=== PATIENT | male | born 1950 | race Caucasian/White ===

== ENCOUNTER 2017-08-15 07:22 | Outpatient (CLI) | payer MEDICARE, BC ==
--- NOTE | 2017-08-15 08:16 | ULT ---
RIGHT UPPER QUADRANT ULTRASOUND: HISTORY: Right-sided swelling for years. FINDINGS: Correlation is made with the CT stone protocol of 07/09/15. The liver measures 20.8 cm in length. There is mild inhomogeneity in the echotexture without focal mass or intrahepatic ductal dilatation. On the single image of the gallbladder, there is a question able shadowing gallstone. No gallbladder wall thickening or pericholecystic fluid is seen. The com mon duct measures 5 mm in diameter. The pancreas is normal. No right-sided hydronephrosis is seen. There are echogenic foci in the right kidney. No free fluid is seen in the Calderon's pouch. No definite mass is identified in the region of concern. IMPRESSION: 1. Hepatomegaly. 2. Probable gallstones. 3. Nonobstructing right renal calculi. POS: JAMIE
== END 2017-08-15 07:23 | disposition home or self-care (01) ==
LOC: ULT 07:22
PROVIDERS: ATTEND Family Medicine
DX: R19.00 Intra-abdominal and pelvic swelling, mass and lump, unspecified site (principal); R16.0 Hepatomegaly, not elsewhere classified; N20.0 Calculus of kidney
CPT/HCPCS: 76705

== ENCOUNTER 2018-08-19 10:18 | Emergency (ER) | payer MEDICARE, BC ==
[2018-08-19 11:00] LABS: #Basophils 0.1 thou/uL (0.0-0.2); #Eosinphils 0.2 thou/uL (0.0-0.7); #Lymphocytes 3.2 thou/uL (1.20-3.40); #Monocytes 0.4 thou/uL (0.11-0.59); #Neutrophils 5.8 thou/uL (1.40-6.50); %Basophils 1.1 % (0.0-1.0); %Eosinophils 1.7 % (0.0-10.0); %Lymphocytes 33.1 % (21.0-51.0); %Monocytes 4.3 % (0.0-10.0); %Neutrophils 59.8 % (42.0-75.0); Hemoglobin 14.3 g/dL (14.0-18.0); Mean Corpuscular HGB CONC 33.9 g/dL (32.0-36.0); Mean Corpuscular Hemoglobin 32.8 pg (27.0-31.0); Mean Corpuscular Volume 96.7 fL (78.0-98.0); Platelet Count 336 thou/uL (130-400); RBC Distribution Width 12.9 % (11.5-14.5); Red Blood Cell (RBC) Count 4.36 mill/uL (4.70-6.10); White Blood Cell (WBC) Count 9.6 thou/uL (4.8-10.8)
[2018-08-19 11:27] LABS: ALT (SGPT) 11 U/L (8-55); AST (SGOT) 29 U/L (5-34); Albumin 4.1 g/dL (3.4-4.8); Alkaline Phosphatase 107 U/L (40-150); Anion Gap 14 mmol/L (10-20); BUN (Urea Nitrogen) 20 mg/dL (8.4-25.7); Bilirubin, Total 0.3 mg/dL (0.2-1.2); CKMB 3.6 ng/mL (0-6.6); Calc. Creatinine Clearance 0 mL/min (70-130); Calcium 10.2 mg/dL (7.8-10.44); Carbon Dioxide 29 mmol/L (23-31); Chloride 98 mmol/L (98-107); Estimated GFR-MDRD 88; Globulin 4.1 g/dL (2.4-3.5); Glucose 153 mg/dL (80-115); Potassium 4.3 mmol/L (3.5-5.1); Protein, Total 8.2 g/dL (5.8-8.1); Sodium 137 mmol/L (136-145); Troponin I Less than 0.010 ng/mL (< 0.028)
--- NOTE | 2018-08-19 12:45 | CT ---
CT HEAD NONCONTRAST: INDICATIONS: Posttraumatic head injury. Pain. FINDINGS: There is prominence of the ventricular system, which is out of proportion to the size of the cerebral sulci. There is multifocal hypoattenuation of the cerebral hemispheres, compatible with moderate is chemic disease. There is superimposed left frontal encephalomalacia. No intracranial hemorrhage, ma ss effect, or midline shift. No depressed calvarial fracture or acute fluid level of the imaged para nasal sinuses. IMPRESSION: 1. No acute intracranial hemorrhage or mass effect. 2. Moderate ischemic disease with superimposed left frontal encephalomalacia. 3. Prominent sized ventricular system, out of proportion to the size of the cerebral sulci. Recomme nd clinical correlation to exclude normal pressure hydrocephalus. POS: JAMIE
[2018-08-19 12:47] LABS: Bilirubin Negative (Negative); Blood, Urine Negative (Negative); Clarity CLEAR (Clear); Glucose, Urine (Dipstick) Negative (Negative); Leukocyte Negative (Negative); Nitrite Negative (Negative); Protein, Urine (Dipstick) Trace mg/dL (Neg-Trace); Specific Gravity, Urine 1.024 (1.002-1.036)
== END 2018-08-19 18:57 | disposition home or self-care (01) ==
LOC: ERS 10:18
DX: S09.90XA Unspecified injury of head, initial encounter (principal); E11.9 Type 2 diabetes mellitus without complications; K21.9 Gastro-esophageal reflux disease without esophagitis; E78.5 Hyperlipidemia, unspecified; I10 Essential (primary) hypertension; G20 Parkinson's disease; E66.9 Obesity, unspecified; F32.9 Major depressive disorder, single episode, unspecified; F25.9 Schizoaffective disorder, unspecified; F42.9 Obsessive-compulsive disorder, unspecified; Z79.899 Other long term (current) drug therapy; Z79.4 Long term (current) use of insulin; W19.XXXA Unspecified fall, initial encounter
CPT/HCPCS: 36415; 36416; 70450; 80053; 81003; 82553; 83880; 84484; 85025; 93005

== ENCOUNTER 2018-11-28 08:56 | Emergency (ER) | payer MEDICARE, BC ==
[2018-11-28 09:47] LABS: #Eosinphils 0.3 thou/uL (0.0-0.7); #Lymphocytes 2.8 thou/uL (1.20-3.40); #Monocytes 0.9 thou/uL (0.11-0.59); #Neutrophils 7.4 thou/uL (1.40-6.50); %Basophils 0.4 % (0.0-1.0); %Eosinophils 2.6 % (0.0-10.0); %Lymphocytes 24.2 % (21.0-51.0); %Monocytes 8.1 % (0.0-10.0); %Neutrophils 64.6 % (42.0-75.0); Hemoglobin 14.8 g/dL (14.0-18.0); Mean Corpuscular HGB CONC 33.4 g/dL (32.0-36.0); Mean Corpuscular Hemoglobin 31.2 pg (27.0-31.0); Mean Corpuscular Volume 93.4 fL (78.0-98.0); Mean Platelet Volume 7.1 fL (7.4-10.4); Platelet Count 316 thou/uL (130-400); RBC Distribution Width 12.5 % (11.5-14.5); Red Blood Cell (RBC) Count 4.75 mill/uL (4.70-6.10); White Blood Cell (WBC) Count 11.5 thou/uL (4.8-10.8)
[2018-11-28 10:34] LABS: ALT (SGPT) 21 U/L (8-55); AST (SGOT) 30 U/L (5-34); Alkaline Phosphatase 112 U/L (40-150); Anion Gap 17 mmol/L (10-20); BUN (Urea Nitrogen) 17 mg/dL (8.4-25.7); Bilirubin, Total 0.4 mg/dL (0.2-1.2); Calc. Creatinine Clearance 0 mL/min (70-130); Carbon Dioxide 23 mmol/L (23-31); Chloride 101 mmol/L (98-107); Estimated GFR-MDRD Greater than 90; Glucose 141 mg/dL (80-115); Sodium 137 mmol/L (136-145)
--- NOTE | 2018-11-28 10:35 | RAD ---
CHEST 1 VIEW: Date: 11/28/18 HISTORY: Cough, worsening chronic pain. COMPARISON: 04/17/17. FINDINGS: Monitor leads overlie the chest. Old granulomatous disease. Right hemidiaphragm elevation, stable. Bi apical pleural thickening. IMPRESSION: Mild stable chronic changes. No confluent pneumonia, overt edema, pleural effusion, or other acute pr ocess. Atherosclerosis of the aorta. POS: TPC
[2018-11-28 11:12] LABS: Bilirubin Negative (Negative); Blood, Urine Negative (Negative); Clarity CLEAR (Clear); Glucose, Urine (Dipstick) Negative (Negative); Leukocyte Negative (Negative); Nitrite Negative (Negative); Protein, Urine (Dipstick) 30 mg/dL (Neg-Trace); Specific Gravity, Urine 1.023 (1.002-1.036)
[2018-11-28 11:16] LABS: Bacteria/HPF None Seen HPF (None Seen); Hyaline Casts/LPF 7-10 HYALINE CAST LPF (0-3 Hyaline); RBC/HPF 0-3 HPF (0-3); Squamous Epithelial 0-3 HPF (0-3); WBC/HPF 0-3 HPF (0-3)
== END 2018-11-28 12:41 | disposition home or self-care (01) ==
LOC: ERS 08:56
DX: G20 Parkinson's disease (principal); K21.9 Gastro-esophageal reflux disease without esophagitis; E11.9 Type 2 diabetes mellitus without complications; E78.5 Hyperlipidemia, unspecified; I10 Essential (primary) hypertension; E66.9 Obesity, unspecified; F32.9 Major depressive disorder, single episode, unspecified; F25.9 Schizoaffective disorder, unspecified; F41.9 Anxiety disorder, unspecified; Z79.899 Other long term (current) drug therapy; Z79.84 Long term (current) use of oral hypoglycemic drugs; Z79.82 Long term (current) use of aspirin; W19.XXXA Unspecified fall, initial encounter
CPT/HCPCS: 36415; 71045; 80053; 81003; 81015; 84484; 85025; 93005

== ENCOUNTER 2019-03-04 08:41 | Inpatient (IN) | payer MEDICARE, BC ==
[2019-03-04 10:00] LABS: #Basophils 0.1 thou/uL (0.0-0.2); #Eosinphils 0.1 thou/uL (0.0-0.7); #Lymphocytes 1.8 thou/uL (1.20-3.40); #Monocytes 0.6 thou/uL (0.11-0.59); #Neutrophils 15.1 thou/uL (1.40-6.50); %Basophils 0.3 % (0.0-1.0); %Eosinophils 0.5 % (0.0-10.0); %Lymphocytes 10.2 % (21.0-51.0); %Monocytes 3.4 % (0.0-10.0); %Neutrophils 85.6 % (42.0-75.0); Hemoglobin 12.7 g/dL (14.0-18.0); Mean Corpuscular Hemoglobin 32.6 pg (27.0-31.0); Mean Corpuscular Volume 95.9 fL (78.0-98.0); Mean Platelet Volume 6.9 fL (7.4-10.4); Platelet Count 316 thou/uL (130-400); RBC Distribution Width 12.4 % (11.5-14.5); White Blood Cell (WBC) Count 17.6 thou/uL (4.8-10.8)
--- NOTE | 2019-03-04 10:10 | RAD ---
Exam: Chest one view HISTORY:Loss of consciousness Comparison: 11/28/2018 FINDINGS: Cardiac silhouette:Enlarged Pulmonary vessels: Normal Costophrenic angles: Clear LUNGS: Patchy opacity in the left lung base which obscures the left hemidiaphragm. Correlate for pneu monia, atelectasis or aspiration. Persistent elevation of the right hemidiaphragm. Pneumothorax: None Osseous abnormalities: None IMPRESSION: Left lower lobe opacity as described above. Continued surveillance to ensure resolution.
[2019-03-04 10:27] LABS: Bilirubin Negative (Negative); Blood, Urine Negative (Negative); Clarity CLEAR (Clear); Glucose, Urine (Dipstick) Negative (Negative); Leukocyte Negative (Negative); Nitrite Negative (Negative); Protein, Urine (Dipstick) 30 mg/dL (Neg-Trace); Specific Gravity, Urine 1.024 (1.002-1.036)
[2019-03-04 10:31] LABS: Bacteria/HPF None Seen HPF (None Seen); Hyaline Casts/LPF 4-6 HYALINE CAST LPF (0-3 Hyaline); Pathc Cast-AUWi Flag 0.95 (0-2.49); RBC/HPF 0-3 HPF (0-3); Squamous Epithelial 0-3 HPF (0-3); WBC/HPF None Seen HPF (0-3)
[2019-03-04 10:33] LABS: ALT (SGPT) 18 U/L (8-55); AST (SGOT) 20 U/L (5-34); Albumin 3.8 g/dL (3.4-4.8); Alkaline Phosphatase 98 U/L (40-150); Anion Gap 13 mmol/L (10-20); BUN (Urea Nitrogen) 23 mg/dL (8.4-25.7); Bilirubin, Total 0.2 mg/dL (0.2-1.2); CK (CPK) 174 U/L (30-200); Calc. Creatinine Clearance 0 mL/min (70-130); Calcium 9.6 mg/dL (7.8-10.44); Carbon Dioxide 27 mmol/L (23-31); Chloride 104 mmol/L (98-107); Estimated GFR-MDRD 88; Globulin 3.3 g/dL (2.4-3.5); Glucose 136 mg/dL (80-115); Lipase 67 U/L (8-78); Potassium 3.7 mmol/L (3.5-5.1); Protein, Total 7.1 g/dL (5.8-8.1); Sodium 140 mmol/L (136-145)
[2019-03-04] MEDS ORDERED: Vancomycin HCl 750 MG in Sodium Chloride 0.9% 250 ML 250 ML IVPB SCH (10:45)
[2019-03-04 10:53] LABS: CKMB 5.3 ng/mL (0-6.6)
[2019-03-04] MEDS ORDERED: Aspirin Chewable 81 MG TAB ONE (10:58)
[2019-03-04] MEDS ORDERED: Piperacillin/Tazobactam 4.5 GM VIAL ONE ×2 (10:58→11:14)
[2019-03-04] MEDS ORDERED: Ondansetron PF 4 MG/2 ML Vial ONE (10:58)
--- NOTE | 2019-03-04 10:59 | CT ---
Exam: CT cervical spine without contrast HISTORY: Trauma. Pain. COMPARISON: 04/17/2017 FINDINGS: No craniocervical dissociation. Appropriate alignment of the lateral masses of C1 and C2. Intact odon toid process Appropriate alignment of the facets. Straightening of normal cervical lordosis may be due to patient position, muscle spasm or cervical collar. Current study does not assess for ligamentous injury. Soft tissue neck structures: No mass, lymphadenopathy or hematoma. No prevertebral soft tissue swelli ng. Upper mediastinum and lung apices: Unremarkable Central spinal canal: Varying degrees of central canal stenosis and neural foraminal narrowing on the basis of degenerative change. There is severe left neural foraminal narrowing at C3-C4 due to uncovertebral hypertrophy.. Evaluation is limited by technique Vertebral bodies: Cervical spine vertebral body height is maintained. No fracture. IMPRESSION: 1. No fracture 2. Straightening of normal cervical lordosis as above. If there is concern for ligamentous injury, co nsider MRI.
--- NOTE | 2019-03-04 11:31 | CT ---
CT BRAIN WITHOUT CONTRAST: HISTORY: Laceration to the back of the head. Altered mental status. COMPARISON: 08/19/2018 FINDINGS: Left frontal encephalomalacia and changes of chronic small vessel ischemic disease are again seen. T he ventricular size is stable, and the basilar cisterns are patent. No evidence of acute infarct, he morrhage, midline shift, or abnormal extraaxial fluid collections is seen. The bony calvarium is int act. The visualized paranasal sinuses and mastoid air cells are well aerated. IMPRESSION: No CT evidence of acute intracranial process. POS: OFF
[2019-03-04] MEDS ORDERED: Acetaminophen 325 MG TAB PO PRN (11:58)
[2019-03-04] MEDS ORDERED: Bisacodyl 5 MG TAB PO PRN (11:58)
[2019-03-04] MEDS ORDERED: Vancomycin HCl 1 GM in Premix Bag 1 BAG IVPB SCH (12:00)
[2019-03-04] MEDS ORDERED: Dextrose 50% Abboject 50 ML SYRINGE SLOW IVP PRN (12:36)
[2019-03-04] MEDS ORDERED: Dextrose 5% in Water 1,000 ML IV PRN (12:36)
--- NOTE | 2019-03-04 13:04 | HP ---
PRIMARY CARE PROVIDER: Dr. Jm Rizo. CHIEF COMPLAINT: Fall. HISTORY OF PRESENT ILLNESS: Mr. Arevalo is a pleasant 68-year-old gentleman, who was seen at [facility] on March 04, 2019. He reports that last night, he got out of bed to urinate. He had a fall at that time. He denies any chest pain or palpitations at that time. He denies any lightheadedness. He does not know how he fell. He was found by EMS on the floor face forward, complaining of pain in his neck. He currently denies any chest pain or shortness of breath. He denies any cough. He denies any fevers or chills. He denies any urinary symptoms. REVIEW OF SYSTEMS: All other systems reviewed and found to be negative. PAST MEDICAL HISTORY: 1. Hypertension. 2. Diabetes mellitus. 3. Parkinson disease. 4. Gastroesophageal reflux disease. 5. Dyslipidemia. 6. Nephrolithiasis. PAST SURGICAL HISTORY: Surgery for deviated septum, tonsillectomy, growth on penis, and nephrolithiasis. PSYCHIATRIC HISTORY: Anxiety. SOCIAL HISTORY: The patient denies tobacco use, alcohol use, or recreational drug use. He lives at home. FAMILY HISTORY: Significant for heart disease. ALLERGIES: NO KNOWN DRUG ALLERGIES. CURRENT MEDICATIONS: 1. Metformin 500 mg 2 times a day. 2. Verapamil 180 mg daily. 3. Venlafaxine 150 mg daily. 4. Olanzapine 10 mg daily. 5. Losartan 100 mg daily. 6. Levothyroxine 50 mcg daily. 7. Clomipramine 75 mg, 3 capsules daily. 8. Amitiza 24 mcg daily. 9. Aspirin 81 mg daily. 10. Colace p.r.n. 11. Fish oil 1000 mg daily. 12. Hydrochlorothiazide 25 mg daily. 13. Tamsulosin 0.4 mg daily. 14. Zoloft 25 mg daily. 15. Atorvastatin 10 mg daily. 16. Carbidopa 2 times a day. PHYSICAL EXAMINATION: GENERAL: On examination, Mr. Arevalo is awake and alert, not in acute distress. VITAL SIGNS: Blood pressure is 167/85, pulse 99, respiratory rate 16, and oxygen saturation 98% on 2 L of oxygen. He is afebrile. EYES: No scleral icterus, no conjunctival pallor. ENT: Moist mucosal membranes. No oropharyngeal erythema or exudates. NECK: He has a cervical collar in place. Trachea is midline. RESPIRATORY: Accessory muscles of breathing are not active. Chest wall movements are symmetric bilaterally. Lungs are clear to auscultation without wheeze, rhonchi, or crepitations. CARDIOVASCULAR: S1 and S2 are heard, regular. Peripheral pulses palpable. No carotid bruit. No pericardial rub. NEUROLOGIC: Cranial nerves 2 through 12 intact, deep tendon reflexes 2+. The patient has tremor. MUSCULOSKELETAL: Power is 5/5 in all 4 extremities. ABDOMEN: Soft, nontender, bowel sounds are heard. SKIN: Blood over the posterior occiput. LYMPHATIC: No cervical lymphadenopathy. PSYCHIATRIC: Normal mood, normal affect, the patient is oriented to person, place, and time. LABORATORY DATA AND IMAGING: Mr. Arevalo's labs and investigations were reviewed. I reviewed his electrocardiogram, which shows normal sinus rhythm, no ST changes to suggest an acute coronary syndrome. I also reviewed his chest x-ray, which shows left lower lobe opacity. CT scan of the cervical spine did not show any fracture. There was straightening of normal cervical lordosis. Noncontrast CT scan of the brain did not show any acute intracranial process. He has leukocytosis with 17,600 white cells, of which 85.6% are neutrophils, normocytic anemia with hemoglobin 12.7, normal platelet count, unremarkable comprehensive metabolic profile, normal lipase, indeterminate troponin-I of 0.044, and urinalysis that is negative for nitrite and leukocyte esterase. CK is normal. ASSESSMENT AND PLAN: Mr. Arevalo is a pleasant 68-year-old gentleman, who was seen at [facility] on March 04, 2019. His problem list includes: 1. Sepsis: Mr. Arevalo is presenting with sepsis, most likely secondary to pneumonia. He will be admitted to the hospital for further management. 2. Pneumonia: The patient has received vancomycin and Zosyn, which I will continue. We will follow blood cultures. 3. Fall: Emergency room physician has discussed his case with Neurosurgery Service, regarding CT spine findings. We will await their opinion. 4. Parkinson disease: We will continue home medications. 5. Diabetes mellitus type 2: We will start Accu-Cheks and insulin sliding scale. 6. Dyslipidemia: Continue statin. 7. Hypothyroidism: Continue levothyroxine. LEVEL OF RISK: High. LEVEL OF COMPLEXITY: High. Many thanks for allowing me to participate in your patient's care. Please feel free to contact me with any questions or concerns. Job ID: [id number]
[2019-03-04 13:39] LABS: Troponin I 0.093 ng/mL (< 0.028)
[2019-03-04 17:54] LABS: Troponin I 0.061 ng/mL (< 0.028)
[2019-03-04] MEDS: Piperacillin/Tazobactam 4.5 GM in Sodium Chloride 0.9% 100 ML IVPB SCH (22:32)
--- NOTE | 2019-03-05 01:58 | CON ---
DATE OF CONSULTATION: This is Samson Brown PA-C dictating a report for Geoff Leos MD. This is a 50 minutes [id number] evaluation of which greater than 50% of the exam was spent in counseling and coordinating the patient's care. Remainder of the exam was spent review of the patient's medical records and formulation of treatment plan as well as review of appropriate imaging studies. CHIEF COMPLAINT: Status post fall with posterior neck pain. HISTORY OF PRESENT ILLNESS: Mr. Lux is a 68-year-old male who lives in a [place] [facility] [place], apparently fell earlier this morning when attempting to go to the bathroom. He states he has had moderate posterior neck pain over the past several weeks, it was slightly worse today after a fall. He denies headaches, blurred vision, pain into the arms or legs or balance difficulties. He is a rather poor historian. He was found to have elevated troponin levels in the ER as well as pneumonia infection. Complained of again neck pain and was placed in an [place] collar. Review of patient's head CT shows no acute hemorrhage. Review of patient's cervical spine CT shows no acute fracture or malalignment of spine. The patient is on 81 mg aspirin for cardiac prophylaxis. He does not appear to have a history of CVA or CA. The patient also has a history of Parkinson disease with tremor. PHYSICAL EXAMINATION: GENERAL: The patient is awake, alert, and appropriate. His GCS currently is 15. HEENT: Pupils are equal, round, reactive bilaterally. EXTREMITIES: He has good strength in the bilateral upper and bilateral lower extremities. He does have tremors consistent with Parkinson's disease. He is in a well-fitting [place] collar. Upon palpation of the neck, he does not appear to grimace or have any type of significant pain. IMPRESSION AND DIAGNOSIS: Status post fall with [id number] neck pain. PLAN: I have discussed the patient's case and imaging with Dr. Leos. At this time, there is no acute hemorrhage of the brain, so should the patient need blood thinners given his elevated troponin levels, we will defer to Cardiology in this regard. Never the less, we will keep the patient in his [place] collar overnight although may be able to remove this tomorrow morning as the patient states his neck pain has gotten better with time. Our medical colleagues have admitted the patient and will continue close monitoring of his multiple medical issues. We will check back on the patient, but otherwise he is neurologically intact and does not require any type of neurosurgical intervention. We will hold on MRI at this time as again the patient does not have any neurologic deficits nor does he have any cervical radiculopathy complaints. Please call with any changes in the patient's neurologic status, otherwise we will check back on the patient later. Job ID: [id number]
[2019-03-05 02:25] VITALS: BMI 34.2
[2019-03-05] MEDS: Piperacillin/Tazobactam 4.5 GM in Sodium Chloride 0.9% 100 ML IVPB SCH ×3 (04:13→21:40)
[2019-03-05 05:57] LABS: #Basophils 0.1 thou/uL (0.0-0.2); #Eosinphils 0.2 thou/uL (0.0-0.7); #Lymphocytes 3.5 thou/uL (1.20-3.40); #Monocytes 0.7 thou/uL (0.11-0.59); #Neutrophils 8.3 thou/uL (1.40-6.50); %Basophils 0.8 % (0.0-1.0); %Eosinophils 1.4 % (0.0-10.0); %Lymphocytes 27.4 % (21.0-51.0); %Monocytes 5.4 % (0.0-10.0); Hemoglobin 12.3 g/dL (14.0-18.0); Mean Corpuscular HGB CONC 33.6 g/dL (32.0-36.0); Mean Corpuscular Hemoglobin 32.3 pg (27.0-31.0); Mean Corpuscular Volume 96.3 fL (78.0-98.0); Mean Platelet Volume 7.1 fL (7.4-10.4); Platelet Count 320 thou/uL (130-400); RBC Distribution Width 12.6 % (11.5-14.5); Red Blood Cell (RBC) Count 3.79 mill/uL (4.70-6.10); White Blood Cell (WBC) Count 12.7 thou/uL (4.8-10.8)
[2019-03-05 06:24] LABS: Anion Gap 11 mmol/L (10-20); BUN (Urea Nitrogen) 18 mg/dL (8.4-25.7); Calc. Creatinine Clearance 125 mL/min (70-130); Calcium 9.1 mg/dL (7.8-10.44); Carbon Dioxide 28 mmol/L (23-31); Chloride 104 mmol/L (98-107); Estimated GFR-MDRD Greater than 90; Glucose 174 mg/dL (80-115); Potassium 3.9 mmol/L (3.5-5.1); Sodium 139 mmol/L (136-145)
--- NOTE | 2019-03-05 08:59 | PRG ---
DATE OF SERVICE: 03/05/2019 This is Samson Brown PA-C dictating a report for Geoff Leos MD. This is a 10-minute subsequent patient evaluation, in which greater than 50% of the exam was spent in counseling and coordinating the patient's care. Remainder of the exam was spent in review of the patient's medical records and formulation of treatment plan. Mr. Arevalo is hospital day #1, having sustained an unwitnessed fall yesterday. He was found to have pneumonia and possibly his sepsis, which our medical colleagues are treating this. In regard to the patient's neck pain, he states that he has increased neck pain secondary to the restriction of his [place] collar. With tenderness to palpation of the cervical spine, he has no increased pain. He has no arm pain. He has good strength in bilateral upper and bilateral lower extremities with intact sensation to light touch throughout. At this time, it is safe to remove his [place] collar. Should this be removed, and the patient has increased neck pain, we will replace the [place] collar. We will follow up with the patient in the next 2 weeks with upright AP flexion and extension of cervical spine x-rays in the office. At this time, Neurosurgery will sign off, but certainly call with any changes in the patient's neurologic status. Job ID: [id number]
[2019-03-05] MEDS ORDERED: Prevnar 13-Val Conj/PF 0.5 ML SYRINGE IM ONE (09:00)
[2019-03-05] MEDS ORDERED: Vancomycin HCl 1.75 GM in Sodium Chloride 0.9% 500 ML IVPB SCH (09:00)
[2019-03-05] MEDS: Vancomycin HCl 1.75 GM in Sodium Chloride 0.9% 500 ML IVPB SCH ×2 (12:10→23:16)
--- NOTE | 2019-03-05 15:26 | PDOC.PN ---
- Subjective Encounter Start Date: 03/05/19 Encounter Start Time: 15:20 Subjective: f/u for sepsis due to LLL PNA on Zosyn/Vancomycin. Feels ok overall. -: + BM. No new complaints. - Objective Resuscitation Status - Order Detail: 03/04/19 11:58 Resuscitation Status Routine Resuscitation Status: FULL: Full Resuscitation Discussed with: patient LAMBERTO Reviewed: Yes Vital Signs & Weight: Vital Signs (12 hours) Temp Pulse Pulse Pulse Resp BP BP 03/05/19 11:30 91 89 139/64 145/71 H 03/05/19 11:27 97.3 F L 85 16 03/05/19 08:00 98.3 F 85 18 03/05/19 04:07 97.8 F 88 18 BP Pulse Ox 03/05/19 11:30 03/05/19 11:27 127/69 03/05/19 08:00 139/72 92 L 03/05/19 04:07 129/69 97 Weight Weight 225 lb 6.4 oz I&O: 03/04/19 03/05/19 03/06/19 06:59 06:59 06:59 Intake Total 300 Balance 300 Result Diagrams: 03/05/19 05:00 03/05/19 05:00 Additional Labs: Accuchecks 03/05/19 03/05/19 03/05/19 10:57 05:23 01:35 POC Glucose 182 H 195 H 194 H 03/05/19 00:21 POC Glucose 194 H Microbiology 03/04/19 11:09 Venous blood - Left Hand Blood Culture - Preliminary Specimen has been received and culture in progress. No Growth to date. 03/04/19 11:07 Venous blood - Right Arm Blood Culture - Preliminary Specimen has been received and culture in progress. No Growth to date. 03/04/19 09:55 Urine clean catch Urine Culture - Preliminary Laboratory Tests 03/04/19 03/05/19 09:51 05:00 WBC 17.6 H Hgb 12.7 L Neutrophils % 85.6 H 65.0 EKG Reviewed by me: Yes (Tele - SR) Phys Exam - Physical Examination Constitutional: NAD HEENT: PERRLA, sclera anicteric, oral pharynx no lesions Neck: no nodes, no JVD, supple, full ROM Respiratory: no wheezing, no rales, no rhonchi, clear to auscultation bilateral Cardiovascular: RRR, no significant murmur, no rub, gallop Gastrointestinal: soft, non-tender, no distention, positive bowel sounds Musculoskeletal: no edema, pulses present Neurological: normal sensation, moves all 4 limbs Psychiatric: A&O x 3 Skin: normal turgor, cap refill <2 seconds Dx/Plan (1) Sepsis Code(s): A41.9 - SEPSIS, UNSPECIFIED ORGANISM Status: Acute Comment: Secondary to #2, continue mgmt as outlined below, resolving (2) Bacterial pneumonia Code(s): J15.9 - UNSPECIFIED BACTERIAL PNEUMONIA Status: Acute Comment: LLL infiltrate, continue Zosyn/Vancomycin, supportive mgmt, Pneumovax given (3) Parkinson disease Code(s): G20 - PARKINSON'S DISEASE Status: Chronic Comment: Resume home Sinemet, Fall precautions (4) Fall Code(s): W19.XXXA - UNSPECIFIED FALL, INITIAL ENCOUNTER Status: Acute Comment: Likely multifactorial, PT evaluation (5) Generalized weakness Code(s): R53.1 - WEAKNESS Status: Acute Comment: Secondary to #1 (6) DM2 (diabetes mellitus, type 2) Status: Chronic Comment: ISS, ADA, resume Levemir, Metformin (7) HTN (hypertension) Code(s): I10 - ESSENTIAL (PRIMARY) HYPERTENSION Status: Chronic Qualifiers: Hypertension type: essential hypertension Qualified Code(s): I10 - Essential (primary) hypertension Comment: Resume home BP regimen, serial monitoring - Plan continue antibiotics, PT/OT, certified social workers in health care, out of bed/ambulate, DVT proph w/ SCDs Stable currently -: Continue Vanc/Zosyn -: PT evaluation for functional assessment -: Resume Sinemet -: AM lab: BMP, CBC * .
--- NOTE | 2019-03-05 15:40 | PRG ---
DATE OF SERVICE: 03/05/2019 This is a 30-minute initial hospital visit note, in which 30 minutes were spent reviewing the imaging record, evaluation, and examination of the patient, formulation of plan. Greater than 50% time spent in counseling on Kavon Arevalo. Mr. Arevalo is a 68-year-old man, who was involved in a fall. He presented with negative craniospinal imaging; however, did have neck pain upon our exam. However, he endorses no neck pain and feels as if his neck feels better with his collar off. He does have a parkinsonian tremor, but is alert and appropriate, and follows commands in all four extremities. IMPRESSION AND PLAN: The patient may be dismissed whenever deemed stable from my standpoint. No need for neurosurgical followup. DIAGNOSIS: Neck pain, status post fall. Job ID: [id number]
[2019-03-05] MEDS ORDERED: CLOMIPRAMINE HCL 75 MG PO SCH (17:00)
[2019-03-05] MEDS: metFORMIN XR 500 MG TAB PO SCH (17:51)
[2019-03-05] MEDS: HumaLOG 300 UNITS/3 ML VIAL SC PRN (17:57)
[2019-03-05] MEDS ORDERED: INSULIN DETEMIR SC SCH (21:00)
[2019-03-05] MEDS ORDERED: Clopidogrel Bisulfate 75 MG TAB ONE (21:03)
[2019-03-05] MEDS: Atorvastatin Calcium 20 MG TAB PO SCH (21:40)
[2019-03-05] MEDS: Carbidopa/Levodopa 25-250 mg Tablet PO SCH (21:40)
[2019-03-05] MEDS: OXcarbazepine 300 MG TAB PO SCH (21:40)
[2019-03-05] MEDS: PRE FILLED SC SCH (21:47)
[2019-03-05] MEDS: INSULIN GLARGINE SC SCH (21:47)
[2019-03-05] MEDS: OLANZapine 5 MG TAB PO SCH (21:54)
[2019-03-06] MEDS: Piperacillin/Tazobactam 4.5 GM in Sodium Chloride 0.9% 100 ML IVPB SCH ×3 (04:20→20:52)
[2019-03-06] MEDS: Levothyroxine Sodium 50 MCG TAB PO SCH (05:44)
[2019-03-06 08:32] LABS: Vancomycin, Trough 24.3 ug/mL
[2019-03-06 08:33] LABS: Anion Gap 12 mmol/L (10-20); BUN (Urea Nitrogen) 12 mg/dL (8.4-25.7); Calc. Creatinine Clearance 143 mL/min (70-130); Calcium 9.1 mg/dL (7.8-10.44); Carbon Dioxide 25 mmol/L (23-31); Chloride 105 mmol/L (98-107); Estimated GFR-MDRD Greater than 90; Glucose 159 mg/dL (80-115); Potassium 3.8 mmol/L (3.5-5.1); Sodium 138 mmol/L (136-145)
[2019-03-06 08:34] LABS: Hemoglobin 12.4 g/dL (14.0-18.0); Mean Corpuscular HGB CONC 33.8 g/dL (32.0-36.0); Mean Corpuscular Hemoglobin 32.5 pg (27.0-31.0); Mean Corpuscular Volume 96.3 fL (78.0-98.0); Platelet Count 302 thou/uL (130-400); RBC Distribution Width 12.6 % (11.5-14.5); White Blood Cell (WBC) Count 10.7 thou/uL (4.8-10.8)
[2019-03-06] MEDS: Losartan 25 MG TAB PO SCH (08:50)
[2019-03-06] MEDS: Lubiprostone 24 MCG CAP PO SCH (08:50)
[2019-03-06] MEDS: Tamsulosin HCl 0.4 MG CAP PO SCH (08:50)
[2019-03-06] MEDS: Venlafaxine HCl XR 150 MG CAP PO SCH (08:50)
[2019-03-06] MEDS: Docusate 100 MG CAP PO SCH (08:51)
[2019-03-06] MEDS: Hydrochlorothiazide 25 MG TAB PO SCH (08:51)
[2019-03-06] MEDS: Fish Oil 1,000 MG CAP PO SCH (08:51)
[2019-03-06] MEDS: metFORMIN XR 500 MG TAB PO SCH ×2 (08:51→16:17)
[2019-03-06] MEDS: Carbidopa/Levodopa 25-250 mg Tablet PO SCH ×3 (08:51→20:55)
[2019-03-06] MEDS: Aspirin 81 mg Enteric Coated Tablet PO SCH (08:51)
[2019-03-06 08:54] LABS: Band 1 % (5-11); Eosinophils 1 % (0-10); Lymphocytes 40 % (21-51); MDiff Complete? YES; Monocytes 4 % (0-10); Neutrophil 53 % (42-75); RBC Morphology Normal
[2019-03-06] MEDS: INSULIN GLARGINE SC SCH ×2 (08:56→20:56)
[2019-03-06] MEDS: PRE FILLED SC SCH ×2 (08:56→20:56)
[2019-03-06] MEDS: Vancomycin HCl 1.75 GM in Sodium Chloride 0.9% 500 ML IVPB SCH (11:36)
[2019-03-06] MEDS: HumaLOG 300 UNITS/3 ML VIAL SC PRN ×3 (11:36→21:58)
--- NOTE | 2019-03-06 14:03 | PDOC.PN ---
- Subjective Encounter Start Date: 03/06/19 Encounter Start Time: 14:00 Subjective: f/u for sepsis due to LLL PNA on Zosyn/Vancomycin. Feels better overall. -: No documented fevers. - Objective Resuscitation Status - Order Detail: 03/04/19 11:58 Resuscitation Status Routine Resuscitation Status: FULL: Full Resuscitation Discussed with: patient Vital Signs & Weight: Vital Signs (12 hours) Temp Pulse Resp BP Pulse Ox 03/06/19 11:31 98.7 F 68 16 126/63 96 03/06/19 08:51 97 03/06/19 07:41 98.0 F 81 20 128/64 97 03/06/19 04:00 98.5 F 94 18 143/74 H 95 Weight Weight 226 lb 3.2 oz I&O: 03/05/19 03/06/19 03/07/19 06:59 06:59 06:59 Intake Total 300 1340 Output Total 0 Balance 300 1340 Result Diagrams: 03/06/19 07:50 03/06/19 07:50 Additional Labs: Accuchecks 03/06/19 03/06/19 03/05/19 09:52 05:56 20:43 POC Glucose 240 H 170 H 202 H 03/05/19 16:56 POC Glucose 249 H Microbiology 03/04/19 09:55 Urine clean catch Urine Culture - Final Streptococcus agalactiae Gp. B 03/04/19 11:09 Venous blood - Left Hand Blood Culture - Preliminary Specimen has been received and culture in progress. No Growth to date. 03/04/19 11:09 Venous blood - Left Hand Blood Culture - Preliminary NO GROWTH AT 48 HOURS 03/04/19 11:07 Venous blood - Right Arm Blood Culture - Preliminary Specimen has been received and culture in progress. No Growth to date. 03/04/19 11:07 Venous blood - Right Arm Blood Culture - Preliminary NO GROWTH AT 48 HOURS 03/04/19 09:55 Urine clean catch Urine Culture - Preliminary Laboratory Tests 03/04/19 03/05/19 03/06/19 09:51 05:00 07:50 WBC 17.6 H 12.7 H Hgb 12.7 L 12.3 L Neutrophils % 85.6 H 65.0 Neutrophils % (Manual) Vancomycin Trough 24.3 03/06/19 07:50 WBC Hgb Neutrophils % Neutrophils % (Manual) 53 Vancomycin Trough EKG Reviewed by me: Yes (Tele - SR) Phys Exam - Physical Examination Constitutional: NAD HEENT: PERRLA, sclera anicteric, oral pharynx no lesions Neck: no nodes, no JVD, supple, full ROM diminished in bases, occ rhonchi S1, S2 Cardiovascular: RRR, no significant murmur, no rub, gallop Gastrointestinal: soft, non-tender, no distention, positive bowel sounds Musculoskeletal: no edema, pulses present resting tremors in hands Neurological: normal sensation, moves all 4 limbs Psychiatric: A&O x 3 Skin: normal turgor, cap refill <2 seconds Dx/Plan (1) Sepsis Code(s): A41.9 - SEPSIS, UNSPECIFIED ORGANISM Status: Acute Comment: Secondary to #2, continue mgmt as outlined below, resolving (2) Bacterial pneumonia Code(s): J15.9 - UNSPECIFIED BACTERIAL PNEUMONIA Status: Acute Comment: LLL infiltrate, continue Zosyn/Vancomycin, supportive mgmt, Pneumovax given (3) Parkinson disease Code(s): G20 - PARKINSON'S DISEASE Status: Chronic Comment: Resume home Sinemet, Fall precautions (4) Fall Code(s): W19.XXXA - UNSPECIFIED FALL, INITIAL ENCOUNTER Status: Acute Comment: Likely multifactorial, PT evaluation (5) Generalized weakness Code(s): R53.1 - WEAKNESS Status: Acute Comment: Secondary to #1 (6) DM2 (diabetes mellitus, type 2) Status: Chronic Comment: ISS, ADA, resume Levemir, Metformin (7) HTN (hypertension) Code(s): I10 - ESSENTIAL (PRIMARY) HYPERTENSION Status: Chronic Qualifiers: Hypertension type: essential hypertension Qualified Code(s): I10 - Essential (primary) hypertension Comment: Resume home BP regimen, serial monitoring - Plan continue antibiotics, PT/OT, hospice social worker, out of bed/ambulate, DVT proph w/ SCDs Stable currently -: Continue Vanc/Zosyn another 24h then de-escalate coverage -: Continue Levemir, Metformin -: OOB with PT -: Likely home in am * .
[2019-03-06] MEDS: OXcarbazepine 300 MG TAB PO SCH (20:55)
[2019-03-06] MEDS: Atorvastatin Calcium 20 MG TAB PO SCH (20:55)
[2019-03-06] MEDS: OLANZapine 5 MG TAB PO SCH (20:59)
[2019-03-06 23:58] LABS: Vancomycin, Trough 20.6 ug/mL
[2019-03-07] MEDS ORDERED: Melatonin 3 MG TAB PO PRN (00:38)
[2019-03-07] MEDS: Vancomycin HCl 1.25 GM in Sodium Chloride 0.9% 250 ML 250 ML IVPB SCH ×2 (00:50→14:38)
[2019-03-07] MEDS: Piperacillin/Tazobactam 4.5 GM in Sodium Chloride 0.9% 100 ML IVPB SCH ×2 (04:48→14:38)
[2019-03-07] MEDS: Levothyroxine Sodium 50 MCG TAB PO SCH (05:01)
[2019-03-07] MEDS: Lubiprostone 24 MCG CAP PO SCH (10:02)
[2019-03-07] MEDS: Losartan 25 MG TAB PO SCH (10:02)
[2019-03-07] MEDS: Aspirin 81 mg Enteric Coated Tablet PO SCH (10:03)
[2019-03-07] MEDS: Fish Oil 1,000 MG CAP PO SCH (10:04)
[2019-03-07] MEDS: metFORMIN XR 500 MG TAB PO SCH ×2 (10:04→17:05)
[2019-03-07] MEDS: Tamsulosin HCl 0.4 MG CAP PO SCH (10:04)
[2019-03-07] MEDS: Hydrochlorothiazide 25 MG TAB PO SCH (10:04)
[2019-03-07] MEDS: Carbidopa/Levodopa 25-250 mg Tablet PO SCH ×2 (10:04→17:05)
[2019-03-07] MEDS: Docusate 100 MG CAP PO SCH (10:04)
[2019-03-07] MEDS: Venlafaxine HCl XR 150 MG CAP PO SCH (10:04)
[2019-03-07] MEDS: INSULIN GLARGINE SC SCH (10:05)
[2019-03-07] MEDS: PRE FILLED SC SCH (10:05)
[2019-03-07 17:23] VITALS: BP 133/71; TEMP 98.4
--- NOTE | 2019-03-09 14:45 | DIS ---
DATE OF ADMISSION: 03/04/2019 DATE OF DISCHARGE: 03/07/2019 DISCHARGE DIAGNOSES: 1. Sepsis secondary to #2, resolving. 2. Bacterial pneumonia suspected gram-positive cocci, left lower lobe involvement. 3. Parkinson disease. 4. Status post mechanical fall. 5. Generalized weakness. 6. Diabetes mellitus type 2, insulin requiring. 7. Hypertension, stable. CONSULTATIONS: None. PERTINENT LAB AND X-RAY FINDINGS: Basic metabolic profile within normal limits. Troponin I ranged between 0.044 to 0.093. CBC showed a white blood cell count ranged between 10.7 to 17.6. Hemoglobin ranged between 12.3 to 12.7. Urine culture dated 03/04/2019 showed less than 5000 colonies of Streptococcus agalactiae group B. Blood cultures x2 dated 03/04/2019 showed no growth at [address] of the brain without contrast dated 03/04/2019 showed no acute intracranial process. CT of the cervical spine dated 03/04/2019 showed no acute fracture. Portable chest x-ray dated 03/04/2019 showed left lower lobe opacity. HOSPITAL COURSE: The patient was initially admitted to the telemetry unit after presenting status post mechanical fall and generalized weakness. The patient underwent extensive evaluation including chest imaging showing evidence of left lower lobe infiltrate concerning for bacterial pneumonia. The patient was placed on broad-spectrum antibiotic therapy with Zosyn and vancomycin, and monitored for clinical response. The patient was not meeting sepsis criteria and managed per sepsis protocol. Blood cultures were obtained and negative x48 hours as stated previously. The patient continued to clinically improve and stabilize with supportive management. Telemetry monitoring showed sinus mechanism without evidence of acute arrhythmia or dysrhythmia. I have examined the patient at the time of discharge and discussed followup instructions. The patient verbalized understanding and in agreement and ready for discharge on 03/07/2019. DISCHARGE MEDICATIONS: 1. Enteric-coated aspirin 81 mg p.o. daily. 2. Carbidopa levodopa 25/250 mg 1 tablet p.o. t.i.d. 3. Anafranil 75 mg p.o. b.i.d. 4. Docusate 100 mg p.o. daily. 5. Hydrochlorothiazide 25 mg p.o. daily. 6. Levemir 77 units subcutaneously b.i.d. 7. Levothyroxine 50 mcg p.o. daily. 8. Losartan 100 mg p.o. daily. 9. Amitiza 24 mcg p.o. daily. 10. Metformin extended release 500 mg p.o. b.i.d. 11. Olanzapine 5 mg p.o. at bedtime. 12. Oxcarbazepine 600 mg p.o. at bedtime. 13. Zoloft 100 mg p.o. daily. 14. Flomax 0.4 mg p.o. daily. 15. Venlafaxine extended release 150 mg p.o. daily. 16. Lipitor 20 mg p.o. at bedtime. 17. Levaquin 750 mg p.o. daily x7 days. 18. Verapamil extended release 180 mg p.o. daily. FOLLOWUP: The patient will follow up with Dr. Jm Rizo within 7 days of discharge. The patient may follow up with Dr. Josafat Herrera and to call his office for appointment time and date. CONDITION ON DISCHARGE: Stable. ACTIVITY: Ad-madan. Rolling walker with standby assistance. DIET: ADA and heart healthy. CODE STATUS: Full. DISPOSITION: To home, 03/07/2019. TIME SPENT: Total time preparing and coordinating discharge, 32 minutes. Job ID: [id number]
== END 2019-03-07 17:28 | disposition home health service (06) | DRG 871 ==
LOC: ERS 08:41 → ERHOLD 11:44 → 2NO 12:28
PROVIDERS: ADMIT Internal Medicine; ATTEND Internal Medicine
DX: A41.9 Sepsis, unspecified organism (principal); J15.9 Unspecified bacterial pneumonia; G20 Parkinson's disease; E11.9 Type 2 diabetes mellitus without complications; I10 Essential (primary) hypertension; K21.9 Gastro-esophageal reflux disease without esophagitis; E78.5 Hyperlipidemia, unspecified; F41.9 Anxiety disorder, unspecified; E03.9 Hypothyroidism, unspecified; M54.2 Cervicalgia; W19.XXXA Unspecified fall, initial encounter; Z90.89 Acquired absence of other organs; Z79.84 Long term (current) use of oral hypoglycemic drugs; Z79.82 Long term (current) use of aspirin; Z87.442 Personal history of urinary calculi; Z79.899 Other long term (current) drug therapy
CPT/HCPCS: 36415; 36416; 51701; 70450; 71045; 72125; 80048; 80053; 80202; 81003; 81015; 82550; 82553; 83605; 83690; 84484; 85007; 85025; 85027; 87040; 87077; 87086; 90471; 90670; 93005; 94760; 96361; 96365; 96367; 96375; G0009; J1825; J2405; J2543; J3370; J3490; J7050

== ENCOUNTER 2019-03-13 09:27 | Emergency (ER) | payer MEDICARE, BC ==
[2019-03-13 10:29] LABS: #Basophils 0.1 thou/uL (0.0-0.2); #Eosinphils 0.4 thou/uL (0.0-0.7); #Lymphocytes 2.9 thou/uL (1.20-3.40); #Monocytes 0.6 thou/uL (0.11-0.59); %Basophils 0.7 % (0.0-1.0); %Eosinophils 3.3 % (0.0-10.0); %Lymphocytes 26.4 % (21.0-51.0); %Monocytes 5.3 % (0.0-10.0); %Neutrophils 64.2 % (42.0-75.0); Hemoglobin 13.4 g/dL (14.0-18.0); Mean Corpuscular HGB CONC 34.1 g/dL (32.0-36.0); Mean Corpuscular Hemoglobin 32.5 pg (27.0-31.0); Mean Corpuscular Volume 95.3 fL (78.0-98.0); Mean Platelet Volume 6.9 fL (7.4-10.4); Platelet Count 344 thou/uL (130-400); RBC Distribution Width 12.6 % (11.5-14.5); Red Blood Cell (RBC) Count 4.13 mill/uL (4.70-6.10)
[2019-03-13 10:59] LABS: ALT (SGPT) 25 U/L (8-55); AST (SGOT) 23 U/L (5-34); Albumin 4.1 g/dL (3.4-4.8); Alkaline Phosphatase 94 U/L (40-150); Anion Gap 13 mmol/L (10-20); BUN (Urea Nitrogen) 25 mg/dL (8.4-25.7); Bilirubin, Total 0.3 mg/dL (0.2-1.2); Calc. Creatinine Clearance 0 mL/min (70-130); Calcium 10.2 mg/dL (7.8-10.44); Carbon Dioxide 29 mmol/L (23-31); Chloride 100 mmol/L (98-107); Estimated GFR-MDRD 86; Globulin 3.7 g/dL (2.4-3.5); Glucose 130 mg/dL (80-115); Protein, Total 7.8 g/dL (5.8-8.1); Sodium 138 mmol/L (136-145)
--- NOTE | 2019-03-13 11:32 | RAD ---
TWO VIEWS CHEST: DATE: 03/13/2019. PROVIDED CLINICAL HISTORY: Weakness. FINDINGS: Comparison 03/04/2019. The cardiac and mediastinal silhouette is within normal limits. Vascular calc ification involves the aortic arch. No focal consolidation, pleural fluid, or pneumothorax apparent. IMPRESSION: No evidence for an acute cardiopulmonary process. POS: [facility]
[2019-03-13 15:15] LABS: Bilirubin Negative (Negative); Blood, Urine Negative (Negative); Clarity CLEAR (Clear); Glucose, Urine (Dipstick) Negative (Negative); Leukocyte Negative (Negative); Nitrite Negative (Negative); Protein, Urine (Dipstick) Negative (Neg-Trace); Specific Gravity, Urine 1.021 (1.002-1.036); pH, Urine 6.5 (5.0-9.0)
== END 2019-03-13 16:31 ==
LOC: ERS 09:27
DX: G20 Parkinson's disease (principal); F03.90 Unspecified dementia, unspecified severity, without behavioral disturbance, psychotic disturbance, mood disturbance, and anxiety; R53.1 Weakness; E11.9 Type 2 diabetes mellitus without complications; K21.9 Gastro-esophageal reflux disease without esophagitis; E78.5 Hyperlipidemia, unspecified; E66.9 Obesity, unspecified; F41.9 Anxiety disorder, unspecified; F25.9 Schizoaffective disorder, unspecified; Z79.899 Other long term (current) drug therapy; Z79.82 Long term (current) use of aspirin; Z79.84 Long term (current) use of oral hypoglycemic drugs
CPT/HCPCS: 36415; 51701; 71046; 80053; 81003; 83605; 85025; 93005

== ENCOUNTER 2019-05-08 11:55 | Inpatient (IN) | payer MEDICARE, BC ==
--- NOTE | 2019-05-08 12:29 | RAD ---
Chest one view HISTORY: Fall. Chest pain. COMPARISON: 03/04/2019. FINDINGS: Cardiac silhouette is magnified by projection. Pulmonary vasculature are accentuated by sha llow inspiration. Similar in appearance to the previous exam. Calcified granulomata are consistent with healed granulomatous disease. No lobar consolidation or evidence of pneumothorax. IMPRESSION: No active cardiopulmonary abnormalities are demonstrated.
--- NOTE | 2019-05-08 12:32 | RAD ---
LEFT ANKLE 2 VIEWS: HISTORY: Fall with ankle pain. FINDINGS: Calcaneal spurs are present. There are some arthritic changes of the ankle joint. There are no sign s of fracture or dislocation. IMPRESSION: No evidence of fracture. POS: [facility]
--- NOTE | 2019-05-08 12:32 | RAD ---
Right ankle 2 views HISTORY: Fall. Ankle injury. FINDINGS: The 2 submitted views are in somewhat oblique positioning. Patient was unable to tolerate b jonn positioning or additional views. Cortical remodeling of the distal tibia has the appearance of an old injury. No acute fracture or dis location are apparent. There are degenerative changes of the hindfoot and mild degenerative changes of the ankle. IMPRESSION: Probable old healed distal tibial fracture. No displaced fracture is apparent, although p atient was unable to position well for optimal imaging.
--- NOTE | 2019-05-08 12:34 | CT ---
CT head noncontrast HISTORY: Fall. Head injury. COMPARISON: 03/04/2019. FINDINGS: There is no evidence of acute intracranial hemorrhage or infarct. Left frontal encephalomal acia and prominent chronic ischemic small vessel disease are similar in appearance to the previous exam. Mild diffuse atrophy. There is no mass effect or shift of midline structures. Visualized parana melchor sinuses remain well aerated. IMPRESSION: Chronic-type findings are stable. No acute intracranial abnormalities are demonstrated.
--- NOTE | 2019-05-08 12:37 | CT ---
CT cervical spine noncontrast HISTORY: Fall. Neck injury. FINDINGS: Vertebral body heights and alignment are maintained. Moderate osteophytosis. Osseous stenos is most pronounced at the left C3-4 neural foramen. Cervicothoracic junction is intact. No acute fracture or dislocation. IMPRESSION: Degenerative changes. No acute osseous abnormalities are demonstrated.
[2019-05-08 12:48] LABS: #Basophils 0.1 thou/uL (0.0-0.2); #Lymphocytes 1.6 thou/uL (1.20-3.40); #Monocytes 0.7 thou/uL (0.11-0.59); #Neutrophils 15.2 thou/uL (1.40-6.50); %Basophils 0.3 % (0.0-1.0); %Eosinophils 0.3 % (0.0-10.0); %Lymphocytes 9.1 % (21.0-51.0); %Monocytes 3.9 % (0.0-10.0); %Neutrophils 86.5 % (42.0-75.0); Hemoglobin 13.9 g/dL (14.0-18.0); Mean Corpuscular HGB CONC 34.3 g/dL (32.0-36.0); Mean Corpuscular Hemoglobin 32.1 pg (27.0-31.0); Mean Corpuscular Volume 93.6 fL (78.0-98.0); Mean Platelet Volume 6.8 fL (7.4-10.4); Platelet Count 325 thou/uL (130-400); RBC Distribution Width 12.1 % (11.5-14.5); Red Blood Cell (RBC) Count 4.34 mill/uL (4.70-6.10); White Blood Cell (WBC) Count 17.5 thou/uL (4.8-10.8)
[2019-05-08 13:17] LABS: ALT (SGPT) 23 U/L (8-55); AST (SGOT) 22 U/L (5-34); Albumin 4.1 g/dL (3.4-4.8); Alkaline Phosphatase 109 U/L (40-150); Anion Gap 15 mmol/L (10-20); BUN (Urea Nitrogen) 20 mg/dL (8.4-25.7); Bilirubin, Total 0.3 mg/dL (0.2-1.2); CK (CPK) 262 U/L (30-200); Calc. Creatinine Clearance 0 mL/min (70-130); Calcium 10.2 mg/dL (7.8-10.44); Carbon Dioxide 25 mmol/L (23-31); Chloride 103 mmol/L (98-107); Estimated GFR-MDRD Greater than 90; Globulin 3.6 g/dL (2.4-3.5); Glucose 129 mg/dL (80-115); Magnesium 1.9 mg/dL (1.6-2.6); Potassium 3.7 mmol/L (3.5-5.1); Protein, Total 7.7 g/dL (5.8-8.1); Sodium 139 mmol/L (136-145)
[2019-05-08 14:38] LABS: Bilirubin Moderate (Negative); Blood, Urine Large (Negative); Clarity TURBID (Clear); Glucose, Urine (Dipstick) Negative (Negative); Leukocyte Moderate (Negative); Nitrite Negative (Negative); Protein, Urine (Dipstick) 100 mg/dL (Neg-Trace)
[2019-05-08 14:39] LABS: Squamous Epithelial 0-3 HPF (0-3)
[2019-05-08 14:45] LABS: Pathc Cast-AUWi Flag 2.51 (0-2.49); Yeast-AUWi Flag 594.4 (0-25.0)
[2019-05-08 15:01] LABS: RBC/HPF GREATER THAN 50-TNTC HPF (0-3); Renal Epithelial 0-3 HPF (0-3); Transitional Epithelial 0-3 HPF (0-3)
[2019-05-08 15:02] LABS: Bacteria/HPF 1+ HPF (None Seen); Hyaline Casts/LPF NONE SEEN LPF (0-3 Hyaline)
[2019-05-08] MEDS ORDERED: Acetaminophen 500 MG TAB ONE (15:50)
[2019-05-08] MEDS ORDERED: cefTRIAXone\\ROCEPHIN 1 GM VIAL ONE (15:50)
--- NOTE | 2019-05-08 16:45 | CT ---
CT ABDOMEN AND PELVIS WITHOUT CONTRAST: HISTORY:Fall, abdominal pain COMPARISON: 01/26/2013 DISCLAIMER: Absence of oral and IV contrast reduces the sensitivity of the exam particularly for the evaluation of solid organs and bowel. Possibility of solid organ injury cannot be completely excluded on this exam. FINDINGS: There are mild dependent changes at the lung bases. No free air or free fluid is seen in the abdomen or pelvis. Gallstones are seen. Bilateral renal calculi are seen. There is a 1 cm calculus in the left renal pelvis without significa nt hydroureteronephrosis. No calculi are seen in the ureters or the urinary bladder. There is fecal material in the colon. The prostate is enlarged. There are vascular calcifications without evidence o f aneurysmal dilatation of the abdominal aorta. Degenerative changes are seen in the spine.
[2019-05-08 18:15] LABS: Troponin I 0.016 ng/mL (< 0.028)
[2019-05-08 20:34] LABS: Troponin I Less than 0.010 ng/mL (< 0.028)
[2019-05-09] MEDS ORDERED: Acetaminophen 325 MG TAB PO PRN (00:51)
[2019-05-09] MEDS ORDERED: Bisacodyl 10 MG SUPP PR PRN (00:51)
[2019-05-09] MEDS ORDERED: Dextrose 50% Abboject 50 ML SYRINGE SLOW IVP PRN (00:51)
[2019-05-09] MEDS ORDERED: HumaLOG 300 UNITS/3 ML VIAL SC PRN (00:51)
[2019-05-09] MEDS ORDERED: Dextrose 5% in Water 1,000 ML IV PRN (00:51)
[2019-05-09] MEDS ORDERED: Guaifenesin DM 100-10/5 ML UDCUP PO PRN (00:51)
[2019-05-09] MEDS: Sodium Chloride 0.9% 1,000 ML IV SCH ×2 (01:13→20:40)
--- NOTE | 2019-05-09 04:34 | HP ---
REASON FOR ADMISSION: Recurrent falls, sepsis, and UTI. HISTORY OF PRESENTING ILLNESS: The patient was apparently brought by EMS after they found him on the kitchen floor. The patient says that he did not really fall, but he could not get out of bed. He has been having neck pain from yesterday. He has known history of Parkinson disease and has had multiple falls in the past. He has no complaints of cough or expectoration. The patient has no complaints of urinary frequency or urgency. The patient appears to be a poor historian. He states he saw Dr. Herrera only once for diagnosis of Parkinson in 2016. He has severe tremor in both upper extremities. The patient cannot even turn in bed from side to side. He says there is a caregiver Saturday to Saturday, but not on the weekends. On a good day, he uses a walker to ambulate. PAST MEDICAL AND SURGICAL HISTORY: History of Parkinson disease, history of schizoaffective disorder, hypertension, diabetes mellitus type 2, GERD, dyslipidemia, history of nephrolithiasis, tonsillectomy, prior history of CVA, obesity, hypothyroidism, adenoidectomy, surgery for deviated nasal septum. PERSONAL HISTORY: He does not abuse alcohol or drugs. No history of smoking. He lives at home alone and has a caregiver Saturday to Saturday, but not on the weekends. The patient has no children and is . FAMILY HISTORY: Mother at the age of 93 years. She has had history of heart failure and coronary artery disease. Father at the age of 95. He has had history of coronary artery disease and hypertension. CURRENT MEDICATIONS: 1. Aspirin 81 mg p.o. daily. 2. Carbidopa levodopa 25/250 mg p.o. one tab 3 times daily. 3. Clomipramine 75 mg twice daily. 4. Colace 100 mg twice daily. 5. Hydrochlorothiazide 25 mg daily. 6. Levemir 77 units subcu twice daily. 7. Levothyroxine 50 mcg daily. 8. Losartan 100 mg p.o. daily. 9. Amitiza 24 mcg p.o. daily. 10. Metformin extended release 500 mg twice daily. 11. Olanzapine 5 mg p.o. at bedtime. 12. Oxcarbazepine 600 mg p.o. at bedtime. 13. Zoloft 100 mg p.o. daily. 14. Flomax 0.4 mg daily. 15. Venlafaxine extended release 150 mg daily. 16. Atorvastatin 20 mg p.o. at bedtime. 17. Verapamil extended release 180 mg p.o. daily. ALLERGIES: NO KNOWN DRUG ALLERGIES. REVIEW OF SYSTEMS: CONSTITUTIONAL: Negative for weight loss or gain, ability to conduct usual activities. SKIN: Negative for rash, itching. EYES: Negative for double vision, pain. ENT/MOUTH: Negative for nose bleeding, neck stiffness, pain, tenderness. CARDIOVASCULAR: Negative for palpitations, dyspnea on exertion, orthopnea. RESPIRATORY: Negative for shortness of breath, wheezing, cough, hemoptysis, fever or night sweats. GASTROINTESTINAL: Negative for poor appetite, abdominal pain, heartburn, nausea , vomiting, constipation, or diarrhea. GENITOURINARY: Negative for urgency, frequency, dysuria, nocturia. MUSCULOSKELETAL: Negative for pain, swelling. NEUROLOGIC/PSYCHIATRIC: Negative for anxiety, depression. ALLERGY/IMMUNOLOGIC: Negative for skin rash, bleeding tendency. Please use short and difficult for urgency, frequency, dysuria, nocturia. MUSCULOSKELETAL: Negative for pain, swelling. NEUROLOGIC/PSYCHIATRIC: Negative for anxiety, depression. ALLERGY/IMMUNOLOGIC: Negative for skin rash, bleeding tendency. PHYSICAL EXAMINATION: GENERAL: The patient is a 68-year-old male, who is currently not in any acute distress. VITAL SIGNS: Blood pressure 184/94, pulse 106 per minute, respiratory rate 26 per minute, temperature 97.9 degrees Fahrenheit, saturating 95% on room air. NECK: Supple. No elevated JVD. HEENT: Eyes; extraocular muscles intact. Pupils reacting to light. Oral cavity, mucous membranes are dry. No exudates or congestion. CARDIOVASCULAR SYSTEM: S1 and S2 heard, regular rhythm. RESPIRATORY SYSTEM: Air entry 1+ bilateral. No rales or rhonchi. ABDOMEN: Soft. Bowel sounds heard. No tenderness, rigidity, or guarding. EXTREMITIES: Mild peripheral edema. No calf tenderness. VASCULAR SYSTEM: Peripheral pulses 1+ bilateral. No ischemic ulcerations or gangrene. The patient has lacerations over the left lateral knee, likely from falls. CENTRAL NERVOUS SYSTEM: No gross focal deficits noted. The patient moves all four extremities. No localizing sign seen. PSYCHIATRIC SYSTEM: No obvious hallucinations or delusions. LABORATORY DATA: EKG done shows sinus tach at 101 beats per minute. There is incomplete RBBB with poor R-wave progression seen. There is nonspecific ST-T wave changes. Right ankle, two view x-ray done, old healed distal tibial fracture. No displaced fracture is seen. Right ankle, two view done shows old healed distal tibial fracture. No displaced fracture was seen. CT abdomen and pelvis without contrast done shows bilateral renal calculi. There is a 1-cm calculus in the left renal pelvis without significant hydroureteronephrosis. No calculus are seen in the ureters or the bladder. There is fecal material in the colon. Prostate is enlarged. Left ankle two view done showed no evidence of fracture. CT cervical spine done shows degenerative changes. No acute osseous abnormality. CT head noncontrast done shows old left frontal encephalomalacia. No acute infarct or bleed. Chest x-ray done shows no acute cardiopulmonary abnormalities. White count of 17, H and H 13 and 40, platelet count 325, with 86% neutrophils. Electrolytes stable. BUN 20, creatinine 0.8, serum glucose 129. Liver enzymes within normal limits. Albumin 4.1. BNP 29. Troponin I x3 is negative. TSH 0.98. UA shows moderate leukocyte esterase, 11-20 wbc's, 1+ bacteria. CLINICAL IMPRESSION AND PLAN: Patient will be admitted to telemetry for sepsis, recurrent falls, and urinary tract infection. The patient has had a Hathaway placed likely in the ER. We will obtain urine and blood cultures. He will be on cefepime and Levaquin until cultures come back. Normal saline at 50 mL per hour. We will reduce his Lantus to 15 units subcu twice daily along with metformin for now. We will continue his Flomax, venlafaxine, verapamil, Zoloft, Trileptal, Amitiza, Cozaar, Synthroid, levodopa, Lipitor, and aspirin as before. The patient has history of schizoaffective disorder and Parkinson disease as well. The treatment of both makes it difficult due to combination. He has had multiple falls in the past. He has seen a neurologist only once 3 years back. In view of recurrent falls and multiple prior hospitalizations, we will request a consultation with Neurology to help with his medications. We will also obtain accurate home medications from his pharmacy. He is on two different antipsychotic medications and with history of Parkinson, we would want to confirm the dosages and medications. If the patient remains stable, he can be transferred to medical floor. CODE STATUS: Full. Power of real estate attorney will be his sister, who lives in [place], [place]. Her name is Merle Kim. Please note, the patient says that he has lived in multiple nursing homes and prefers going home for discharge planning. I have told him that he is not even able to move and position himself on the bed and needs assistance and it is unlikely that he will go home with a safe discharge plan as the patient has no close family members who can assist him. Also, his current caregiver does not come on the weekends. Job ID: [id number] MTDD
[2019-05-09 05:23] LABS: #Basophils 0.1 thou/uL (0.0-0.2); #Eosinphils 0.2 thou/uL (0.0-0.7); #Monocytes 0.6 thou/uL (0.11-0.59); #Neutrophils 8.1 thou/uL (1.40-6.50); %Basophils 0.6 % (0.0-1.0); %Eosinophils 1.4 % (0.0-10.0); %Lymphocytes 25.4 % (21.0-51.0); %Neutrophils 67.5 % (42.0-75.0); Hemoglobin 12.8 g/dL (14.0-18.0); Mean Corpuscular HGB CONC 34.6 g/dL (32.0-36.0); Mean Corpuscular Hemoglobin 33.1 pg (27.0-31.0); Mean Corpuscular Volume 95.6 fL (78.0-98.0); Mean Platelet Volume 7.2 fL (7.4-10.4); Platelet Count 308 thou/uL (130-400); RBC Distribution Width 12.2 % (11.5-14.5); Red Blood Cell (RBC) Count 3.86 mill/uL (4.70-6.10); White Blood Cell (WBC) Count 11.9 thou/uL (4.8-10.8)
[2019-05-09 05:41] LABS: Anion Gap 13 mmol/L (10-20); BUN (Urea Nitrogen) 16 mg/dL (8.4-25.7); Calc. Creatinine Clearance 139 mL/min (70-130); Calcium 9.4 mg/dL (7.8-10.44); Carbon Dioxide 27 mmol/L (23-31); Chloride 102 mmol/L (98-107); Estimated GFR-MDRD Greater than 90; Glucose 168 mg/dL (80-115); Potassium 3.5 mmol/L (3.5-5.1); Sodium 138 mmol/L (136-145)
[2019-05-09] MEDS: Levothyroxine Sodium 50 MCG TAB PO SCH (06:02)
[2019-05-09] MEDS ORDERED: PRE FILLED SC SCH (09:00)
[2019-05-09] MEDS ORDERED: INSULIN GLARGINE SC SCH (09:00)
[2019-05-09] MEDS ORDERED: INSULIN DETEMIR SC SCH (09:00)
[2019-05-09] MEDS: Lubiprostone 24 MCG CAP PO SCH (09:53)
[2019-05-09] MEDS: metFORMIN XR 500 MG TAB PO SCH ×2 (09:53→17:39)
[2019-05-09] MEDS: Losartan 25 MG TAB PO SCH (09:53)
[2019-05-09] MEDS: Venlafaxine HCl XR 150 MG CAP PO SCH (09:54)
[2019-05-09] MEDS: Famotidine 20 MG TAB PO SCH ×2 (09:54→20:46)
[2019-05-09] MEDS: Carbidopa/Levodopa 25-250 mg Tablet PO SCH ×3 (09:54→20:46)
[2019-05-09] MEDS: Senokot S 8.6-50 MG TAB PO SCH ×2 (09:54→20:46)
[2019-05-09] MEDS: Aspirin 81 mg Enteric Coated Tablet PO SCH (09:54)
[2019-05-09] MEDS: Enoxaparin Sodium 40 MG/0.4 ML SYRINGE SC SCH (09:55)
[2019-05-09] MEDS: Tamsulosin HCl 0.4 MG CAP PO SCH (09:55)
[2019-05-09] MEDS: Docusate 100 MG CAP PO SCH ×2 (09:55→20:46)
[2019-05-09] MEDS: Cefepime 1 GM in Sodium Chloride 0.9% 100 ML IVPB SCH ×2 (09:55→20:40)
[2019-05-09] MEDS: Insulin Glargine 15 UNITS in Pre-Filled Syringe 1 EACH SC SCH ×2 (09:56→22:45)
[2019-05-09] MEDS: HumaLOG 300 UNITS/3 ML VIAL SC PRN ×2 (13:37→17:39)
[2019-05-09] MEDS: OXcarbazepine 300 MG TAB PO SCH (20:46)
[2019-05-09] MEDS ORDERED: Atorvastatin Calcium 20 MG TAB PO SCH (21:00)
--- NOTE | 2019-05-10 00:35 | CON ---
DATE OF TELEMEDICINE CONSULTATION WITH DEJA CLAY: 05/09/2019 CHIEF COMPLAINT: Parkinson's disease. I was consulted to adjust his oral medications. HISTORY OF PRESENT ILLNESS: The patient reports he has had Parkinson's disease since 2016. He did see Dr. Mahoney in the past. He also used to see Dr. Spangler in [place] for his psychiatric issues and his brother used to drive him. He quit going to [place] recently. At home, he can get around using a walker and has a caregiver from Saturday to Saturday. He has falls and balance problems due to Parkinson's disease. He has no hallucinations or confusion. He reports he is stable with his Parkinson's except for tremor and balance problems. I understand that the patient was admitted and he was found on the kitchen floor and he could not get out of bed. He is known to have multiple falls. PAST MEDICAL HISTORY: Parkinson's disease, schizoaffective disorder, hypertension, diabetes type 2, gastroesophageal reflux disease, dyslipidemia, history of kidney stone treatment, hypothyroidism. PAST SURGICAL HISTORY: Tonsillectomy and adenoidectomy, surgery for deviated nasal septum. SOCIAL HISTORY: Does not smoke or drink. He lives alone at home. He has a caregiver, Saturday to Saturday and he in . FAMILY HISTORY: The patient's father is 95. He re- and has a who takes care of him. The patient's father has had coronary artery disease and hypertension. Mother at 93 and she had heart failure. MEDICATIONS: At home; 1. Aspirin 81 mg per day. 2. Carbidopa levodopa 25/250 three times daily. 3. Clomipramine 75 mg b.i.d. 4. Colace 100 mg twice daily. 5. Hydrochlorothiazide 25 mg per day. 6. Levemir 77 units twice daily. 7. Levothyroxine 50 mcg per day. 8. Losartan 100 mg per day. 9. Amitiza 24 mcg per day. 10. Metformin 500 mg twice daily. 11. Olanzapine 5 mg at bedtime. 12. Oxcarbazepine 600 mg at bedtime. 13. Zoloft 100 mg per day. 14. Flomax 0.4 mg per day. 15. Venlafaxine 150 mg per day. 16. Atorvastatin 20 mg at bedtime. 17. Verapamil 180 mg per day. ALLERGIES: NO KNOWN DRUG ALLERGIES. REVIEW OF SYSTEMS: PULMONARY: Negative for cough or shortness of breath. GASTROINTESTINAL: Negative for any gastrointestinal issues. HEENT: Negative for any sinusitis or nasal problems. OPHTHALMOLOGIC: Negative for visual disturbance. DERMATOLOGIC: Negative for rash. PSYCHIATRIC: Positive for schizoaffective disorder. NEUROLOGIC: Positive for tremor and Parkinson's disease and balance problems. LABORATORY WORKUP: White count 11.9, hemoglobin 12.8, hematocrit 36.9, platelets 308. Chemistry; sodium 138, potassium 3.5, chloride 102, bicarb 27, BUN 16, creatinine 0.75, glucose 168. Urinalysis, positive for moderate leukocyte esterase and bacteria 1+. PHYSICAL EXAMINATION: GENERAL APPEARANCE: The patient has tremor and is sitting in bed. VITAL SIGNS: Temperature is 98.4, blood pressure 147/72, pulse 83, respiratory rate 16, O2 sats 97%. CHEST: Clear vesicular breathing. CARDIOVASCULAR: S1, S2 heard. No murmurs. ABDOMEN: Soft. NEUROLOGICAL EXAMINATION: Higher intellectual functions. Normal orientation to time, place, and person and appropriate conversation. Cranial nerves 2-12, normal extraocular movements. No facial asymmetry noted. Tongue midline. Normal hearing bilaterally. Normal elevation of palate. Motor bulk normal. Tone was increased with rigidity bilaterally in upper and lower extremities and neck. Strength is generally declined with strength of 4/5 in upper and lower extremities in iliopsoas, hamstrings, quadriceps, ankle dorsiflexion, plantar flexion, deltoid, biceps, triceps, wrist extension and flexion, finger extension and flexion bilaterally. Deep tendon reflexes 2+ throughout in upper and lower extremities. Cerebellar, normal [id number] and [id number]. Gait not tested. Involuntary movements. The patient has hypomimia, hypophonia, and generalized body bradykinesia and has a rest tremor of 2+ bilaterally in upper extremities. Gait not tested. IMPRESSION: The patient is a 68-year-old man who was admitted after being found on the floor likely secondary to a fall. The patient has had Parkinson's disease since 2016. He is also on various psychiatric medications including SSRIs and olanzapine. The patient has been under the care of a psychiatrist, but not been under care of neurologist prompting this consultation. The examination shows hypomimia, bradykinesia, rigidity, as well as tremor and diagnosis is most consistent with Parkinson's disease deterioration. At this time, primary concern would be his gait and balance dysfunction. RECOMMENDATIONS: Please change his carbidopa-levodopa to 4 times daily and give him dosages at 7:00 a.m., 11:00 a.m., 3:00 p.m., and 7:00 p.m. and a strict time based schedule. Please add Sinemet 50/200 CR at bedtime. Consult [facility] and request inpatient rehab prior to discharge home to prevent future falls. Call me if you have any further questions. Job ID: [id number] [facility]MA[facility]
--- NOTE | 2019-05-10 01:17 | CON ---
DATE OF CONSULTATION: 05/09/2019 REASON FOR CONSULTATION: Apparent urosepsis, hematuria, and 2 right-sided stones, one with partial obstruction. PROBLEM LIST: 1. Obstruction of right ureteropelvic junction (UPJ) due to stone, N20.1 2. Right kidney stone, N20.0 3. Urinary retention, R33.9 4. Parkinson disease (HCC), G20 5. 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 Kavon is disabled and lives at home. He has a health aide who helps him every day of the week except for Saturday and Saturday. He presents with signs of urosepsis and underwent CT scanning which demonstrates the presence of a 1 cm diameter ovoid renal pelvic stone on the right side. The patient also has a 5 mm calyceal stone on the same side. There is a very small punctate left-sided stone which is nonobstructive. The patient was admitted with elevated white count and is currently on Levaquin and Zosyn. He has been making good progress with afebrile status and declining white blood cell count. Mr. Arevalo is largely insensitive to flank pain complaints. He did have complaints with difficulty emptying his bladder. PAST MEDICAL HISTORY: 1. Parkinson disease. 2. Schizoaffective disorder. 3. Hypertension. 4. Diabetes mellitus type 2. 5. Gastroesophageal reflux disease. 6. Hyperlipidemia. 7. Past nephrolithiasis and current nephrolithiasis. 8. Status post tonsillectomy. 9. History of CVA. 10. Obesity. 11. Hypothyroidism. 12. Past deviated septum surgery. SOCIAL HISTORY: The patient does not abuse alcohol or drugs. Does not have a history of smoking. He lives at home alone and does have a caregiver Saturday through Saturday, but on the weekends. The patient has no children and is . FAMILY MEDICAL HISTORY: The patient's mother at advanced age of 93 with heart failure and coronary artery disease. The patient's father at age 95, also with a history of heart disease. OUTPATIENT MEDICATION LIST: 1. Aspirin 81 mg per day. 2. Carbidopa levodopa 25/250 mg p.o. three times daily. 3. Clomipramine 75 mg twice daily. 4. Colace 100 mg twice daily. 5. Hydrochlorothiazide 20 mg per day. 6. Levemir 77 units subcu twice daily. 7. Levothyroxine 50 mcg p.o. daily. 8. Losartan 100 mg daily. 9. Amitiza 24 mcg p.o. daily. 10. Metformin extended release 500 mg twice daily. 11. Olanzapine 5 mg p.o. at bedtime. 12. Oxcarbazepine 600 mg p.o. at bedtime. 13. Zoloft 100 mg per day. 14. Flomax 0.4 mg p.o. daily. 15. Venlafaxine extended release 150 mg per day. 16. Atorvastatin 20 mg p.o. at bedtime. 17. Verapamil extended release 180 mg p.o. daily. ALLERGIES: NO KNOWN DRUG ALLERGIES. REVIEW OF SYSTEMS: HEAD, EYES, EARS, NOSE, AND THROAT: Negative. PULMONARY: Negative for cough. CARDIAC: No current complaints of chest pain. GASTROINTESTINAL: No complaints. GENITOURINARY: The patient did have some difficulty emptying his bladder. He has many medical reasons for that. He is on Flomax at home as well as Avodart. The patient is on anticoagulation during this hospitalization with Eliquis. PHYSICAL EXAMINATION: GENERAL: This is a pleasant, heavyset white male, in no apparent distress. VITAL SIGNS: Temperature is 97.0 with no fever today. Pulse 83, respirations 16, blood pressure is 134/65. He has normal room air saturation at 97%. HEAD, EYES, EARS, NOSE AND THROAT: Extraocular movements are intact. Sclerae anicteric. Oropharynx is clear. NECK: Supple. LUNGS: Clear to auscultation bilaterally. CARDIAC: There is an irregularly irregular rhythm. ABDOMEN: Soft, obese, and nontender. BACK: No costovertebral angle tenderness on either side. Phallus is without external lesion. An indwelling Hathaway catheter is in place and is draining cloudy urine, probably with a degree of red blood cells and possibly pyuria. RECTAL: Digital rectal examination is performed, finds the patient with some probable prostate regrowth. The patient relates that he may have had TURP [place] [address] Michael. LABORATORY STUDIES: The patient's admission white count was 17,500 down to 11, 900 today. Current hemoglobin is 12.8 with hematocrit of 36.9. There is resolution of the patient's previous left shift from 86.5% down to 67.5%. ANC has improved from 15.2 to 8.1. Serum chemistry shows a blood urea nitrogen today of 16 with creatinine 0.75. EGFR is greater than 90. Serum glucose is 171 on the most recent check. Urinalysis at admission showed a urine specific gravity of 1.022, a large amount of blood and moderate leukocyte esterase with 10-20 white cells seen per high-power field, too numerous to count greater than 50 red blood cells per high-power field. Urine bacteria 1+. Microbiology; at 12 hours, there is no urine culture growth for the urine obtained by straight catheter. The patient initially apparently had an in-and-out catheterization performed and subsequently attempted to void and was only able to produce a small amount of urine. A bladder scan showed a residual 500 mL in the patient's bladder and a Hathaway catheter was subsequently placed with return of about 500 mL of partially cloudy urine. ASSESSMENT: 1. Apparent urinary tract infection. I believe this mostly involves the lower tract, but I am not certain and cannot exclude obstructive infection above the patient's stone. I reviewed the radiologic studies and the patient has stones on the right side. These are 10 mm at the UPJ on the right and a 5 mm calyceal stone. Based on the presentation, when his acute sepsis symptoms have resolved, I think would be appropriate to take him to the operating room for stenting. He probably will end up needing an intervention for stones in the near future. Since he has been on anticoagulation, he probably would need to undergo ureteroscopic disposition of the stones. 2. Outlet obstruction, likely secondary to prostate origin. Based on physical examination, I am recommending maximal medical therapy with Flomax, Avodart, and appropriate antibiotic coverage. We will wait until his urine culture is available before deciding on that. With respect to the stones, we will plan on proceeding with cystoscopy and right-sided stent placement tomorrow if he makes adequate progress. TIME SPENT: Over 70 minutes of initial evaluation and assessment time was spent in the care of this patient, over of which was in face to face evaluation, or in coordination of care, or in communication with the patient's family regarding care, exclusive of any procedures performed, [id number]. Job ID: [id number] [facility]
[2019-05-10] MEDS: Levothyroxine Sodium 50 MCG TAB PO SCH (05:56)
[2019-05-10] MEDS ORDERED: Loperamide HCl 2 MG CAP PO PRN (07:31)
[2019-05-10] MEDS ORDERED: Artificial Tears 18 DROP/0.9 ML EA EYE PRN (07:31)
[2019-05-10] MEDS ORDERED: Diabetic Tussin 200 MG/10 ML UDCUP PO PRN (07:31)
[2019-05-10] MEDS ORDERED: Loratadine 10 MG TAB PO PRN (07:31)
[2019-05-10] MEDS ORDERED: Ondansetron PF 4 MG/2 ML Vial IVP PRN (07:31)
[2019-05-10] MEDS ORDERED: Ondansetron ODT 4 MG TAB PO PRN (07:31)
[2019-05-10] MEDS ORDERED: Cepastat Lozenges 1 LOZ PO PRN (07:31)
[2019-05-10] MEDS ORDERED: HYDROcodone/Acetaminophen 5/325 mg Tablet PO PRN (07:31)
[2019-05-10] MEDS ORDERED: hydrALAZINE 20 MG/ML VIAL SLOW IVP PRN (07:31)
[2019-05-10] MEDS ORDERED: Sodium Chloride 0.65% Nasal 44 ML BOT EA NARE PRN (07:31)
[2019-05-10] MEDS ORDERED: Fentanyl 100 MCG/2 ML VIAL ONE (07:57)
[2019-05-10] MEDS ORDERED: Levofloxacin 500 mg/D5W 100 ml Premix Bag ONE (08:46)
[2019-05-10] MEDS ORDERED: Iothalamate Meglumine 60% 50 ML VIAL FS ONE (08:51)
[2019-05-10] MEDS ORDERED: Promethazine HCl 25 MG/ML VIAL SLOW IVP PRN (10:34)
[2019-05-10] MEDS ORDERED: Ondansetron HCl/PF 4 MG/2 ML Vial IVP PRN (10:34)
[2019-05-10] MEDS ORDERED: Promethazine HCl 25 MG/ML VIAL IM PRN (10:34)
--- NOTE | 2019-05-10 10:36 | RAD ---
XR IVP Retrograde HISTORY: Stent placement. Renal calculi. COMPARISON: CT examination of 05/08/2019. FINDINGS: A total 7 films presented for interpretation. Contrast injected into the left collecting sy stem shows a nondilated collecting system without definitive filling defects. On the right side multiple right renal calculi are demonstrated largest in the right renal pelvis. A stent is placed on the right side. IMPRESSION: Right ureteral stent placement.
[2019-05-10] MEDS: Lubiprostone 24 MCG CAP PO SCH (11:33)
--- NOTE | 2019-05-10 11:33 | PDOC.PN ---
- Subjective Encounter Start Date: 05/10/19 Encounter Start Time: 07:20 -: old records requested/rev Patient seen and examined. No new complaints. No overnight events - Objective Resuscitation Status - Order Detail: 05/09/19 00:44 Resuscitation Status Routine Resuscitation Status: FULL: Full Resuscitation MAR Reviewed: Yes Vital Signs & Weight: Vital Signs (12 hours) Temp Pulse Resp BP Pulse Ox 05/10/19 11:18 96.8 F L 85 18 187/83 H 05/10/19 08:00 97.4 F L 77 16 125/64 96 05/10/19 04:00 97.7 F 82 14 131/61 94 L Weight Admit Weight 223 lb 3.2 oz Weight 221 lb 14.4 oz I&O: 05/09/19 05/10/19 05/11/19 06:59 06:59 06:59 Intake Total 320 2310 Output Total 650 1150 40 Balance -330 1160 -40 Result Diagrams: 05/09/19 04:30 05/09/19 04:30 Additional Labs: Accuchecks 05/10/19 05/10/19 05/09/19 11:25 05:25 21:00 POC Glucose 149 H 155 H 176 H 05/09/19 16:28 POC Glucose 171 H Radiology Reviewed by me: Yes EKG Reviewed by me: Yes Phys Exam - Physical Examination Constitutional: NAD HEENT: moist MMs, sclera anicteric Neck: no JVD, supple Respiratory: no wheezing, no rales, no rhonchi Cardiovascular: RRR, no significant murmur, no rub Gastrointestinal: soft, non-tender, no distention, positive bowel sounds Musculoskeletal: no edema, pulses present Neurological: non-focal, normal sensation PARKINSON TREMOR+ Lymphatic: no nodes Psychiatric: normal affect, A&O x 3 Skin: no rash, normal turgor Dx/Plan (1) Sepsis Code(s): A41.9 - SEPSIS, UNSPECIFIED ORGANISM Status: Acute Comment: (2) UTI (urinary tract infection) Status: Acute (3) Anxiety and depression Code(s): F41.9 - ANXIETY DISORDER, UNSPECIFIED; F32.9 - MAJOR DEPRESSIVE DISORDER, SINGLE EPISODE, UNSPECIFIED Status: Chronic (4) BPH (benign prostatic hyperplasia) Code(s): N40.0 - BENIGN PROSTATIC HYPERPLASIA WITHOUT LOWER URINRY TRACT SYMP Status: Chronic (5) DM2 (diabetes mellitus, type 2) Status: Chronic Comment: (6) HTN (hypertension) Code(s): I10 - ESSENTIAL (PRIMARY) HYPERTENSION Status: Chronic Qualifiers: Comment: (7) Nephrolithiasis Status: Chronic (8) Obesity (BMI 30-39.9) Code(s): E66.9 - OBESITY, UNSPECIFIED Status: Chronic (9) Parkinson disease Code(s): G20 - PARKINSON'S DISEASE Status: Chronic Comment: (10) Schizoaffective disorder Code(s): F25.9 - SCHIZOAFFECTIVE DISORDER, UNSPECIFIED Status: Chronic - Plan cont current plan of care, continue antibiotics * today plan for cystoscopy and stent placement * outpt basis treatment for nephrolithiasis * follow on culture * currently on cefepime and Levaquin * medication reviewed as below * symptomatic treatment. * hold lovenox for hematuria Review of Systems - Medications/Allergies Allergies/Adverse Reactions: Allergies Allergy/AdvReac Type Severity Reaction Status Date / Time No Known Drug Allergies Allergy Unknown Verified 03/05/19 02:00 Medications: Current Medications Acetaminophen (Tylenol) 650 mg PO Q4H PRN PRN Reason: Headache/Fever/Mild Pain (1-3) Hydrocodone Bitart/Acetaminophen (Una 5/325) 1 tab PO Q4H PRN PRN Reason: Moderate Pain (4-6) Artificial Tears (Tears Naturale) 2 drop EA EYE PRN PRN PRN Reason: Dry Eyes Aspirin (Ecotrin) 81 mg PO DAILY [facility] Last Admin: 05/09/19 09:54 Dose: 81 mg Bisacodyl (Dulcolax) 10 mg AR DAILYPRN PRN PRN Reason: Constipation Carbidopa/Levodopa (Sinemet 25-250) 1 tab PO TID [facility] Last Admin: 05/09/19 20:46 Dose: 1 tab Dextrose/Water (Dextrose 50%) 25 gm SLOW IVP PRN PRN PRN Reason: Hypoglycemia Docusate Sodium (Colace) 100 mg PO BID [facility] Last Admin: 05/09/19 20:46 Dose: 100 mg Enoxaparin Sodium (Lovenox) 40 mg SC 0900 [facility] Last Admin: 05/09/19 09:55 Dose: 40 mg Famotidine (Pepcid) 20 mg PO BID [facility] Last Admin: 05/09/19 20:46 Dose: 20 mg Glucagon (Glucagon) 1 mg IM PRN PRN PRN Reason: Hypoglycemia Guaifenesin (Robitussin Sf) 200 mg PO Q4H PRN PRN Reason: Cough Guaifenesin/Dextromethorphan (Robitussin Dm) 15 ml PO Q4H PRN PRN Reason: Cough Hydralazine HCl (Apresoline) 10 mg SLOW IVP Q4H PRN PRN Reason: SBP > 180 and HR < 70 Dextrose/Water (D5w) 1,000 mls @ 0 mls/hr IV .Q0M PRN PRN Reason: Hypoglycemia Sodium Chloride (Normal Saline 0.9%) 1,000 mls @ 50 mls/hr IV .Q20H [facility] Stop: 05/10/19 16:50 Last Admin: 05/09/19 20:40 Dose: 1,000 mls Cefepime HCl 1 gm/ Sodium (Chloride) 100 mls @ 200 mls/hr IVPB Q12HR [facility] Last Admin: 05/09/19 20:40 Dose: 100 mls Insulin Glargine 15 units/ (Miscellaneous Medication) 0.15 mls @ 0 mls/hr SC BID [facility] Last Admin: 05/09/19 22:45 Dose: 0.15 mls Insulin Human Lispro (Humalog) 0 units SC .MODERATE SLIDING SC PRN PRN Reason: Moderate Correctional Scale Last Admin: 05/09/19 17:39 Dose: 2 unit Insulin Human Lispro (Humalog) 0 units SC .BEDTIME SLIDING SC PRN PRN Reason: Bedtime Correctional Scale Levothyroxine Sodium (Synthroid) 50 mcg PO 0600 [facility] Last Admin: 05/10/19 05:56 Dose: 50 mcg Loratadine (Claritin) 10 mg PO DAILYPRN PRN PRN Reason: Sinus Symptoms Losartan Potassium (Cozaar) 100 mg PO DAILY [facility] Last Admin: 05/09/19 09:53 Dose: 100 mg Lubiprostone (Amitiza) 24 mcg PO DAILY [facility] Last Admin: 05/09/19 09:53 Dose: 24 mcg Metformin HCl (Glucophage Xr) 500 mg PO BID[facility] Last Admin: 05/09/19 17:39 Dose: 500 mg Oxcarbazepine (Trileptal) 600 mg PO [facility] Last Admin: 05/09/19 20:46 Dose: 600 mg Promethazine HCl (Pacu-Phenergan) 6.25 mg SLOW IVP ONE PRN PRN Reason: Nausea/Vomiting Stop: 05/10/19 13:35 Promethazine HCl (Pacu-Phenergan) 6.25 mg IM ONE PRN PRN Reason: Nausea/Vomiting Stop: 05/10/19 13:35 Saccharomyces Boulardii (Florastor) 250 mg PO DAILY [facility] Senna/Docusate Sodium (Senokot S) 2 tab PO BID [facility] Last Admin: 05/09/19 20:46 Dose: 2 tab Sertraline HCl (Zoloft) 100 mg PO DAILY [facility] Last Admin: 05/09/19 09:53 Dose: 100 mg Sodium Chloride (Flush - Normal Saline) 10 ml IVF Q12HR [facility] Last Admin: 05/09/19 20:47 Dose: Not Given Sodium Chloride (Flush - Normal Saline) 10 ml IVF PRN PRN PRN Reason: Saline Flush Sodium Chloride (Estill Nasal [place] 0.65%) 0 ml EA NARE QIDPRN PRN PRN Reason: Nasal Congestion Tamsulosin HCl (Flomax) 0.4 mg PO DAILY [facility] Last Admin: 05/09/19 09:55 Dose: 0.4 mg Throat Lozenges (Cepastat Lozenges) 1 pedro luis PO Q2H PRN PRN Reason: Sore Throat Venlafaxine HCl (Effexor Xr) 150 mg PO DAILY [facility] Last Admin: 05/09/19 09:54 Dose: 150 mg Verapamil HCl (Calan Er) 180 mg PO DAILY [facility] Last Admin: 05/09/19 10:20 Dose: 180 mg
[2019-05-10] MEDS: Losartan 25 MG TAB PO SCH (11:34)
[2019-05-10] MEDS: Venlafaxine HCl XR 150 MG CAP PO SCH (11:35)
[2019-05-10] MEDS: Saccharomyces boulardii 250 MG CAP PO SCH (11:35)
[2019-05-10] MEDS: Aspirin 81 mg Enteric Coated Tablet PO SCH (11:35)
[2019-05-10] MEDS ORDERED: Ondansetron PF 4 MG/2 ML Vial ONE (11:36)
[2019-05-10] MEDS: metFORMIN XR 500 MG TAB PO SCH ×2 (11:36→16:16)
[2019-05-10] MEDS ORDERED: Lidocaine 1% PF 5 ML VIAL ONE (11:36)
[2019-05-10] MEDS ORDERED: PROPOFOL 200 MG/20 ML VIAL ONE (11:36)
[2019-05-10] MEDS: Carbidopa/Levodopa 25-250 mg Tablet PO SCH ×3 (11:36→21:14)
[2019-05-10] MEDS: Docusate 100 MG CAP PO SCH ×2 (11:36→21:14)
[2019-05-10] MEDS: Famotidine 20 MG TAB PO SCH ×2 (11:36→21:15)
[2019-05-10] MEDS: Tamsulosin HCl 0.4 MG CAP PO SCH (11:36)
[2019-05-10] MEDS: Cefepime 1 GM in Sodium Chloride 0.9% 100 ML IVPB SCH ×2 (11:36→20:58)
[2019-05-10] MEDS: Senokot S 8.6-50 MG TAB PO SCH ×2 (11:37→21:14)
[2019-05-10] MEDS: Insulin Glargine 15 UNITS in Pre-Filled Syringe 1 EACH SC SCH ×2 (11:46→21:15)
[2019-05-10] MEDS: Enoxaparin Sodium 40 MG/0.4 ML SYRINGE SC SCH (11:57)
--- NOTE | 2019-05-10 16:14 | CON ---
DATE OF CONSULTATION: DATE OF PROGRESS NOTE: 05/10/2019. DATE OF INITIAL CONSULTATION: 05/09/2019. REASON FOR CONSULTATION: Apparent urosepsis, hematuria, and two right-sided stones with partial obstruction. PROBLEM LIST: 1. Obstruction of right ureteropelvic junction (UPJ) due to stone, N20.1 2. Right kidney stone, N20.0 3. Urinary retention, R33.9 4. Parkinson disease ([facility]), G20 5. Diabetes mellitus type 2 with neurological manifestations ([facility]), E11.49 BRIEF HISTORY: Mr. 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 He is currently disabled and lives at home. He has a health aide who helps him with his activities of daily living. He was admitted due to apparent urosepsis and has responded well to IV antibiotics. He does have 2 right-sided stones including ureteropelvic junction stone on the right side, which measures over 1 cm in diameter. There is a second 5 mm calyceal stone on the same side. The patient was initially treated with Levaquin and Zosyn and has been making good progress and is afebrile. Overnight, the patient has continued to do well. He has an indwelling Hathaway catheter, which is draining slightly bloody urine, but otherwise he is okay. Today, he is opting to proceed to the operating room for stenting and further evaluation is required. PHYSICAL EXAMINATION: VITAL SIGNS: The patient's temperature is 97.4, pulse 77, respirations 16, O2 saturations 96% on room air, blood pressure is 124/64, up from 125/58 last night. HEAD, EYES, EARS, NOSE, AND THROAT: Extraocular movements are intact. Sclerae anicteric. Oropharynx is clear. NECK: Supple. LUNGS: Clear to auscultation bilaterally. CARDIAC: There is a regular rhythm. ABDOMEN: Soft and nontender. BACK: There is no true costovertebral angle tenderness on either side today. I think from previous examination of this patient that he has limited pain perception or processing ability. GENITOURINARY: Indwelling Hathaway catheter remains in place. EXTREMITIES: Appear within normal limits and unchanged from yesterday. LABORATORY DATA: The patient has not had additional laboratories other than blood glucose levels since yesterday. Current blood glucose is 155. His urine culture is still reporting no growth at 12 hours. ASSESSMENT: 1. Urinary tract infection. I believe this is primarily due to outlet obstruction. He has indwelling Hathaway catheter to manage that and would be appropriate for maximal medical therapy. He self-reports that Dr. Michael did a transurethral resection of prostate around 2003 on him, although I am not able access those records in the record system. Those were too far back and on a previous electronic record system. The patient reports that he is tolerating the catheter well and is essentially insensate to it. He does seem to have some poor pain sensory aspects. Due to his mental status being about the same as yesterday, I think these symptoms are his baseline. 2. Urosepsis. Apparently in resolution with appropriate antibiotic coverage. 3. Bladder outlet obstruction. Currently managed with a catheter. The patient had previous transurethral resection of prostate by his own report and we will investigate that further on today's cystoscopic examination. 4. Hematuria. The patient will undergo cystoscopic evaluation for that. I believe this is likely related to either the stone or his apparent urinary tract infection. 5. Right-sided stones, 1 cm and 5 mm. PLAN: Plan will be to place a stent adjacent to these due to the concurrent infection. We are not planning on addressing these other than draining the system on the right side. Radiologic studies were reviewed and the patient marked for surgery later today. TIME SPENT: Over 35 minutes of subsequent evaluation and assessment time was spent in the care of this patient, over of which was in face to face evaluation, or in coordination of care, or in communication with the patient's family regarding care, exclusive of any procedures performed, [id number]. Job ID: [id number] [facility]
--- NOTE | 2019-05-10 16:34 | OP ---
DATE OF PROCEDURE: 05/10/2019 PREOPERATIVE DIAGNOSES: 1. Right renal calculi x2, N20.0. 2. Apparent urinary tract infection. 3. Possible yeast urinary tract infection. POSTOPERATIVE DIAGNOSES: 1. Right renal calculi x2, N20.0. 2. Apparent urinary tract infection. 3. Possible yeast urinary tract infection. PROCEDURES PERFORMED: 1. Cystourethroscopy with right-sided double-J ureteral stent placement, 32211. 2. Bilateral retrograde pyelography, due to gross hematuria, 48762. PROBLEM LIST: 1. Obstruction of right ureteropelvic junction (UPJ) due to stone, N20.1 2. Right kidney stone, N20.0 3. Urinary retention, R33.9 4. Parkinson disease ([facility]), G20 5. Diabetes mellitus type 2 with neurological manifestations ([facility]), E11.49 STUDY LEAD: None. BRIEF HISTORY: Mr. Kavon Arevalo is a pleasant 68-year-old white male with history of Parkinson disease and previous transurethral resection of prostate gland. The patient has history of outlet obstruction and poor voiding present over the last 6 months to a year. He does have a past history self-reported of a transurethral resection of prostate gland. The patient presented after falling at home and was evaluated by CT scanning. This demonstrated the presence of 2 right-sided renal calculi. The patient also had gross hematuria and underwent Hathaway catheter placement. He has been doing well with that in place and has improved on antibiotic therapy. The patient opted to proceed to the operating room for right-sided stent placement as initial treatment for his possibly obstructing right-sided calculus at the UPJ. The patient has 2 calculi on the right side. DESCRIPTION OF PROCEDURE: The patient was appropriately identified in the preoperative holding area. He was subsequently brought to the operative suite. He was placed in the supine position on the operative table and general anesthesia was established. The patient underwent repositioned in the supine lithotomy position and was prepped and draped in the usual sterile fashion. Cystoscopic evaluation was performed following appropriate time-out. The patient's urethra distally was evaluated after removal of the indwelling catheter, which was removed prior to the prep. The patient's urethra showed only changes consistent with indwelling Hathaway catheter. The patient's urinary sphincter was opened at rest. The patient's prostate gland appeared to have been previously resected. The patient's prostate gland had some irritation consistent with recent indwelling Hathaway catheter. The patient's bladder lining also exhibited these changes. Left and right ureteric openings appeared of reasonable diameter. We accessed the right ureteric opening first passing a 5-Solomon Islander Pollack catheter over a 0.035 inch Glidewire. This was advanced to the renal pelvis along with the Pollack catheter 5-Solomon Islander. Two radiopaque calculi, one in the upper pole area and one at the UPJ, were seen. The UPJ stone was dislodged and resulted in flocculent material entering into the patient's bladder from the ureter. We aspirated urine from the renal pelvis for culture. We performed retrograde pyelography on the right side. It showed the outlines of the previously radiopaque stones. We placed a 4.5-Solomon Islander x 28 cm double-J ureteral stent in the right ureter and removed the string. We obtained good coil in the renal pelvis as well as in the patient's bladder. We then turned our attention to the left side. Here, we performed cone-tip retrograde pyelogram due to concurrent concerns of UTI. Cone-tip evaluation showed delicate collecting system on the left side with no evidence of filling defects. Review of the patient's retrograde evaluation of the right side showed similar findings except for filling defects consisting of 2 stones. Since there was no evidence of upper tract urothelial disease based on these studies. The bladder lining itself was further examined. There was trabeculation stage III with saccule formation. The patient's bladder showed what appeared to be catheter irritation in multiple areas. Repeat cystoscopic evaluation is recommended in the future based on the findings of the lining of bladder. Carcinoma in situ could not be excluded. Wound catheter irritation is present. The patient's bladder was completely drained. Additional fluorographic imaging was performed along the course of the evaluation. No suppository was placed at the end of the procedure due to the patient's good tolerance of pain and relatively sedate personality. A 22-Sol[place] Islander 3-way Hathaway catheter with a 30 mL balloon was placed in the patient's urethra. The bladder was drained using this and the balloon was filled to 30 mL. There was some trace hematuria as had been present prior to surgery, but no new significant hematuria. Based on these findings, a side- port on the 3-way catheter was placed to catheter plug. The patient was returned fully to the supine position and was subsequently transferred to a hospital bed. He was transported from the operative suite, breathing on his own after removal of the airway. ANESTHESIA: General. COMPLICATIONS: None evident. ESTIMATED BLOOD LOSS: 0 mL. DRAINS AND TUBES: A 4.5-Solomon Islander x 28 cm double-J ureteral stent in the right ureter to the right renal pelvis observed stones include one in the UPJ area of the right kidney and in the upper pole area of the right kidney. SPECIMENS: Collected the urine from the right renal pelvis for culture. Job ID: [id number] [facility]
[2019-05-10] MEDS: HumaLOG 300 UNITS/3 ML VIAL SC PRN (17:04)
[2019-05-10] MEDS: OXcarbazepine 300 MG TAB PO SCH (21:15)
[2019-05-11] MEDS: Levothyroxine Sodium 50 MCG TAB PO SCH (05:31)
[2019-05-11 05:46] LABS: #Basophils 0.1 thou/uL (0.0-0.2); #Eosinphils 0.4 thou/uL (0.0-0.7); #Lymphocytes 3.6 thou/uL (1.20-3.40); #Monocytes 0.6 thou/uL (0.11-0.59); #Neutrophils 6.2 thou/uL (1.40-6.50); %Basophils 0.8 % (0.0-1.0); %Eosinophils 3.4 % (0.0-10.0); %Lymphocytes 33.5 % (21.0-51.0); %Monocytes 5.4 % (0.0-10.0); %Neutrophils 56.9 % (42.0-75.0); Hemoglobin 13.1 g/dL (14.0-18.0); Mean Corpuscular HGB CONC 33.2 g/dL (32.0-36.0); Mean Corpuscular Hemoglobin 31.6 pg (27.0-31.0); Mean Platelet Volume 6.5 fL (7.4-10.4); Platelet Count 321 thou/uL (130-400); Red Blood Cell (RBC) Count 4.16 mill/uL (4.70-6.10); White Blood Cell (WBC) Count 10.8 thou/uL (4.8-10.8)
[2019-05-11 06:08] LABS: ALT (SGPT) 8 U/L (8-55); AST (SGOT) 18 U/L (5-34); Albumin 3.5 g/dL (3.4-4.8); Alkaline Phosphatase 82 U/L (40-150); Anion Gap 12 mmol/L (10-20); BUN (Urea Nitrogen) 14 mg/dL (8.4-25.7); Bilirubin, Total 0.4 mg/dL (0.2-1.2); Calc. Creatinine Clearance 122 mL/min (70-130); Calcium 9.7 mg/dL (7.8-10.44); Carbon Dioxide 28 mmol/L (23-31); Chloride 101 mmol/L (98-107); Estimated GFR-MDRD 90; Globulin 3.4 g/dL (2.4-3.5); Glucose 146 mg/dL (80-115); Protein, Total 6.9 g/dL (5.8-8.1); Sodium 137 mmol/L (136-145)
[2019-05-11] MEDS: metFORMIN XR 500 MG TAB PO SCH ×2 (08:52→19:14)
[2019-05-11] MEDS: Aspirin 81 mg Enteric Coated Tablet PO SCH (08:52)
[2019-05-11] MEDS: Carbidopa/Levodopa 25-250 mg Tablet PO SCH ×3 (08:53→20:07)
[2019-05-11] MEDS: Docusate 100 MG CAP PO SCH ×2 (08:53→20:08)
[2019-05-11] MEDS: Cefepime 1 GM in Sodium Chloride 0.9% 100 ML IVPB SCH ×2 (08:53→19:49)
[2019-05-11] MEDS: Insulin Glargine 15 UNITS in Pre-Filled Syringe 1 EACH SC SCH ×2 (08:54→21:17)
[2019-05-11] MEDS: Losartan 25 MG TAB PO SCH (08:54)
[2019-05-11] MEDS: Famotidine 20 MG TAB PO SCH ×2 (08:54→20:08)
[2019-05-11] MEDS: Enoxaparin Sodium 40 MG/0.4 ML SYRINGE SC SCH (08:54)
[2019-05-11] MEDS: Senokot S 8.6-50 MG TAB PO SCH ×2 (08:55→20:08)
[2019-05-11] MEDS: Lubiprostone 24 MCG CAP PO SCH (08:55)
[2019-05-11] MEDS: Tamsulosin HCl 0.4 MG CAP PO SCH (08:55)
[2019-05-11] MEDS: Saccharomyces boulardii 250 MG CAP PO SCH (08:55)
[2019-05-11] MEDS: Venlafaxine HCl XR 150 MG CAP PO SCH (08:55)
--- NOTE | 2019-05-11 10:41 | PDOC.PN ---
- Subjective Encounter Start Date: 05/11/19 Encounter Start Time: 07:30 Patient seen and examined. No new complaints. No overnight events - Objective Resuscitation Status - Order Detail: 05/09/19 00:44 Resuscitation Status Routine Resuscitation Status: FULL: Full Resuscitation MAR Reviewed: Yes Vital Signs & Weight: Vital Signs (12 hours) Temp Pulse Resp BP Pulse Ox 05/11/19 07:53 98.7 F 88 18 164/77 H 97 05/11/19 03:29 97.2 F L 89 19 163/75 H 94 L Weight Admit Weight 223 lb 3.2 oz Weight 222 lb 4.8 oz I&O: 05/10/19 05/11/19 05/12/19 06:59 06:59 06:59 Intake Total 2310 1978 Output Total 1150 1765 Balance 1160 213 Result Diagrams: 05/11/19 05:21 05/11/19 05:21 Additional Labs: Accuchecks 05/11/19 05/10/19 05/10/19 05:22 20:42 16:53 POC Glucose 141 H 156 H 195 H 05/10/19 11:25 POC Glucose 149 H EKG Reviewed by me: Yes Phys Exam - Physical Examination Constitutional: NAD HEENT: PERRLA, moist MMs, sclera anicteric Neck: no JVD, supple Respiratory: no wheezing, no rales, no rhonchi Cardiovascular: RRR, no significant murmur, no rub Gastrointestinal: soft, non-tender, no distention, positive bowel sounds obesity+ Musculoskeletal: no edema, pulses present Neurological: non-focal, normal sensation parkinsonian tremor Lymphatic: no nodes Psychiatric: normal affect, A&O x 3 Skin: no rash, normal turgor Dx/Plan (1) Sepsis Code(s): A41.9 - SEPSIS, UNSPECIFIED ORGANISM Status: Acute Comment: (2) UTI (urinary tract infection) Status: Acute (3) Anxiety and depression Code(s): F41.9 - ANXIETY DISORDER, UNSPECIFIED; F32.9 - MAJOR DEPRESSIVE DISORDER, SINGLE EPISODE, UNSPECIFIED Status: Chronic (4) BPH (benign prostatic hyperplasia) Code(s): N40.0 - BENIGN PROSTATIC HYPERPLASIA WITHOUT LOWER URINRY TRACT SYMP Status: Chronic (5) DM2 (diabetes mellitus, type 2) Status: Chronic Comment: (6) HTN (hypertension) Code(s): I10 - ESSENTIAL (PRIMARY) HYPERTENSION Status: Chronic Qualifiers: Comment: (7) Nephrolithiasis Status: Chronic (8) Obesity (BMI 30-39.9) Code(s): E66.9 - OBESITY, UNSPECIFIED Status: Chronic (9) Parkinson disease Code(s): G20 - PARKINSON'S DISEASE Status: Chronic Comment: (10) Schizoaffective disorder Code(s): F25.9 - SCHIZOAFFECTIVE DISORDER, UNSPECIFIED Status: Chronic - Plan cont current plan of care, koehler catheter, continue antibiotics, PT/OT, pediatric social worker * dc tele * transfer to medical * continue current IV antibiotic, cefepime * hematuria improving, will leave koehler in for now, on discharge decision of koehler will defer to urology * medication reviewed as below * symptomatic treatment * pt will need some extra help on weekend to prevent fall, will consult caser up. Review of Systems - Review of Systems ENT: negative: Ear Pain, Ear Discharge, Nose Pain, Nose Discharge, Nose Congestion, Mouth Pain, Mouth Swelling, Throat Pain, Throat Swelling, Other Respiratory: negative: Cough, Dry, Shortness of Breath, Hemoptysis, SOB with Excertion, Pleuritic Pain, Sputum, Wheezing Cardiovascular: negative: chest pain, palpitations, orthopnea, paroxysmal nocturnal dyspnea, edema, light headedness, other Gastrointestinal: negative: Nausea, Vomiting, Abdominal Pain, Diarrhea, Constipation, Melena, Hematochezia, Other Genitourinary: negative: Dysuria, Frequency, Incontinence, Hematuria, Retention , Other Musculoskeletal: negative: Neck Pain, Shoulder Pain, Arm Pain, Back Pain, Hand Pain, Leg Pain, Foot Pain, Other - Medications/Allergies Allergies/Adverse Reactions: Allergies Allergy/AdvReac Type Severity Reaction Status Date / Time No Known Drug Allergies Allergy Unknown Verified 03/05/19 02:00 Medications: Current Medications Acetaminophen (Tylenol) 650 mg PO Q4H PRN PRN Reason: Headache/Fever/Mild Pain (1-3) Hydrocodone Bitart/Acetaminophen ([place]rum 5/325) 1 tab PO Q4H PRN PRN Reason: Moderate Pain (4-6) Artificial Tears (Tears Naturale) 2 drop EA EYE PRN PRN PRN Reason: Dry Eyes Aspirin (Ecotrin) 81 mg PO DAILY [facility] Last Admin: 05/11/19 08:52 Dose: 81 mg Bisacodyl (Dulcolax) 10 mg [place] DAILYPRN PRN PRN Reason: Constipation Carbidopa/Levodopa (Sinemet 25-250) 1 tab PO TID [facility] Last Admin: 05/11/19 08:53 Dose: 1 tab Dextrose/Water (Dextrose 50%) 25 gm SLOW IVP PRN PRN PRN Reason: Hypoglycemia Docusate Sodium (Colace) 100 mg PO BID [facility] Last Admin: 05/11/19 08:53 Dose: 100 mg Enoxaparin Sodium (Lovenox) 40 mg SC 0900 [facility] Last Admin: 05/11/19 08:54 Dose: Not Given Famotidine (Pepcid) 20 mg PO BID [facility] Last Admin: 05/11/19 08:54 Dose: 20 mg Glucagon (Glucagon) 1 mg IM PRN PRN PRN Reason: Hypoglycemia Guaifenesin (Robitussin Sf) 200 mg PO Q4H PRN PRN Reason: Cough Guaifenesin/Dextromethorphan (Robitussin Dm) 15 ml PO Q4H PRN PRN Reason: Cough Hydralazine HCl (Apresoline) 10 mg SLOW IVP Q4H PRN PRN Reason: SBP > 180 and HR < 70 Dextrose/Water (D5w) 1,000 mls @ 0 mls/hr IV .Q0M PRN PRN Reason: Hypoglycemia Cefepime HCl 1 gm/ Sodium (Chloride) 100 mls @ 200 mls/hr IVPB Q12HR [facility] Last Admin: 05/11/19 08:53 Dose: 100 mls Insulin Glargine 15 units/ (Miscellaneous Medication) 0.15 mls @ 0 mls/hr SC BID [facility] Last Admin: 05/11/19 08:54 Dose: 0.15 mls Insulin Human Lispro (Humalog) 0 units SC .MODERATE SLIDING SC PRN PRN Reason: Moderate Correctional Scale Last Admin: 05/10/19 17:04 Dose: 2 unit Insulin Human Lispro (Humalog) 0 units SC .BEDTIME SLIDING SC PRN PRN Reason: Bedtime Correctional Scale Levothyroxine Sodium (Synthroid) 50 mcg PO 0600 [facility] Last Admin: 05/11/19 05:31 Dose: 50 mcg Loratadine (Claritin) 10 mg PO DAILYPRN PRN PRN Reason: Sinus Symptoms Losartan Potassium (Cozaar) 100 mg PO DAILY [facility] Last Admin: 05/11/19 08:54 Dose: 100 mg Lubiprostone (Amitiza) 24 mcg PO DAILY [facility] Last Admin: 05/11/19 08:55 Dose: 24 mcg Metformin HCl (Glucophage Xr) 500 mg PO BID-WM [facility] Last Admin: 05/11/19 08:52 Dose: 500 mg Oxcarbazepine (Trileptal) 600 mg PO HS [facility] Last Admin: 05/10/19 21:15 Dose: 600 mg Saccharomyces Boulardii (Florastor) 250 mg PO DAILY [facility] Last Admin: 05/11/19 08:55 Dose: 250 mg Senna/Docusate Sodium (Senokot S) 2 tab PO BID [facility] Last Admin: 05/11/19 08:55 Dose: 2 tab Sertraline HCl (Zoloft) 100 mg PO DAILY [facility] Last Admin: 05/11/19 08:55 Dose: 100 mg Sodium Chloride (Flush - Normal Saline) 10 ml IVF Q12HR [facility] Last Admin: 05/11/19 08:55 Dose: 10 ml Sodium Chloride (Flush - Normal Saline) 10 ml IVF PRN PRN PRN Reason: Saline Flush Sodium Chloride ([place]itus Nasal [place] 0.65%) 0 ml EA NARE QIDPRN PRN PRN Reason: Nasal Congestion Tamsulosin HCl (Flomax) 0.4 mg PO DAILY [facility] Last Admin: 05/11/19 08:55 Dose: 0.4 mg Throat Lozenges (Cepastat Lozenges) 1 pedro luis PO Q2H PRN PRN Reason: Sore Throat Venlafaxine HCl (Effexor Xr) 150 mg PO DAILY [facility] Last Admin: 05/11/19 08:55 Dose: 150 mg Verapamil HCl (Calan Er) 180 mg PO DAILY [facility] Last Admin: 05/11/19 08:55 Dose: 180 mg
[2019-05-11] MEDS: HumaLOG 300 UNITS/3 ML VIAL SC PRN (12:10)
--- NOTE | 2019-05-11 14:17 | PQF ---
CLINICAL DOCUMENTATION IMPROVEMENT CLARIFICATION FORM: ICD-10 Updated PLEASE DO AN ADDENDUM TO THE PROGRESS NOTE WITH ANY DOCUMENTATION UPDATES OR ADDITIONS AND CARRY THROUGH TO DC SUMMARY. THANK YOU. DATE: 05/11/2019 ATTN: Dr. Gomez Please exercise your independent, professional judgment in responding to the clarification form. Clinical indicators are provided on the bottom of this form for your review Please check appropriate box(s): [ x] I (concur) with the Nursing Assessment findings as stated below. [ ] Pressure Ulcer: (Stage I: Erythema; Stage II: Partial thickness; Stage III : Full thickness; Stage IV: Necrosis to muscle/bone) [ ] Location: Stage (I to IV): ___ (Left___Right___Bilateral___N/A___) [ ] Location: Stage (I to IV): ___ (Left___Right___Bilateral___N/A___) [ ] Location: Stage (I to IV): ___ (Left___Right___Bilateral___N/A___) [ ] No pressure ulcer diagnosis [ ] Other diagnosis [ ] Unable to determine In addition, please specify: Present on Admission (POA): [x ] Yes [ ] No [ ] Unable to determine For continuity of documentation, please document condition throughout progress notes and discharge summary. Thank You. CLINICAL INDICATORS - SIGNS / SYMPTOMS / LABS Nursing Assessment: 05/08: Left Heel Pressure Ulcer. Stage I Buttock Pressure Ulcer. Stage I Sacrococcygeal Pressure Ulcer. Stage II RISKS: H&P 05/08: He has severe tremor in both upper extremities. The pt cannot even turn in bed from side to side. Hx of Parkinsoon disease, schizoaffective disorder, HTN. Admitted for sepsis, recurrent falls, and UTI. DM2. TREATMENT: Skin Interventions per Nursing Protocol: Skin kept from excessive moisture. Turn Q2 H PRN. Pre-ulcer skin changes limited to persistent focal edema (Stage 1) Abrasion, blister, partial thickness skin loss involving epidermis and/or dermis (Stage 2) Full thickness skin loss involving damage or necrosis of SQ tissue. (Stage 3) Necrosis of soft tissue through to underlying muscle, tendon, or bone. (Stage 4) Purple or maroon discolored skin or blood filled blister Thank you, Linda (This form is maintained as a part of the permanent medical record) 2014 [employer] All Rights Reserved Linda Freeman RN, BSN [email or web address] Office: [phone] CHARMAINE
[2019-05-11] MEDS: OXcarbazepine 300 MG TAB PO SCH (20:08)
--- NOTE | 2019-05-12 02:06 | CON ---
DATE OF CONSULTATION: 05/11/2019 INITIAL REASON FOR CONSULTATION: 1. Nephrolithiasis of the right kidney with two calculi. 2. Possible urinary tract infection. PROCEDURES PERFORMED DURING HOSPITALIZATION: 1. Cystourethroscopy with right-sided double-J ureteral stent placement. 2. Bilateral retrograde pyelography due to gross hematuria. PROBLEM LIST: 1. Obstruction of right ureteropelvic junction (UPJ) due to stone, N20.1 2. Right kidney stone, N20.0 3. Urinary retention, R33.9 4. Parkinson disease ([facility]), G20 5. Diabetes mellitus type 2 with neurological manifestations (HCC), E11.49 BRIEF HISTORY: Mr. aKvon Arevalo is a very pleasant 68-year-old white male from [place], [place] with a history of Parkinson disease and previous transurethral resection of prostate by his report. He apparently also has a history of kidney stones, although he was not able to relate that to me yesterday. The patient does have a history of outlet obstruction and poor voiding present over the last 6 months to a year. The patient apparently fell at home, was evaluated by CT scanning. The patient had 2 right-sided renal calculi identified, 1 about 1 cm in diameter at the UPJ level. The patient underwent cystoscopy and stent placement on the right side as well as bilateral retrograde pyelography on 05/10/2019. State he reports he is doing well and indwelling Hathaway catheter remains in place due to his history of outlet obstruction. PHYSICAL EXAMINATION: VITAL SIGNS: Temperature is 98.2, pulse 86, respirations 16, room air O2 saturation is 93%, and blood pressure is 166/82. HEAD, EYES, EARS, NOSE, AND THROAT: Extraocular movements are intact. Sclerae anicteric. Oropharynx is clear. NECK: Supple. LUNGS: Clear to auscultation bilaterally. CARDIAC: Regular rate and rhythm without murmur, rub, or gallop. ABDOMEN: Soft, obese, and nontender. GENITOURINARY: Indwelling Hathaway catheter remains in place. BACK: There is no evidence of costovertebral angle tenderness on either side. LABORATORY STUDIES: The patient's admission white count was 17,500 with 86% neutrophils and an ANC number of 15.2. This has fallen to a normal white blood cell count of 10.8 today with a percent neutrophil count of 56.9, and ANC of 6.2, both of which are normal. Serum chemistries showed the patient's creatinine at 0.85, blood urea nitrogen at 14 today. Electrolytes are all within normal limits. Estimated glomerular filtration rate today is 90. The patient does run elevated serum glucose secondary to diabetes with a current blood glucose of 183. ASSESSMENT: Right-sided kidney stones x2. The patient is a routine patient of Dr. Linwood Michael and will be followed by him for the kidney stone diagnosis. The patient also has some recent history of outlet obstruction issues, may need to undergo additional evaluations for that. At present time, we are managing his outlet obstruction with an indwelling Hathaway catheter. The patient will be expected to go home on maximal medical therapy for his enlarged prostate. I searched [facility] records and the available electronic records from [facility], I am not able to find any previous surgeries for kidney stones or transurethral resections of the prostate. The patient's case was discussed with Dr. Linwood Michael who will round on the patient tomorrow. TIME SPENT: Over 35 minutes of subsequent evaluation and assessment time was spent in the care of this patient, over of which was in face to face evaluation, or in coordination of care, or in communication with the patient's family regarding care, exclusive of any procedures performed, [id number]. Job ID: [id number] MTDD
[2019-05-12] MEDS: Levothyroxine Sodium 50 MCG TAB PO SCH (05:34)
[2019-05-12] MEDS: Aspirin 81 mg Enteric Coated Tablet PO SCH (08:22)
[2019-05-12] MEDS: Tamsulosin HCl 0.4 MG CAP PO SCH (08:23)
[2019-05-12] MEDS: Saccharomyces boulardii 250 MG CAP PO SCH (08:23)
[2019-05-12] MEDS: Venlafaxine HCl XR 150 MG CAP PO SCH (08:23)
[2019-05-12] MEDS: Famotidine 20 MG TAB PO SCH ×2 (08:23→20:35)
[2019-05-12] MEDS: metFORMIN XR 500 MG TAB PO SCH ×2 (08:31→17:37)
[2019-05-12] MEDS: Losartan 25 MG TAB PO SCH (08:34)
[2019-05-12] MEDS: Carbidopa/Levodopa 25-250 mg Tablet PO SCH ×3 (10:59→20:34)
[2019-05-12] MEDS: Lubiprostone 24 MCG CAP PO SCH (10:59)
[2019-05-12] MEDS: Insulin Glargine 15 UNITS in Pre-Filled Syringe 1 EACH SC SCH ×2 (10:59→20:57)
[2019-05-12] MEDS: Docusate 100 MG CAP PO SCH ×2 (11:00→20:35)
[2019-05-12] MEDS: Enoxaparin Sodium 40 MG/0.4 ML SYRINGE SC SCH (11:00)
[2019-05-12] MEDS: Senokot S 8.6-50 MG TAB PO SCH ×2 (11:00→21:05)
[2019-05-12] MEDS: Cefepime 1 GM in Sodium Chloride 0.9% 100 ML IVPB SCH (11:03)
--- NOTE | 2019-05-12 11:40 | PDOC.PN ---
- Subjective Encounter Start Date: 05/12/19 Encounter Start Time: 07:20 Patient seen and examined. No new complaints. No overnight events - Objective Resuscitation Status - Order Detail: 05/09/19 00:44 Resuscitation Status Routine Resuscitation Status: FULL: Full Resuscitation MAR Reviewed: Yes Vital Signs & Weight: Vital Signs (12 hours) Temp Pulse Resp BP Pulse Ox 05/12/19 08:00 98.0 F 78 20 171/79 H 94 L 05/12/19 03:53 97.6 F 92 18 154/77 H 95 05/12/19 00:00 98.5 F 90 18 151/72 H 94 L Weight Admit Weight 223 lb 3.2 oz Weight 222 lb 4.8 oz I&O: 05/11/19 05/12/19 05/13/19 06:59 06:59 06:59 Intake Total 1978 1470 Output Total 1765 2570 750 Balance 213 1100 750 Result Diagrams: 05/11/19 05:21 05/11/19 05:21 Additional Labs: Accuchecks 05/12/19 05/11/19 05/11/19 03:58 20:59 17:28 POC Glucose 230 H 170 H 183 H Phys Exam - Physical Examination Constitutional: NAD HEENT: PERRLA, moist MMs, sclera anicteric Neck: no JVD, supple Respiratory: no wheezing, no rales, no rhonchi Cardiovascular: RRR, no significant murmur, no rub Gastrointestinal: soft, non-tender, no distention, positive bowel sounds Musculoskeletal: no edema, pulses present Neurological: non-focal, normal sensation Lymphatic: no nodes Psychiatric: normal affect Skin: no rash, normal turgor Dx/Plan (1) Sepsis Code(s): A41.9 - SEPSIS, UNSPECIFIED ORGANISM Status: Acute Comment: (2) UTI (urinary tract infection) Status: Acute (3) Anxiety and depression Code(s): F41.9 - ANXIETY DISORDER, UNSPECIFIED; F32.9 - MAJOR DEPRESSIVE DISORDER, SINGLE EPISODE, UNSPECIFIED Status: Chronic (4) BPH (benign prostatic hyperplasia) Code(s): N40.0 - BENIGN PROSTATIC HYPERPLASIA WITHOUT LOWER URINRY TRACT SYMP Status: Chronic (5) DM2 (diabetes mellitus, type 2) Status: Chronic Comment: (6) HTN (hypertension) Code(s): I10 - ESSENTIAL (PRIMARY) HYPERTENSION Status: Chronic Qualifiers: Comment: (7) Nephrolithiasis Status: Chronic (8) Obesity (BMI 30-39.9) Code(s): E66.9 - OBESITY, UNSPECIFIED Status: Chronic (9) Parkinson disease Code(s): G20 - PARKINSON'S DISEASE Status: Chronic Comment: (10) Schizoaffective disorder Code(s): F25.9 - SCHIZOAFFECTIVE DISORDER, UNSPECIFIED Status: Chronic - Plan cont current plan of care, 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 Review of Systems - Review of Systems ENT: negative: Ear Pain, Ear Discharge, Nose Pain, Nose Discharge, Nose Congestion, Mouth Pain, Mouth Swelling, Throat Pain, Throat Swelling, Other Respiratory: negative: Cough, Dry, Shortness of Breath, Hemoptysis, SOB with Excertion, Pleuritic Pain, Sputum, Wheezing Cardiovascular: negative: chest pain, palpitations, orthopnea, paroxysmal nocturnal dyspnea, edema, light headedness, other Gastrointestinal: negative: Nausea, Vomiting, Abdominal Pain, Diarrhea, Constipation, Melena, Hematochezia, Other Genitourinary: negative: Dysuria, Frequency, Incontinence, Hematuria, Retention , Other Musculoskeletal: negative: Neck Pain, Shoulder Pain, Arm Pain, Back Pain, Hand Pain, Leg Pain, Foot Pain, Other - Medications/Allergies Allergies/Adverse Reactions: Allergies Allergy/AdvReac Type Severity Reaction Status Date / Time No Known Drug Allergies Allergy Unknown Verified 03/05/19 02:00 Medications: Current Medications Acetaminophen (Tylenol) 650 mg PO Q4H PRN PRN Reason: Headache/Fever/Mild Pain (1-3) Hydrocodone Bitart/Acetaminophen ([place] 5/325) 1 tab PO Q4H PRN PRN Reason: Moderate Pain (4-6) Artificial Tears (Tears Naturale) 2 drop EA EYE PRN PRN PRN Reason: Dry Eyes Aspirin (Ecotrin) 81 mg PO DAILY [facility] Last Admin: 05/12/19 08:22 Dose: 81 mg Bisacodyl (Dulcolax) 10 mg MS DAILYPRN PRN PRN Reason: Constipation Carbidopa/Levodopa (Sinemet 25-250) 1 tab PO TID [facility] Last Admin: 05/12/19 10:59 Dose: 1 tab Dextrose/Water (Dextrose 50%) 25 gm SLOW IVP PRN PRN PRN Reason: Hypoglycemia Docusate Sodium (Colace) 100 mg PO BID [facility] Last Admin: 05/12/19 11:00 Dose: Not Given Enoxaparin Sodium (Lovenox) 40 mg SC 0900 [facility] Last Admin: 05/12/19 11:00 Dose: 40 mg Famotidine (Pepcid) 20 mg PO BID [facility] Last Admin: 05/12/19 08:23 Dose: 20 mg Glucagon (Glucagon) 1 mg IM PRN PRN PRN Reason: Hypoglycemia Guaifenesin (Robitussin Sf) 200 mg PO Q4H PRN PRN Reason: Cough Guaifenesin/Dextromethorphan (Robitussin Dm) 15 ml PO Q4H PRN PRN Reason: Cough Hydralazine HCl (Apresoline) 10 mg SLOW IVP Q4H PRN PRN Reason: SBP > 180 and HR < 70 Dextrose/Water (D5w) 1,000 mls @ 0 mls/hr IV .Q0M PRN PRN Reason: Hypoglycemia Cefepime HCl 1 gm/ Sodium (Chloride) 100 mls @ 200 mls/hr IVPB Q12HR [facility] Last Admin: 05/12/19 11:03 Dose: Not Given Insulin Glargine 15 units/ (Miscellaneous Medication) 0.15 mls @ 0 mls/hr SC BID [facility] Last Admin: 05/12/19 10:59 Dose: 0.15 mls Insulin Human Lispro (Humalog) 0 units SC .MODERATE SLIDING SC PRN PRN Reason: Moderate Correctional Scale Last Admin: 05/11/19 12:10 Dose: 2 unit Insulin Human Lispro (Humalog) 0 units SC .BEDTIME SLIDING SC PRN PRN Reason: Bedtime Correctional Scale Levothyroxine Sodium (Synthroid) 50 mcg PO 0600 [facility] Last Admin: 05/12/19 05:34 Dose: 50 mcg Loratadine (Claritin) 10 mg PO DAILYPRN PRN PRN Reason: Sinus Symptoms Losartan Potassium (Cozaar) 100 mg PO DAILY [facility] Last Admin: 05/12/19 08:34 Dose: 100 mg Lubiprostone (Amitiza) 24 mcg PO DAILY [facility] Last Admin: 05/12/19 10:59 Dose: 24 mcg Metformin HCl (Glucophage Xr) 500 mg PO BID-WM [facility] Last Admin: 05/12/19 08:31 Dose: 500 mg Oxcarbazepine (Trileptal) 600 mg PO HS [facility] Last Admin: 05/11/19 20:08 Dose: 600 mg Saccharomyces Boulardii (Florastor) 250 mg PO DAILY [facility] Last Admin: 05/12/19 08:23 Dose: 250 mg Senna/Docusate Sodium (Senokot S) 2 tab PO BID [facility] Last Admin: 05/12/19 11:00 Dose: Not Given Sertraline HCl (Zoloft) 100 mg PO DAILY [facility] Last Admin: 05/12/19 08:23 Dose: 100 mg Sodium Chloride (Flush - Normal Saline) 10 ml IVF Q12HR [facility] Last Admin: 05/12/19 11:04 Dose: Not Given Sodium Chloride (Flush - Normal Saline) 10 ml IVF PRN PRN PRN Reason: Saline Flush Sodium Chloride ([place] Nasal [place] 0.65%) 0 ml EA NARE QIDPRN PRN PRN Reason: Nasal Congestion Tamsulosin HCl (Flomax) 0.4 mg PO DAILY [facility] Last Admin: 05/12/19 08:23 Dose: 0.4 mg Throat Lozenges (Cepastat Lozenges) 1 pedro luis PO Q2H PRN PRN Reason: Sore Throat Venlafaxine HCl (Effexor Xr) 150 mg PO DAILY [facility] Last Admin: 05/12/19 08:23 Dose: 150 mg Verapamil HCl (Calan Er) 180 mg PO DAILY [facility] Last Admin: 05/12/19 10:59 Dose: 180 mg
[2019-05-12] MEDS ORDERED: Cefdinir 300 MG CAP PO SCH (12:30)
[2019-05-12 12:43] LABS: Platelet Count 361 thou/uL (130-400)
[2019-05-12 12:57] LABS: EPI 151 SEC (67-199)
[2019-05-12 13:49] LABS: INR-International Normal Ratio 0.9; PTT 31.1 SEC (22.9-36.1); Prothrombin Time 12.4 SEC (12.0-14.7)
[2019-05-12] MEDS: Cefdinir 300 MG CAP PO SCH (20:34)
[2019-05-12] MEDS: OXcarbazepine 300 MG TAB PO SCH (20:35)
[2019-05-13] MEDS: Levothyroxine Sodium 50 MCG TAB PO SCH (05:13)
[2019-05-13] MEDS: Enoxaparin Sodium 40 MG/0.4 ML SYRINGE SC SCH (07:19)
[2019-05-13 11:10] LABS: PTT 29.5 SEC (22.9-36.1); Prothrombin Time 12.7 SEC (12.0-14.7)
--- NOTE | 2019-05-13 11:41 | PDOC.PN ---
- Subjective Encounter Start Date: 05/13/19 Encounter Start Time: 10:50 Patient seen and examined. No new complaints. No overnight events - Objective Resuscitation Status - Order Detail: 05/09/19 00:44 Resuscitation Status Routine Resuscitation Status: FULL: Full Resuscitation MAR Reviewed: Yes Vital Signs & Weight: Vital Signs (12 hours) Temp Pulse Resp BP Pulse Ox 05/13/19 08:00 98.5 F 90 20 151/82 H 96 05/13/19 04:00 98.1 F 91 18 162/81 H 95 Weight Admit Weight 223 lb 3.2 oz Weight 222 lb 4.8 oz I&O: 05/12/19 05/13/19 05/14/19 06:59 06:59 06:59 Intake Total 1470 1000 Output Total 2570 750 Balance -1100 250 Result Diagrams: 05/11/19 05:21 05/11/19 05:21 Additional Labs: Accuchecks 05/13/19 05/12/19 05/12/19 05:38 20:47 17:15 POC Glucose 233 H 221 H 171 H 05/12/19 12:12 POC Glucose 192 H Phys Exam - Physical Examination Constitutional: NAD HEENT: PERRLA, moist MMs, sclera anicteric Neck: no JVD, supple Respiratory: no wheezing, no rales, no rhonchi Cardiovascular: RRR, no significant murmur, no rub Gastrointestinal: soft, non-tender, no distention, positive bowel sounds Musculoskeletal: no edema, pulses present parkinsonian tremor Psychiatric: normal affect, A&O x 3 Skin: no rash, normal turgor Dx/Plan (1) Sepsis Code(s): A41.9 - SEPSIS, UNSPECIFIED ORGANISM Status: Acute Comment: (2) UTI (urinary tract infection) Status: Acute (3) Anxiety and depression Code(s): F41.9 - ANXIETY DISORDER, UNSPECIFIED; F32.9 - MAJOR DEPRESSIVE DISORDER, SINGLE EPISODE, UNSPECIFIED Status: Chronic (4) BPH (benign prostatic hyperplasia) Code(s): N40.0 - BENIGN PROSTATIC HYPERPLASIA WITHOUT LOWER URINRY TRACT SYMP Status: Chronic (5) DM2 (diabetes mellitus, type 2) Status: Chronic Comment: (6) HTN (hypertension) Code(s): I10 - ESSENTIAL (PRIMARY) HYPERTENSION Status: Chronic Qualifiers: Comment: (7) Nephrolithiasis Status: Chronic (8) Obesity (BMI 30-39.9) Code(s): E66.9 - OBESITY, UNSPECIFIED Status: Chronic (9) Parkinson disease Code(s): G20 - PARKINSON'S DISEASE Status: Chronic Comment: (10) Schizoaffective disorder Code(s): F25.9 - SCHIZOAFFECTIVE DISORDER, UNSPECIFIED Status: Chronic - Plan cont current plan of care, 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 * called family member on listed phone but unable to make contact, no voice mail Review of Systems - Review of Systems ENT: negative: Ear Pain, Ear Discharge, Nose Pain, Nose Discharge, Nose Congestion, Mouth Pain, Mouth Swelling, Throat Pain, Throat Swelling, Other Respiratory: negative: Cough, Dry, Shortness of Breath, Hemoptysis, SOB with Excertion, Pleuritic Pain, Sputum, Wheezing Cardiovascular: negative: chest pain, palpitations, orthopnea, paroxysmal nocturnal dyspnea, edema, light headedness, other Gastrointestinal: negative: Nausea, Vomiting, Abdominal Pain, Diarrhea, Constipation, Melena, Hematochezia, Other Genitourinary: negative: Dysuria, Frequency, Incontinence, Hematuria, Retention , Other Musculoskeletal: negative: Neck Pain, Shoulder Pain, Arm Pain, Back Pain, Hand Pain, Leg Pain, Foot Pain, Other - Medications/Allergies Allergies/Adverse Reactions: Allergies Allergy/AdvReac Type Severity Reaction Status Date / Time No Known Drug Allergies Allergy Unknown Verified 03/05/19 02:00 Medications: Current Medications Acetaminophen (Tylenol) 650 mg PO Q4H PRN PRN Reason: Headache/Fever/Mild Pain (1-3) Last Admin: 05/12/19 20:35 Dose: 650 mg Hydrocodone Bitart/Acetaminophen ([place] 5/325) 1 tab PO Q4H PRN PRN Reason: Moderate Pain (4-6) Artificial Tears (Tears Naturale) 2 drop EA EYE PRN PRN PRN Reason: Dry Eyes Aspirin (Ecotrin) 81 mg PO DAILY [facility] Last Admin: 05/12/19 08:22 Dose: 81 mg Bisacodyl (Dulcolax) 10 mg OR DAILYPRN PRN PRN Reason: Constipation Carbidopa/Levodopa (Sinemet 25-250) 1 tab PO TID [facility] Last Admin: 05/12/19 20:34 Dose: 1 tab Cefdinir (Omnicef) 300 mg PO BID [facility] Last Admin: 05/12/19 20:34 Dose: 300 mg Dextrose/Water (Dextrose 50%) 25 gm SLOW IVP PRN PRN PRN Reason: Hypoglycemia Docusate Sodium (Colace) 100 mg PO BID [facility] Last Admin: 05/12/19 20:35 Dose: 100 mg Enoxaparin Sodium (Lovenox) 40 mg SC 0900 [facility] Last Admin: 05/13/19 07:19 Dose: Not Given Famotidine (Pepcid) 20 mg PO BID [facility] Last Admin: 05/12/19 20:35 Dose: 20 mg Glucagon (Glucagon) 1 mg IM PRN PRN PRN Reason: Hypoglycemia Guaifenesin (Robitussin Sf) 200 mg PO Q4H PRN PRN Reason: Cough Guaifenesin/Dextromethorphan (Robitussin Dm) 15 ml PO Q4H PRN PRN Reason: Cough Hydralazine HCl (Apresoline) 10 mg SLOW IVP Q4H PRN PRN Reason: SBP > 180 and HR < 70 Dextrose/Water (D5w) 1,000 mls @ 0 mls/hr IV .Q0M PRN PRN Reason: Hypoglycemia Insulin Glargine 15 units/ (Miscellaneous Medication) 0.15 mls @ 0 mls/hr SC BID [facility] Last Admin: 05/12/19 20:57 Dose: 0.15 mls Insulin Human Lispro (Humalog) 0 units SC .MODERATE SLIDING SC PRN PRN Reason: Moderate Correctional Scale Last Admin: 05/11/19 12:10 Dose: 2 unit Insulin Human Lispro (Humalog) 0 units SC .BEDTIME SLIDING SC PRN PRN Reason: Bedtime Correctional Scale Last Admin: 05/12/19 20:57 Dose: 2 unit Levothyroxine Sodium (Synthroid) 50 mcg PO 0600 [facility] Last Admin: 05/13/19 05:13 Dose: 50 mcg Loratadine (Claritin) 10 mg PO DAILYPRN PRN PRN Reason: Sinus Symptoms Losartan Potassium (Cozaar) 100 mg PO DAILY [facility] Last Admin: 05/12/19 08:34 Dose: 100 mg Lubiprostone (Amitiza) 24 mcg PO DAILY [facility] Last Admin: 05/12/19 10:59 Dose: 24 mcg Metformin HCl (Glucophage Xr) 500 mg PO BID[facility] Last Admin: 05/12/19 17:37 Dose: 500 mg Oxcarbazepine (Trileptal) 600 mg PO HS [facility] Last Admin: 05/12/19 20:35 Dose: 600 mg Saccharomyces Boulardii (Florastor) 250 mg PO DAILY [facility] Last Admin: 05/12/19 08:23 Dose: 250 mg Senna/Docusate Sodium (Senokot S) 2 tab PO BID [facility] Last Admin: 05/12/19 21:05 Dose: Not Given Sertraline HCl (Zoloft) 100 mg PO DAILY [facility] Last Admin: 05/12/19 08:23 Dose: 100 mg Sodium Chloride (Flush - Normal Saline) 10 ml IVF Q12HR [facility] Last Admin: 05/12/19 20:36 Dose: Not Given Sodium Chloride (Flush - Normal Saline) 10 ml IVF PRN PRN PRN Reason: Saline Flush Sodium Chloride ([place] Nasal [place] 0.65%) 0 ml EA NARE QIDPRN PRN PRN Reason: Nasal Congestion Tamsulosin HCl (Flomax) 0.4 mg PO DAILY [facility] Last Admin: 05/12/19 08:23 Dose: 0.4 mg Throat Lozenges (Cepastat Lozenges) 1 pedro luis PO Q2H PRN PRN Reason: Sore Throat Venlafaxine HCl (Effexor Xr) 150 mg PO DAILY [facility] Last Admin: 05/12/19 08:23 Dose: 150 mg Verapamil HCl (Calan Er) 180 mg PO DAILY [facility] Last Admin: 05/12/19 10:59 Dose: 180 mg
[2019-05-13] MEDS: Carbidopa/Levodopa 25-250 mg Tablet PO SCH ×3 (12:18→20:32)
[2019-05-13 14:17] VITALS: BMI 32.8
[2019-05-13] MEDS: metFORMIN XR 500 MG TAB PO SCH ×2 (14:19→17:43)
[2019-05-13] MEDS: Saccharomyces boulardii 250 MG CAP PO SCH (14:19)
[2019-05-13] MEDS: Docusate 100 MG CAP PO SCH ×2 (14:19→20:31)
[2019-05-13] MEDS: Cefdinir 300 MG CAP PO SCH ×2 (14:19→20:31)
[2019-05-13] MEDS: Insulin Glargine 15 UNITS in Pre-Filled Syringe 1 EACH SC SCH ×2 (14:19→21:28)
[2019-05-13] MEDS: Famotidine 20 MG TAB PO SCH ×2 (14:19→20:31)
[2019-05-13] MEDS: Losartan 25 MG TAB PO SCH (14:19)
[2019-05-13] MEDS: Aspirin 81 mg Enteric Coated Tablet PO SCH (14:19)
[2019-05-13] MEDS: Lubiprostone 24 MCG CAP PO SCH (14:19)
[2019-05-13] MEDS: Senokot S 8.6-50 MG TAB PO SCH ×2 (14:19→20:31)
[2019-05-13] MEDS: Venlafaxine HCl XR 150 MG CAP PO SCH (14:20)
[2019-05-13] MEDS: Tamsulosin HCl 0.4 MG CAP PO SCH (14:20)
--- NOTE | 2019-05-13 16:07 | PRG ---
DATE OF SERVICE: 05/13/2019 I am seeing the patient today in room 4438 at [facility]. His vital signs are stable. He is afebrile. O2 sats are good. Blood pressure is fine. He is comfortable. His blood sugars are still running in the 180s to low 200s. Microbiology came up. Urine culture negative when he came in on the , negative during the cysto on the , and blood cultures both negative, so it does not appear that he was septic. I did my best today to get him scheduled for ESWL as the truck was here today and we went ahead and did coag on and they were normal. Platelet function assay yesterday was normal. The patient was willing to do it. The problem was that the OR was too booked up to do that, so unfortunately, we will do this next Saturday. I would like for him to stay off nonsteroidals, aspirin, and blood thinners until we do that. I think, he may be to be going home or possibly to a nursing center and I would like to be sure when he does leave that he is not going on any aspirin, nonsteroidals, or blood thinners of any kind. I would like him to stay on a low dose of an oral antibiotic while the stent is in. Currently, he is on Omnicef and that would be fine. He probably does not need to be on it twice a day, but could probably just be on it for the next two weeks once a day that will coverage during his shockwave therapy. I have talked with Mr. Arevalo about this and he is willing to do it. I will come by and probably check him tomorrow and be sure nothing else is changed in his care, but otherwise we will look at doing this on an outpatient basis in 7 days. Job ID: [id number]
[2019-05-13] MEDS: HumaLOG 300 UNITS/3 ML VIAL SC PRN (17:43)
[2019-05-13] MEDS: OXcarbazepine 300 MG TAB PO SCH (20:31)
[2019-05-14] MEDS ORDERED: Clopidogrel Bisulfate 75 MG TAB ONE (05:42)
[2019-05-14] MEDS: HumaLOG 300 UNITS/3 ML VIAL SC PRN ×3 (05:47→17:29)
[2019-05-14] MEDS: Levothyroxine Sodium 50 MCG TAB PO SCH (05:47)
[2019-05-14] MEDS: Lubiprostone 24 MCG CAP PO SCH (08:53)
[2019-05-14] MEDS: Venlafaxine HCl XR 150 MG CAP PO SCH (08:53)
[2019-05-14] MEDS: Cefdinir 300 MG CAP PO SCH ×2 (08:53→20:57)
[2019-05-14] MEDS: Carbidopa/Levodopa 25-250 mg Tablet PO SCH ×3 (08:53→20:57)
[2019-05-14] MEDS: Insulin Glargine 15 UNITS in Pre-Filled Syringe 1 EACH SC SCH ×2 (08:53→20:57)
[2019-05-14] MEDS: Losartan 25 MG TAB PO SCH (08:53)
[2019-05-14] MEDS: Saccharomyces boulardii 250 MG CAP PO SCH (08:53)
[2019-05-14] MEDS: Tamsulosin HCl 0.4 MG CAP PO SCH (08:53)
[2019-05-14] MEDS: Enoxaparin Sodium 40 MG/0.4 ML SYRINGE SC SCH (08:54)
[2019-05-14] MEDS: Senokot S 8.6-50 MG TAB PO SCH ×2 (08:54→20:56)
[2019-05-14] MEDS: metFORMIN XR 500 MG TAB PO SCH ×2 (08:54→16:28)
[2019-05-14] MEDS: Docusate 100 MG CAP PO SCH ×2 (08:54→20:57)
[2019-05-14] MEDS: Famotidine 20 MG TAB PO SCH ×2 (08:54→20:57)
--- NOTE | 2019-05-14 11:18 | PDOC.PN ---
- Subjective Encounter Start Date: 05/14/19 Encounter Start Time: 09:40 Patient seen and examined. No new complaints. No overnight events - Objective Resuscitation Status - Order Detail: 05/09/19 00:44 Resuscitation Status Routine Resuscitation Status: FULL: Full Resuscitation MAR Reviewed: Yes Vital Signs & Weight: Vital Signs (12 hours) Temp Pulse Resp BP Pulse Ox 05/14/19 07:47 97.8 F 96 17 191/72 H 94 L 05/14/19 04:00 98.6 F 16 165/85 H 93 L 05/14/19 00:00 98.3 F 92 16 177/75 H 92 L Weight Admit Weight 223 lb 3.2 oz Weight 222 lb 4.8 oz I&O: 05/13/19 05/14/19 05/15/19 06:59 06:59 06:59 Intake Total 1000 Output Total 750 Balance 250 Result Diagrams: 05/11/19 05:21 05/11/19 05:21 Additional Labs: Accuchecks 05/14/19 05/14/19 05/13/19 05:04 02:37 19:23 POC Glucose 180 H 193 H 160 H 05/13/19 05/13/19 16:45 11:46 POC Glucose 167 H 181 H Phys Exam - Physical Examination Constitutional: NAD HEENT: PERRLA, moist MMs, sclera anicteric Neck: no JVD, supple Respiratory: no wheezing, no rales, no rhonchi Cardiovascular: RRR, no significant murmur, no rub Gastrointestinal: soft, non-tender, no distention, positive bowel sounds Musculoskeletal: no edema, pulses present Neurological: non-focal, normal sensation Lymphatic: no nodes Psychiatric: normal affect, A&O x 3 Skin: no rash, normal turgor Dx/Plan (1) Sepsis Code(s): A41.9 - SEPSIS, UNSPECIFIED ORGANISM Status: Acute Comment: (2) UTI (urinary tract infection) Status: Acute (3) Anxiety and depression Code(s): F41.9 - ANXIETY DISORDER, UNSPECIFIED; F32.9 - MAJOR DEPRESSIVE DISORDER, SINGLE EPISODE, UNSPECIFIED Status: Chronic (4) BPH (benign prostatic hyperplasia) Code(s): N40.0 - BENIGN PROSTATIC HYPERPLASIA WITHOUT LOWER URINRY TRACT SYMP Status: Chronic (5) DM2 (diabetes mellitus, type 2) Status: Chronic Comment: (6) HTN (hypertension) Code(s): I10 - ESSENTIAL (PRIMARY) HYPERTENSION Status: Chronic Qualifiers: Comment: (7) Nephrolithiasis Status: Chronic (8) Obesity (BMI 30-39.9) Code(s): E66.9 - OBESITY, UNSPECIFIED Status: Chronic (9) Parkinson disease Code(s): G20 - PARKINSON'S DISEASE Status: Chronic Comment: (10) Schizoaffective disorder Code(s): F25.9 - SCHIZOAFFECTIVE DISORDER, UNSPECIFIED Status: Chronic - Plan cont current plan of care, continue antibiotics * medication reviewed as below * symptomatic treatment * see discharge helga. Review of Systems - Review of Systems ENT: negative: Ear Pain, Ear Discharge, Nose Pain, Nose Discharge, Nose Congestion, Mouth Pain, Mouth Swelling, Throat Pain, Throat Swelling, Other Respiratory: negative: Cough, Dry, Shortness of Breath, Hemoptysis, SOB with Excertion, Pleuritic Pain, Sputum, Wheezing Cardiovascular: negative: chest pain, palpitations, orthopnea, paroxysmal nocturnal dyspnea, edema, light headedness, other Gastrointestinal: negative: Nausea, Vomiting, Abdominal Pain, Diarrhea, Constipation, Melena, Hematochezia, Other Genitourinary: negative: Dysuria, Frequency, Incontinence, Hematuria, Retention , Other Musculoskeletal: negative: Neck Pain, Shoulder Pain, Arm Pain, Back Pain, Hand Pain, Leg Pain, Foot Pain, Other - Medications/Allergies Allergies/Adverse Reactions: Allergies Allergy/AdvReac Type Severity Reaction Status Date / Time No Known Drug Allergies Allergy Unknown Verified 03/05/19 02:00 Medications: Current Medications Acetaminophen (Tylenol) 650 mg PO Q4H PRN PRN Reason: Headache/Fever/Mild Pain (1-3) Last Admin: 05/12/19 20:35 Dose: 650 mg Hydrocodone Bitart/Acetaminophen ([place] 5/325) 1 tab PO Q4H PRN PRN Reason: Moderate Pain (4-6) Artificial Tears (Tears Naturale) 2 drop EA EYE PRN PRN PRN Reason: Dry Eyes Bisacodyl (Dulcolax) 10 mg [place] DAILYPRN PRN PRN Reason: Constipation Carbidopa/Levodopa (Sinemet 25-250) 1 tab PO TID KEMAL Last Admin: 05/14/19 08:53 Dose: 1 tab Cefdinir (Omnicef) 300 mg PO BID [facility] Last Admin: 05/14/19 08:53 Dose: 300 mg Dextrose/Water (Dextrose 50%) 25 gm SLOW IVP PRN PRN PRN Reason: Hypoglycemia Docusate Sodium (Colace) 100 mg PO BID [facility] Last Admin: 05/14/19 08:54 Dose: 100 mg Enoxaparin Sodium (Lovenox) 40 mg SC 0900 [facility] Last Admin: 05/14/19 08:54 Dose: 40 mg Famotidine (Pepcid) 20 mg PO BID [facility] Last Admin: 05/14/19 08:54 Dose: 20 mg Glucagon (Glucagon) 1 mg IM PRN PRN PRN Reason: Hypoglycemia Guaifenesin (Robitussin Sf) 200 mg PO Q4H PRN PRN Reason: Cough Guaifenesin/Dextromethorphan (Robitussin Dm) 15 ml PO Q4H PRN PRN Reason: Cough Hydralazine HCl (Apresoline) 10 mg SLOW IVP Q4H PRN PRN Reason: SBP > 180 and HR < 70 Dextrose/Water (D5w) 1,000 mls @ 0 mls/hr IV .Q0M PRN PRN Reason: Hypoglycemia Insulin Glargine 15 units/ (Miscellaneous Medication) 0.15 mls @ 0 mls/hr SC BID [facility] Last Admin: 05/14/19 08:53 Dose: 0.15 mls Insulin Human Lispro (Humalog) 0 units SC .MODERATE SLIDING SC PRN PRN Reason: Moderate Correctional Scale Last Admin: 05/14/19 05:47 Dose: 2 unit Insulin Human Lispro (Humalog) 0 units SC .BEDTIME SLIDING SC PRN PRN Reason: Bedtime Correctional Scale Last Admin: 05/12/19 20:57 Dose: 2 unit Levothyroxine Sodium (Synthroid) 50 mcg PO 0600 [facility] Last Admin: 05/14/19 05:47 Dose: 50 mcg Loratadine (Claritin) 10 mg PO DAILYPRN PRN PRN Reason: Sinus Symptoms Losartan Potassium (Cozaar) 100 mg PO DAILY [facility] Last Admin: 05/14/19 08:53 Dose: 100 mg Lubiprostone (Amitiza) 24 mcg PO DAILY [facility] Last Admin: 05/14/19 08:53 Dose: 24 mcg Metformin HCl (Glucophage Xr) 500 mg PO BID-WM [facility] Last Admin: 05/14/19 08:54 Dose: 500 mg Oxcarbazepine (Trileptal) 600 mg PO HS [facility] Last Admin: 05/13/19 20:31 Dose: 600 mg Saccharomyces Boulardii (Florastor) 250 mg PO DAILY [facility] Last Admin: 05/14/19 08:53 Dose: 250 mg Senna/Docusate Sodium (Senokot S) 2 tab PO BID [facility] Last Admin: 05/14/19 08:54 Dose: 2 tab Sertraline HCl (Zoloft) 100 mg PO DAILY [facility] Last Admin: 05/14/19 08:53 Dose: 100 mg Sodium Chloride (Flush - Normal Saline) 10 ml IVF Q12HR [facility] Last Admin: 05/14/19 08:55 Dose: Not Given Sodium Chloride (Flush - Normal Saline) 10 ml IVF PRN PRN PRN Reason: Saline Flush Sodium Chloride ([place] Nasal [place] 0.65%) 0 ml EA NARE QIDPRN PRN PRN Reason: Nasal Congestion Tamsulosin HCl (Flomax) 0.4 mg PO DAILY [facility] Last Admin: 05/14/19 08:53 Dose: 0.4 mg Throat Lozenges (Cepastat Lozenges) 1 pedro luis PO Q2H PRN PRN Reason: Sore Throat Venlafaxine HCl (Effexor Xr) 150 mg PO DAILY [facility] Last Admin: 05/14/19 08:53 Dose: 150 mg Verapamil HCl (Calan Er) 180 mg PO DAILY [facility] Last Admin: 05/14/19 08:53 Dose: 180 mg
--- NOTE | 2019-05-14 12:18 | DIS ---
DATE OF ADMISSION: 05/08/2019 DATE OF DISCHARGE: 05/14/2019 DISCHARGE DISPOSITION: Home with home health. PRIMARY DISCHARGE DIAGNOSES: 1. Sepsis. 2. Urinary tract infection. 3. Nephrolithiasis, status post ureteric stent placement. SECONDARY DISCHARGE DIAGNOSES: 1. Schizoaffective affective disorder. 2. Parkinson disease. 3. Obesity. 4. Nephrolithiasis. 5. Hypertension. 6. Diabetes type 2. 7. Benign enlargement of prostate. 8. Frequent falls. 9. Anxiety and depression. PRIMARY PROCEDURE AND OPERATION: Dr. Romero did a cystoscopy and stent placement. RADIOLOGICAL INVESTIGATION: Cervical spine CT scan, brain CT scan, ankle x-ray, chest x-ray, and retrograde pyelogram. SIGNIFICANT LABORATORY DATA: Hemoglobin 13.1. INR 1.0. Creatinine 0.85. Electrolytes normal. LFT normal. Urinalysis suggestive of UTI. Urine culture negative. Blood culture negative. DISCHARGE MEDICATIONS: 1. Carbidopa/levodopa 1 tablet t.i.d. 2. Anafranil 75 mg p.o. b.i.d. 3. Colace 100 mg b.i.d. 4. Hydrochlorothiazide 25 mg p.o. daily. 5. Levemir insulin 15 units subcu b.i.d. 6. Levothyroxine 50 mcg p.o. daily. 7. Losartan 100 mg daily. 8. Amitiza 24 mcg daily. 9. Metformin 500 mg p.o. b.i.d. 10. Olanzapine 5 mg p.o. at bedtime. 11. Oxcarbazepine 600 mg p.o. at bedtime. 12. Zoloft 100 mg p.o. daily. 13. Flomax 0.4 mg daily. 14. Venlafaxine 150 mg daily. 15. Lipitor 20 mg p.o. at bedtime. 16. Omnicef 300 mg b.i.d. for 10 days. 17. Verapamil ER 180 mg p.o. daily. CONTRAINDICATION: None. CODE STATUS: Full code. 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 Dr. Nick Garcia was consulted while in hospital. 2. Dr. Linwood Michael, was also following while in hospital. TEST RESULTS PENDING ON DISCHARGE: None. ALLERGIES: NO KNOWN DRUG ALLERGIES. DISCHARGE PLAN: Posthospital, the patient will follow up with Dr. Linwood Michael in 1 week for outpatient procedure for nephrolithiasis. HOSPITAL COURSE: A 68-year-old male with above-mentioned medical problem, who was admitted by Dr. Tucker, please see his H and P for further details. This patient has underlying advanced Parkinson disease and he has frequent falls. This patient was evaluated by Neurology for his Parkinson disease and recommended to continue levodopa/carbidopa. The patient was also having urinary tract infection and that is why we consulted Dr. Romero because the patient was having nephrolithiasis. Dr. Romero did cystoscopy and stent placement. Subsequently, Dr. Linwood Michael was following this patient. He was trying to do treatment for nephrolithiasis with extracorporeal shockwave lithotripsy, but it was not done and that is why he will do it after 1 week. This patient has frequent falls. He has advanced Parkinson disease and he is unstable on his feet. He has Saturday to Saturday caregiver for 12 hours. He does not have any significant help during evening time as well as on weekend. We tried to convince him to let him go to residential home, but this patient is not willing to go to residential home, rather he wants to go home and continue with his caregiver. This patient is at high risk for recurrent admission from fall-related injury. This patient understands the risk associated with a fall, but he is not changing his mind and he rather preferred to go home with a caregiver. Job ID: [id number]
[2019-05-14] MEDS: OXcarbazepine 300 MG TAB PO SCH (20:56)
[2019-05-15] MEDS: Levothyroxine Sodium 50 MCG TAB PO SCH (06:13)
[2019-05-15] MEDS: metFORMIN XR 500 MG TAB PO SCH ×2 (08:57→16:55)
[2019-05-15] MEDS: Venlafaxine HCl XR 150 MG CAP PO SCH (08:58)
[2019-05-15] MEDS: Losartan 25 MG TAB PO SCH (08:58)
[2019-05-15] MEDS: Tamsulosin HCl 0.4 MG CAP PO SCH (08:58)
[2019-05-15] MEDS: Famotidine 20 MG TAB PO SCH ×2 (08:58→21:19)
[2019-05-15] MEDS: Senokot S 8.6-50 MG TAB PO SCH ×2 (08:58→21:20)
[2019-05-15] MEDS: Saccharomyces boulardii 250 MG CAP PO SCH (08:58)
[2019-05-15] MEDS: Lubiprostone 24 MCG CAP PO SCH (08:58)
[2019-05-15] MEDS: Docusate 100 MG CAP PO SCH ×2 (08:58→21:19)
[2019-05-15] MEDS: Cefdinir 300 MG CAP PO SCH ×2 (08:58→21:19)
[2019-05-15] MEDS: Carbidopa/Levodopa 25-250 mg Tablet PO SCH ×3 (08:59→21:19)
[2019-05-15] MEDS: Enoxaparin Sodium 40 MG/0.4 ML SYRINGE SC SCH (08:59)
[2019-05-15] MEDS: Insulin Glargine 15 UNITS in Pre-Filled Syringe 1 EACH SC SCH ×2 (09:11→21:20)
--- NOTE | 2019-05-15 11:45 | PDOC.PN ---
- Subjective Encounter Start Date: 05/15/19 Encounter Start Time: 10:10 Patient seen and examined. No new complaints. No overnight events - Objective Resuscitation Status - Order Detail: 05/09/19 00:44 Resuscitation Status Routine Resuscitation Status: FULL: Full Resuscitation MAR Reviewed: Yes Vital Signs & Weight: Vital Signs (12 hours) Temp Pulse Resp BP Pulse Ox 05/15/19 08:51 94 L 05/15/19 07:42 97.8 F 97 18 153/79 H 94 L 05/15/19 04:00 97.8 F 95 18 170/84 H 93 L 05/15/19 00:00 98.3 F 99 18 165/91 H 92 L Weight Admit Weight 223 lb 3.2 oz Weight 222 lb 4.8 oz I&O: 05/14/19 05/15/19 05/16/19 06:59 06:59 06:59 Intake Total 1950 Balance 1950 Result Diagrams: 05/11/19 05:21 05/11/19 05:21 Additional Labs: Accuchecks 05/15/19 05/14/19 05/14/19 04:52 20:57 17:09 POC Glucose 158 H 220 H 227 H 05/14/19 12:35 POC Glucose 237 H Phys Exam - Physical Examination Constitutional: NAD HEENT: PERRLA, moist MMs, sclera anicteric Neck: no JVD, supple Respiratory: no wheezing, no rales, no rhonchi Cardiovascular: RRR, no significant murmur, no rub Gastrointestinal: soft, non-tender, no distention Musculoskeletal: no edema, pulses present Neurological: non-focal parkinsonian tremor Lymphatic: no nodes Psychiatric: normal affect, A&O x 3 Skin: no rash, normal turgor Dx/Plan (1) Sepsis Code(s): A41.9 - SEPSIS, UNSPECIFIED ORGANISM Status: Acute Comment: (2) UTI (urinary tract infection) Status: Acute (3) Anxiety and depression Code(s): F41.9 - ANXIETY DISORDER, UNSPECIFIED; F32.9 - MAJOR DEPRESSIVE DISORDER, SINGLE EPISODE, UNSPECIFIED Status: Chronic (4) BPH (benign prostatic hyperplasia) Code(s): N40.0 - BENIGN PROSTATIC HYPERPLASIA WITHOUT LOWER URINRY TRACT SYMP Status: Chronic (5) DM2 (diabetes mellitus, type 2) Status: Chronic Comment: (6) HTN (hypertension) Code(s): I10 - ESSENTIAL (PRIMARY) HYPERTENSION Status: Chronic Qualifiers: Comment: (7) Nephrolithiasis Status: Chronic (8) Obesity (BMI 30-39.9) Code(s): E66.9 - OBESITY, UNSPECIFIED Status: Chronic (9) Parkinson disease Code(s): G20 - PARKINSON'S DISEASE Status: Chronic Comment: (10) Schizoaffective disorder Code(s): F25.9 - SCHIZOAFFECTIVE DISORDER, UNSPECIFIED Status: Chronic - Plan cont current plan of care, 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 Review of Systems - Review of Systems ENT: negative: Ear Pain, Ear Discharge, Nose Pain, Nose Discharge, Nose Congestion, Mouth Pain, Mouth Swelling, Throat Pain, Throat Swelling, Other Respiratory: negative: Cough, Dry, Shortness of Breath, Hemoptysis, SOB with Excertion, Pleuritic Pain, Sputum, Wheezing Cardiovascular: negative: chest pain, palpitations, orthopnea, paroxysmal nocturnal dyspnea, edema, light headedness, other Gastrointestinal: negative: Nausea, Vomiting, Abdominal Pain, Diarrhea, Constipation, Melena, Hematochezia, Other Genitourinary: negative: Dysuria, Frequency, Incontinence, Hematuria, Retention , Other Musculoskeletal: negative: Neck Pain, Shoulder Pain, Arm Pain, Back Pain, Hand Pain, Leg Pain, Foot Pain, Other - Medications/Allergies Allergies/Adverse Reactions: Allergies Allergy/AdvReac Type Severity Reaction Status Date / Time No Known Drug Allergies Allergy Unknown Verified 03/05/19 02:00 Medications: Current Medications Acetaminophen (Tylenol) 650 mg PO Q4H PRN PRN Reason: Headache/Fever/Mild Pain (1-3) Last Admin: 05/12/19 20:35 Dose: 650 mg Hydrocodone Bitart/Acetaminophen ([place] 5/325) 1 tab PO Q4H PRN PRN Reason: Moderate Pain (4-6) Artificial Tears (Tears Naturale) 2 drop EA EYE PRN PRN PRN Reason: Dry Eyes Bisacodyl (Dulcolax) 10 mg [place] DAILYPRN PRN PRN Reason: Constipation Carbidopa/Levodopa (Sinemet 25-250) 1 tab PO TID KEMAL Last Admin: 05/15/19 08:59 Dose: 1 tab Cefdinir (Omnicef) 300 mg PO BID [facility] Last Admin: 05/15/19 08:58 Dose: 300 mg Dextrose/Water (Dextrose 50%) 25 gm SLOW IVP PRN PRN PRN Reason: Hypoglycemia Docusate Sodium (Colace) 100 mg PO BID [facility] Last Admin: 05/15/19 08:58 Dose: 100 mg Enoxaparin Sodium (Lovenox) 40 mg SC 0900 [facility] Last Admin: 05/15/19 08:59 Dose: 40 mg Famotidine (Pepcid) 20 mg PO BID [facility] Last Admin: 05/15/19 08:58 Dose: 20 mg Glucagon (Glucagon) 1 mg IM PRN PRN PRN Reason: Hypoglycemia Guaifenesin (Robitussin Sf) 200 mg PO Q4H PRN PRN Reason: Cough Guaifenesin/Dextromethorphan (Robitussin Dm) 15 ml PO Q4H PRN PRN Reason: Cough Hydralazine HCl (Apresoline) 10 mg SLOW IVP Q4H PRN PRN Reason: SBP > 180 and HR < 70 Dextrose/Water (D5w) 1,000 mls @ 0 mls/hr IV .Q0M PRN PRN Reason: Hypoglycemia Insulin Glargine 15 units/ (Miscellaneous Medication) 0.15 mls @ 0 mls/hr SC BID [facility] Last Admin: 05/15/19 09:11 Dose: 0.15 mls Insulin Human Lispro (Humalog) 0 units SC .MODERATE SLIDING SC PRN PRN Reason: Moderate Correctional Scale Last Admin: 05/14/19 17:29 Dose: 4 unit Insulin Human Lispro (Humalog) 0 units SC .BEDTIME SLIDING SC PRN PRN Reason: Bedtime Correctional Scale Last Admin: 05/12/19 20:57 Dose: 2 unit Levothyroxine Sodium (Synthroid) 50 mcg PO 0600 [facility] Last Admin: 05/15/19 06:13 Dose: 50 mcg Loratadine (Claritin) 10 mg PO DAILYPRN PRN PRN Reason: Sinus Symptoms Losartan Potassium (Cozaar) 100 mg PO DAILY [facility] Last Admin: 05/15/19 08:58 Dose: 100 mg Lubiprostone (Amitiza) 24 mcg PO DAILY [facility] Last Admin: 05/15/19 08:58 Dose: 24 mcg Metformin HCl (Glucophage Xr) 500 mg PO BID-WM [facility] Last Admin: 05/15/19 08:57 Dose: 500 mg Oxcarbazepine (Trileptal) 600 mg PO HS [facility] Last Admin: 05/14/19 20:56 Dose: 600 mg Saccharomyces Boulardii (Florastor) 250 mg PO DAILY [facility] Last Admin: 05/15/19 08:58 Dose: 250 mg Senna/Docusate Sodium (Senokot S) 2 tab PO BID [facility] Last Admin: 05/15/19 08:58 Dose: 2 tab Sertraline HCl (Zoloft) 100 mg PO DAILY [facility] Last Admin: 05/15/19 08:58 Dose: 100 mg Sodium Chloride (Flush - Normal Saline) 10 ml IVF Q12HR [facility] Last Admin: 05/15/19 08:59 Dose: Not Given Sodium Chloride (Flush - Normal Saline) 10 ml IVF PRN PRN PRN Reason: Saline Flush Sodium Chloride ([place] Nasal [place] 0.65%) 0 ml EA NARE QIDPRN PRN PRN Reason: Nasal Congestion Tamsulosin HCl (Flomax) 0.4 mg PO DAILY [facility] Last Admin: 05/15/19 08:58 Dose: 0.4 mg Throat Lozenges (Cepastat Lozenges) 1 pedro luis PO Q2H PRN PRN Reason: Sore Throat Venlafaxine HCl (Effexor Xr) 150 mg PO DAILY [facility] Last Admin: 05/15/19 08:58 Dose: 150 mg Verapamil HCl (Calan Er) 180 mg PO DAILY [facility] Last Admin: 05/15/19 08:57 Dose: 180 mg
[2019-05-15] MEDS: HumaLOG 300 UNITS/3 ML VIAL SC PRN ×2 (13:22→16:55)
[2019-05-15] MEDS ORDERED: Clopidogrel Bisulfate 75 MG TAB ONE (14:19)
[2019-05-15] MEDS: OXcarbazepine 300 MG TAB PO SCH (21:20)
[2019-05-16] MEDS: HumaLOG 300 UNITS/3 ML VIAL SC PRN ×3 (05:44→17:19)
[2019-05-16] MEDS: Levothyroxine Sodium 50 MCG TAB PO SCH (05:44)
[2019-05-16] MEDS: Losartan 25 MG TAB PO SCH (07:47)
[2019-05-16] MEDS: Enoxaparin Sodium 40 MG/0.4 ML SYRINGE SC SCH (07:49)
[2019-05-16] MEDS: Lubiprostone 24 MCG CAP PO SCH (07:50)
[2019-05-16] MEDS: Cefdinir 300 MG CAP PO SCH ×2 (07:50→20:29)
[2019-05-16] MEDS: Famotidine 20 MG TAB PO SCH ×2 (07:50→20:29)
[2019-05-16] MEDS: Tamsulosin HCl 0.4 MG CAP PO SCH (07:50)
[2019-05-16] MEDS: metFORMIN XR 500 MG TAB PO SCH ×2 (07:52→17:19)
[2019-05-16] MEDS: Saccharomyces boulardii 250 MG CAP PO SCH (07:55)
[2019-05-16] MEDS: Venlafaxine HCl XR 150 MG CAP PO SCH (07:55)
[2019-05-16] MEDS: Senokot S 8.6-50 MG TAB PO SCH ×2 (07:55→20:30)
[2019-05-16] MEDS: Carbidopa/Levodopa 25-250 mg Tablet PO SCH ×3 (07:57→20:29)
[2019-05-16] MEDS: Docusate 100 MG CAP PO SCH ×2 (07:59→20:29)
[2019-05-16] MEDS: Insulin Glargine 15 UNITS in Pre-Filled Syringe 1 EACH SC SCH ×2 (08:01→20:29)
--- NOTE | 2019-05-16 10:46 | PDOC.PN ---
- Subjective Encounter Start Date: 05/16/19 Encounter Start Time: 10:00 Patient seen and examined. No new complaints. No overnight events - Objective Resuscitation Status - Order Detail: 05/09/19 00:44 Resuscitation Status Routine Resuscitation Status: FULL: Full Resuscitation MAR Reviewed: Yes Vital Signs & Weight: Vital Signs (12 hours) Temp Pulse Resp BP Pulse Ox 05/16/19 07:55 98.1 F 93 17 173/83 H 94 L 05/16/19 07:42 98.1 F 93 20 173/83 H 94 L 05/16/19 07:41 94 L 05/16/19 04:00 97.5 F L 92 16 149/76 H 94 L 05/16/19 00:00 98.0 F 93 16 152/77 H 92 L Weight Admit Weight 223 lb 3.2 oz Weight 222 lb 4.8 oz I&O: 05/15/19 05/16/19 05/17/19 06:59 06:59 06:59 Intake Total 1950 1040 Balance 1950 1040 Result Diagrams: 05/11/19 05:21 05/11/19 05:21 Additional Labs: Accuchecks 05/16/19 05/15/19 05/15/19 04:57 20:38 15:54 POC Glucose 169 H 142 H 208 H 05/15/19 11:45 POC Glucose 240 H Phys Exam - Physical Examination Constitutional: NAD HEENT: PERRLA, moist MMs, sclera anicteric Neck: no JVD, supple Respiratory: no wheezing, no rales, no rhonchi Cardiovascular: RRR, no significant murmur, no rub Gastrointestinal: soft, non-tender, no distention, positive bowel sounds Musculoskeletal: no edema, pulses present Neurological: non-focal, normal sensation Lymphatic: no nodes Psychiatric: normal affect Skin: no rash, normal turgor Dx/Plan (1) Sepsis Code(s): A41.9 - SEPSIS, UNSPECIFIED ORGANISM Status: Resolved Comment: (2) UTI (urinary tract infection) Status: Acute (3) Anxiety and depression Code(s): F41.9 - ANXIETY DISORDER, UNSPECIFIED; F32.9 - MAJOR DEPRESSIVE DISORDER, SINGLE EPISODE, UNSPECIFIED Status: Chronic (4) BPH (benign prostatic hyperplasia) Code(s): N40.0 - BENIGN PROSTATIC HYPERPLASIA WITHOUT LOWER URINRY TRACT SYMP Status: Chronic (5) DM2 (diabetes mellitus, type 2) Status: Chronic Comment: (6) HTN (hypertension) Code(s): I10 - ESSENTIAL (PRIMARY) HYPERTENSION Status: Chronic Qualifiers: Comment: (7) Nephrolithiasis Status: Chronic (8) Obesity (BMI 30-39.9) Code(s): E66.9 - OBESITY, UNSPECIFIED Status: Chronic (9) Parkinson disease Code(s): G20 - PARKINSON'S DISEASE Status: Chronic Comment: (10) Schizoaffective disorder Code(s): F25.9 - SCHIZOAFFECTIVE DISORDER, UNSPECIFIED Status: Chronic - Plan cont current plan of care, 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 Review of Systems - Review of Systems ENT: negative: Ear Pain, Ear Discharge, Nose Pain, Nose Discharge, Nose Congestion, Mouth Pain, Mouth Swelling, Throat Pain, Throat Swelling, Other Respiratory: negative: Cough, Dry, Shortness of Breath, Hemoptysis, SOB with Excertion, Pleuritic Pain, Sputum, Wheezing Cardiovascular: negative: chest pain, palpitations, orthopnea, paroxysmal nocturnal dyspnea, edema, light headedness, other Gastrointestinal: negative: Nausea, Vomiting, Abdominal Pain, Diarrhea, Constipation, Melena, Hematochezia, Other Genitourinary: negative: Dysuria, Frequency, Incontinence, Hematuria, Retention , Other Musculoskeletal: negative: Neck Pain, Shoulder Pain, Arm Pain, Back Pain, Hand Pain, Leg Pain, Foot Pain, Other - Medications/Allergies Allergies/Adverse Reactions: Allergies Allergy/AdvReac Type Severity Reaction Status Date / Time No Known Drug Allergies Allergy Unknown Verified 03/05/19 02:00 Medications: Current Medications Acetaminophen (Tylenol) 650 mg PO Q4H PRN PRN Reason: Headache/Fever/Mild Pain (1-3) Last Admin: 05/12/19 20:35 Dose: 650 mg Hydrocodone Bitart/Acetaminophen ([place] 5/325) 1 tab PO Q4H PRN PRN Reason: Moderate Pain (4-6) Artificial Tears (Tears Naturale) 2 drop EA EYE PRN PRN PRN Reason: Dry Eyes Bisacodyl (Dulcolax) 10 mg [place] DAILYPRN PRN PRN Reason: Constipation Carbidopa/Levodopa (Sinemet 25-250) 1 tab PO TID [facility] Last Admin: 05/16/19 07:57 Dose: 1 tab Cefdinir (Omnicef) 300 mg PO BID [facility] Last Admin: 05/16/19 07:50 Dose: 300 mg Dextrose/Water (Dextrose 50%) 25 gm SLOW IVP PRN PRN PRN Reason: Hypoglycemia Docusate Sodium (Colace) 100 mg PO BID [facility] Last Admin: 05/16/19 07:59 Dose: 100 mg Enoxaparin Sodium (Lovenox) 40 mg SC 0900 [facility] Last Admin: 05/16/19 07:49 Dose: 40 mg Famotidine (Pepcid) 20 mg PO BID [facility] Last Admin: 05/16/19 07:50 Dose: 20 mg Glucagon (Glucagon) 1 mg IM PRN PRN PRN Reason: Hypoglycemia Guaifenesin (Robitussin Sf) 200 mg PO Q4H PRN PRN Reason: Cough Guaifenesin/Dextromethorphan (Robitussin Dm) 15 ml PO Q4H PRN PRN Reason: Cough Hydralazine HCl (Apresoline) 10 mg SLOW IVP Q4H PRN PRN Reason: SBP > 180 and HR < 70 Dextrose/Water (D5w) 1,000 mls @ 0 mls/hr IV .Q0M PRN PRN Reason: Hypoglycemia Insulin Glargine 15 units/ (Miscellaneous Medication) 0.15 mls @ 0 mls/hr SC BID [facility] Last Admin: 05/16/19 08:01 Dose: 0.15 mls Insulin Human Lispro (Humalog) 0 units SC .MODERATE SLIDING SC PRN PRN Reason: Moderate Correctional Scale Last Admin: 05/16/19 05:44 Dose: 2 unit Insulin Human Lispro (Humalog) 0 units SC .BEDTIME SLIDING SC PRN PRN Reason: Bedtime Correctional Scale Last Admin: 05/12/19 20:57 Dose: 2 unit Levothyroxine Sodium (Synthroid) 50 mcg PO 0600 [facility] Last Admin: 05/16/19 05:44 Dose: 50 mcg Loratadine (Claritin) 10 mg PO DAILYPRN PRN PRN Reason: Sinus Symptoms Losartan Potassium (Cozaar) 100 mg PO DAILY [facility] Last Admin: 05/16/19 07:47 Dose: 100 mg Lubiprostone (Amitiza) 24 mcg PO DAILY [facility] Last Admin: 05/16/19 07:50 Dose: 24 mcg Metformin HCl (Glucophage Xr) 500 mg PO BID[facility] Last Admin: 05/16/19 07:52 Dose: 500 mg Oxcarbazepine (Trileptal) 600 mg PO HS [facility] Last Admin: 05/15/19 21:20 Dose: 600 mg Saccharomyces Boulardii (Florastor) 250 mg PO DAILY [facility] Last Admin: 05/16/19 07:55 Dose: 250 mg Senna/Docusate Sodium (Senokot S) 2 tab PO BID [facility] Last Admin: 05/16/19 07:55 Dose: 2 tab Sertraline HCl (Zoloft) 100 mg PO DAILY [facility] Last Admin: 05/16/19 07:50 Dose: 100 mg Sodium Chloride (Flush - Normal Saline) 10 ml IVF Q12HR [facility] Last Admin: 05/16/19 07:59 Dose: Not Given Sodium Chloride (Flush - Normal Saline) 10 ml IVF PRN PRN PRN Reason: Saline Flush Sodium Chloride ([place] Nasal [place] 0.65%) 0 ml EA NARE QIDPRN PRN PRN Reason: Nasal Congestion Tamsulosin HCl (Flomax) 0.4 mg PO DAILY [facility] Last Admin: 05/16/19 07:50 Dose: 0.4 mg Throat Lozenges (Cepastat Lozenges) 1 pedro luis PO Q2H PRN PRN Reason: Sore Throat Venlafaxine HCl (Effexor Xr) 150 mg PO DAILY [facility] Last Admin: 05/16/19 07:55 Dose: 150 mg Verapamil HCl (Calan Er) 180 mg PO DAILY [facility] Last Admin: 05/16/19 07:56 Dose: 180 mg
[2019-05-16] MEDS: OXcarbazepine 300 MG TAB PO SCH (20:30)
[2019-05-17] MEDS: Levothyroxine Sodium 50 MCG TAB PO SCH (05:37)
[2019-05-17] MEDS: HumaLOG 300 UNITS/3 ML VIAL SC PRN (05:38)
[2019-05-17 07:50] LABS: #Basophils 0.1 thou/uL (0.0-0.2); #Eosinphils 0.7 thou/uL (0.0-0.7); #Lymphocytes 3.4 thou/uL (1.20-3.40); #Monocytes 0.7 thou/uL (0.11-0.59); #Neutrophils 6.4 thou/uL (1.40-6.50); %Basophils 1.2 % (0.0-1.0); %Eosinophils 5.8 % (0.0-10.0); %Monocytes 6.5 % (0.0-10.0); %Neutrophils 56.5 % (42.0-75.0); Hemoglobin 15.5 g/dL (14.0-18.0); Mean Corpuscular HGB CONC 33.9 g/dL (32.0-36.0); Mean Corpuscular Hemoglobin 32.2 pg (27.0-31.0); Mean Corpuscular Volume 95.2 fL (78.0-98.0); Mean Platelet Volume 6.5 fL (7.4-10.4); Platelet Count 364 thou/uL (130-400); RBC Distribution Width 12.5 % (11.5-14.5); Red Blood Cell (RBC) Count 4.81 mill/uL (4.70-6.10); White Blood Cell (WBC) Count 11.3 thou/uL (4.8-10.8)
[2019-05-17 08:06] LABS: Anion Gap 14 mmol/L (10-20); BUN (Urea Nitrogen) 19 mg/dL (8.4-25.7); Calc. Creatinine Clearance 131 mL/min (70-130); Calcium 9.9 mg/dL (7.8-10.44); Carbon Dioxide 24 mmol/L (23-31); Chloride 100 mmol/L (98-107); Estimated GFR-MDRD Greater than 90; Glucose 160 mg/dL (80-115); Potassium 4.2 mmol/L (3.5-5.1); Sodium 134 mmol/L (136-145)
[2019-05-17] MEDS: Insulin Glargine 15 UNITS in Pre-Filled Syringe 1 EACH SC SCH ×2 (08:55→20:26)
[2019-05-17] MEDS: Losartan 25 MG TAB PO SCH (08:56)
[2019-05-17] MEDS: Lubiprostone 24 MCG CAP PO SCH (08:56)
[2019-05-17] MEDS: Saccharomyces boulardii 250 MG CAP PO SCH (08:57)
[2019-05-17] MEDS: Docusate 100 MG CAP PO SCH ×2 (08:57→20:25)
[2019-05-17] MEDS: Carbidopa/Levodopa 25-250 mg Tablet PO SCH ×3 (08:57→20:25)
[2019-05-17] MEDS: Senokot S 8.6-50 MG TAB PO SCH ×2 (08:57→20:26)
[2019-05-17] MEDS: Cefdinir 300 MG CAP PO SCH ×2 (08:57→20:25)
[2019-05-17] MEDS: metFORMIN XR 500 MG TAB PO SCH ×2 (08:57→16:19)
[2019-05-17] MEDS: Famotidine 20 MG TAB PO SCH ×2 (08:58→20:25)
[2019-05-17] MEDS: Tamsulosin HCl 0.4 MG CAP PO SCH (08:58)
[2019-05-17] MEDS: Venlafaxine HCl XR 150 MG CAP PO SCH (08:58)
[2019-05-17] MEDS: Enoxaparin Sodium 40 MG/0.4 ML SYRINGE SC SCH (08:59)
--- NOTE | 2019-05-17 09:15 | PDOC.PN ---
- Subjective Encounter Start Date: 05/17/19 Encounter Start Time: 07:30 Patient seen and examined. No new complaints. No overnight events - Objective Resuscitation Status - Order Detail: 05/09/19 00:44 Resuscitation Status Routine Resuscitation Status: FULL: Full Resuscitation MAR Reviewed: Yes Vital Signs & Weight: Vital Signs (12 hours) Temp Pulse Resp BP Pulse Ox 05/17/19 04:00 97.6 F 92 18 169/83 H 93 L Weight Admit Weight 223 lb 3.2 oz Weight 222 lb 4.8 oz I&O: 05/16/19 05/17/19 05/18/19 06:59 06:59 06:59 Intake Total 1040 1180 Balance 1040 1180 Result Diagrams: 05/17/19 07:24 05/17/19 07:38 Additional Labs: Accuchecks 05/17/19 05/16/19 05/16/19 05:34 20:13 16:55 POC Glucose 161 H 165 H 174 H 05/16/19 12:23 POC Glucose 224 H Phys Exam - Physical Examination Constitutional: NAD HEENT: PERRLA, moist MMs, sclera anicteric Neck: no JVD, supple Respiratory: no wheezing, no rales, no rhonchi Cardiovascular: RRR, no significant murmur, no rub Gastrointestinal: soft, non-tender, no distention, positive bowel sounds Musculoskeletal: no edema, pulses present Neurological: non-focal, normal sensation Lymphatic: no nodes Psychiatric: normal affect Skin: no rash, normal turgor Dx/Plan (1) Sepsis Code(s): A41.9 - SEPSIS, UNSPECIFIED ORGANISM Status: Resolved Comment: (2) UTI (urinary tract infection) Status: Acute (3) Anxiety and depression Code(s): F41.9 - ANXIETY DISORDER, UNSPECIFIED; F32.9 - MAJOR DEPRESSIVE DISORDER, SINGLE EPISODE, UNSPECIFIED Status: Chronic (4) BPH (benign prostatic hyperplasia) Code(s): N40.0 - BENIGN PROSTATIC HYPERPLASIA WITHOUT LOWER URINRY TRACT SYMP Status: Chronic (5) DM2 (diabetes mellitus, type 2) Status: Chronic Comment: (6) HTN (hypertension) Code(s): I10 - ESSENTIAL (PRIMARY) HYPERTENSION Status: Chronic Qualifiers: Comment: (7) Nephrolithiasis Status: Chronic (8) Obesity (BMI 30-39.9) Code(s): E66.9 - OBESITY, UNSPECIFIED Status: Chronic (9) Parkinson disease Code(s): G20 - PARKINSON'S DISEASE Status: Chronic Comment: (10) Schizoaffective disorder Code(s): F25.9 - SCHIZOAFFECTIVE DISORDER, UNSPECIFIED Status: Chronic - 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 Review of Systems - Review of Systems ENT: negative: Ear Pain, Ear Discharge, Nose Pain, Nose Discharge, Nose Congestion, Mouth Pain, Mouth Swelling, Throat Pain, Throat Swelling, Other Respiratory: negative: Cough, Dry, Shortness of Breath, Hemoptysis, SOB with Excertion, Pleuritic Pain, Sputum, Wheezing Cardiovascular: negative: chest pain, palpitations, orthopnea, paroxysmal nocturnal dyspnea, edema, light headedness, other Gastrointestinal: negative: Nausea, Vomiting, Abdominal Pain, Diarrhea, Constipation, Melena, Hematochezia, Other Genitourinary: negative: Dysuria, Frequency, Incontinence, Hematuria, Retention , Other Musculoskeletal: negative: Neck Pain, Shoulder Pain, Arm Pain, Back Pain, Hand Pain, Leg Pain, Foot Pain, Other - Medications/Allergies Allergies/Adverse Reactions: Allergies Allergy/AdvReac Type Severity Reaction Status Date / Time No Known Drug Allergies Allergy Unknown Verified 03/05/19 02:00 Medications: Current Medications Acetaminophen (Tylenol) 650 mg PO Q4H PRN PRN Reason: Headache/Fever/Mild Pain (1-3) Last Admin: 05/12/19 20:35 Dose: 650 mg Hydrocodone Bitart/Acetaminophen ([place] 5/325) 1 tab PO Q4H PRN PRN Reason: Moderate Pain (4-6) Artificial Tears (Tears Naturale) 2 drop EA EYE PRN PRN PRN Reason: Dry Eyes Bisacodyl (Dulcolax) 10 mg [place] DAILYPRN PRN PRN Reason: Constipation Carbidopa/Levodopa (Sinemet 25-250) 1 tab PO TID [facility] Last Admin: 05/17/19 08:57 Dose: 1 tab Cefdinir (Omnicef) 300 mg PO BID [facility] Last Admin: 05/17/19 08:57 Dose: 300 mg Dextrose/Water (Dextrose 50%) 25 gm SLOW IVP PRN PRN PRN Reason: Hypoglycemia Docusate Sodium (Colace) 100 mg PO BID [facility] Last Admin: 05/17/19 08:57 Dose: 100 mg Enoxaparin Sodium (Lovenox) 40 mg SC 0900 [facility] Last Admin: 05/17/19 08:59 Dose: 40 mg Famotidine (Pepcid) 20 mg PO BID [facility] Last Admin: 05/17/19 08:58 Dose: 20 mg Glucagon (Glucagon) 1 mg IM PRN PRN PRN Reason: Hypoglycemia Guaifenesin (Robitussin Sf) 200 mg PO Q4H PRN PRN Reason: Cough Guaifenesin/Dextromethorphan (Robitussin Dm) 15 ml PO Q4H PRN PRN Reason: Cough Hydralazine HCl (Apresoline) 10 mg SLOW IVP Q4H PRN PRN Reason: SBP > 180 and HR < 70 Dextrose/Water (D5w) 1,000 mls @ 0 mls/hr IV .Q0M PRN PRN Reason: Hypoglycemia Insulin Glargine 15 units/ (Miscellaneous Medication) 0.15 mls @ 0 mls/hr SC BID [facility] Last Admin: 05/17/19 08:55 Dose: 0.15 mls Insulin Human Lispro (Humalog) 0 units SC .MODERATE SLIDING SC PRN PRN Reason: Moderate Correctional Scale Last Admin: 05/17/19 05:38 Dose: 2 unit Insulin Human Lispro (Humalog) 0 units SC .BEDTIME SLIDING SC PRN PRN Reason: Bedtime Correctional Scale Last Admin: 05/12/19 20:57 Dose: 2 unit Levothyroxine Sodium (Synthroid) 50 mcg PO 06 [facility] Last Admin: 05/17/19 05:37 Dose: 50 mcg Loratadine (Claritin) 10 mg PO DAILYPRN PRN PRN Reason: Sinus Symptoms Losartan Potassium (Cozaar) 100 mg PO DAILY [facility] Last Admin: 05/17/19 08:56 Dose: 100 mg Lubiprostone (Amitiza) 24 mcg PO DAILY [facility] Last Admin: 05/17/19 08:56 Dose: 24 mcg Metformin HCl (Glucophage Xr) 500 mg PO BID[facility] Last Admin: 05/17/19 08:57 Dose: 500 mg Oxcarbazepine (Trileptal) 600 mg PO HS [facility] Last Admin: 05/16/19 20:30 Dose: 600 mg Saccharomyces Boulardii (Florastor) 250 mg PO DAILY [facility] Last Admin: 05/17/19 08:57 Dose: 250 mg Senna/Docusate Sodium (Senokot S) 2 tab PO BID [facility] Last Admin: 05/17/19 08:57 Dose: 2 tab Sertraline HCl (Zoloft) 100 mg PO DAILY [facility] Last Admin: 05/17/19 08:58 Dose: 100 mg Sodium Chloride (Flush - Normal Saline) 10 ml IVF Q12HR [facility] Last Admin: 05/17/19 08:59 Dose: Not Given Sodium Chloride (Flush - Normal Saline) 10 ml IVF PRN PRN PRN Reason: Saline Flush Sodium Chloride ([place] Nasal [place] 0.65%) 0 ml EA NARE QIDPRN PRN PRN Reason: Nasal Congestion Tamsulosin HCl (Flomax) 0.4 mg PO DAILY [facility] Last Admin: 05/17/19 08:58 Dose: 0.4 mg Throat Lozenges (Cepastat Lozenges) 1 pedro luis PO Q2H PRN PRN Reason: Sore Throat Venlafaxine HCl (Effexor Xr) 150 mg PO DAILY [facility] Last Admin: 05/17/19 08:58 Dose: 150 mg Verapamil HCl (Calan Er) 180 mg PO DAILY [facility] Last Admin: 05/17/19 08:58 Dose: 180 mg
[2019-05-17] MEDS: OXcarbazepine 300 MG TAB PO SCH (20:26)
[2019-05-18] MEDS: Levothyroxine Sodium 50 MCG TAB PO SCH (05:53)
[2019-05-18] MEDS: HumaLOG 300 UNITS/3 ML VIAL SC PRN (05:54)
[2019-05-18] MEDS: Senokot S 8.6-50 MG TAB PO SCH (08:13)
[2019-05-18] MEDS: Cefdinir 300 MG CAP PO SCH (08:13)
[2019-05-18] MEDS: Lubiprostone 24 MCG CAP PO SCH (08:14)
[2019-05-18] MEDS: Losartan 25 MG TAB PO SCH (08:14)
[2019-05-18] MEDS: Carbidopa/Levodopa 25-250 mg Tablet PO SCH ×2 (08:14→16:56)
[2019-05-18] MEDS: Venlafaxine HCl XR 150 MG CAP PO SCH (08:15)
[2019-05-18] MEDS: Famotidine 20 MG TAB PO SCH (08:15)
[2019-05-18] MEDS: Tamsulosin HCl 0.4 MG CAP PO SCH (08:15)
[2019-05-18] MEDS: Saccharomyces boulardii 250 MG CAP PO SCH (08:15)
[2019-05-18] MEDS: metFORMIN XR 500 MG TAB PO SCH ×2 (08:15→16:56)
[2019-05-18] MEDS: Docusate 100 MG CAP PO SCH (08:15)
[2019-05-18] MEDS: Enoxaparin Sodium 40 MG/0.4 ML SYRINGE SC SCH (08:16)
[2019-05-18] MEDS: Insulin Glargine 15 UNITS in Pre-Filled Syringe 1 EACH SC SCH (08:31)
--- NOTE | 2019-05-18 11:21 | PDOC.PN ---
- Subjective Encounter Start Date: 05/18/19 Encounter Start Time: 07:50 Patient seen and examined. No new complaints. No overnight events - Objective Resuscitation Status - Order Detail: 05/09/19 00:44 Resuscitation Status Routine Resuscitation Status: FULL: Full Resuscitation MAR Reviewed: Yes Vital Signs & Weight: Vital Signs (12 hours) Temp Pulse Resp BP Pulse Ox 05/18/19 08:36 97.8 F 79 16 154/69 H 96 05/18/19 04:00 97.9 F 86 18 150/79 H 95 Weight Admit Weight 223 lb 3.2 oz Weight 222 lb 4.8 oz I&O: 05/17/19 05/18/19 05/19/19 06:59 06:59 06:59 Intake Total 1180 980 Balance 1180 980 Result Diagrams: 05/17/19 07:24 05/17/19 07:38 Additional Labs: Accuchecks 05/18/19 05/17/19 05/17/19 04:37 20:32 16:26 POC Glucose 155 H 170 H 166 H 05/17/19 11:57 POC Glucose 189 H Phys Exam - Physical Examination Constitutional: NAD HEENT: PERRLA, moist MMs, sclera anicteric Neck: no JVD, supple Respiratory: no wheezing, no rales, no rhonchi Cardiovascular: RRR, no significant murmur, no rub Gastrointestinal: soft, non-tender, no distention, positive bowel sounds Musculoskeletal: no edema, pulses present Lymphatic: no nodes Psychiatric: normal affect Skin: no rash, normal turgor Dx/Plan (1) Sepsis Code(s): A41.9 - SEPSIS, UNSPECIFIED ORGANISM Status: Resolved Comment: (2) UTI (urinary tract infection) Status: Acute (3) Anxiety and depression Code(s): F41.9 - ANXIETY DISORDER, UNSPECIFIED; F32.9 - MAJOR DEPRESSIVE DISORDER, SINGLE EPISODE, UNSPECIFIED Status: Chronic (4) BPH (benign prostatic hyperplasia) Code(s): N40.0 - BENIGN PROSTATIC HYPERPLASIA WITHOUT LOWER URINRY TRACT SYMP Status: Chronic (5) DM2 (diabetes mellitus, type 2) Status: Chronic Comment: (6) HTN (hypertension) Code(s): I10 - ESSENTIAL (PRIMARY) HYPERTENSION Status: Chronic Qualifiers: Comment: (7) Nephrolithiasis Status: Chronic (8) Obesity (BMI 30-39.9) Code(s): E66.9 - OBESITY, UNSPECIFIED Status: Chronic (9) Parkinson disease Code(s): G20 - PARKINSON'S DISEASE Status: Chronic Comment: (10) Schizoaffective disorder Code(s): F25.9 - SCHIZOAFFECTIVE DISORDER, UNSPECIFIED Status: Chronic - 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 Review of Systems - Review of Systems ENT: negative: Ear Pain, Ear Discharge, Nose Pain, Nose Discharge, Nose Congestion, Mouth Pain, Mouth Swelling, Throat Pain, Throat Swelling, Other Respiratory: negative: Cough, Dry, Shortness of Breath, Hemoptysis, SOB with Excertion, Pleuritic Pain, Sputum, Wheezing Cardiovascular: negative: chest pain, palpitations, orthopnea, paroxysmal nocturnal dyspnea, edema, light headedness, other Gastrointestinal: negative: Nausea, Vomiting, Abdominal Pain, Diarrhea, Constipation, Melena, Hematochezia, Other Genitourinary: negative: Dysuria, Frequency, Incontinence, Hematuria, Retention , Other Musculoskeletal: negative: Neck Pain, Shoulder Pain, Arm Pain, Back Pain, Hand Pain, Leg Pain, Foot Pain, Other - Medications/Allergies Allergies/Adverse Reactions: Allergies Allergy/AdvReac Type Severity Reaction Status Date / Time No Known Drug Allergies Allergy Unknown Verified 03/05/19 02:00 Medications: Current Medications Acetaminophen (Tylenol) 650 mg PO Q4H PRN PRN Reason: Headache/Fever/Mild Pain (1-3) Last Admin: 05/12/19 20:35 Dose: 650 mg Hydrocodone Bitart/Acetaminophen ([place] 5/325) 1 tab PO Q4H PRN PRN Reason: Moderate Pain (4-6) Artificial Tears (Tears Naturale) 2 drop EA EYE PRN PRN PRN Reason: Dry Eyes Bisacodyl (Dulcolax) 10 mg [place] DAILYPRN PRN PRN Reason: Constipation Carbidopa/Levodopa (Sinemet 25-250) 1 tab PO TID [facility] Last Admin: 05/18/19 08:14 Dose: 1 tab Cefdinir (Omnicef) 300 mg PO BID [facility] Last Admin: 05/18/19 08:13 Dose: 300 mg Dextrose/Water (Dextrose 50%) 25 gm SLOW IVP PRN PRN PRN Reason: Hypoglycemia Docusate Sodium (Colace) 100 mg PO BID [facility] Last Admin: 05/18/19 08:15 Dose: 100 mg Enoxaparin Sodium (Lovenox) 40 mg SC 0900 [facility] Last Admin: 05/18/19 08:16 Dose: 40 mg Famotidine (Pepcid) 20 mg PO BID [facility] Last Admin: 05/18/19 08:15 Dose: 20 mg Glucagon (Glucagon) 1 mg IM PRN PRN PRN Reason: Hypoglycemia Guaifenesin (Robitussin Sf) 200 mg PO Q4H PRN PRN Reason: Cough Guaifenesin/Dextromethorphan (Robitussin Dm) 15 ml PO Q4H PRN PRN Reason: Cough Hydralazine HCl (Apresoline) 10 mg SLOW IVP Q4H PRN PRN Reason: SBP > 180 and HR < 70 Dextrose/Water (D5w) 1,000 mls @ 0 mls/hr IV .Q0M PRN PRN Reason: Hypoglycemia Insulin Glargine 15 units/ (Miscellaneous Medication) 0.15 mls @ 0 mls/hr SC BID [facility] Last Admin: 05/18/19 08:31 Dose: 0.15 mls Insulin Human Lispro (Humalog) 0 units SC .MODERATE SLIDING SC PRN PRN Reason: Moderate Correctional Scale Last Admin: 05/18/19 05:54 Dose: 2 unit Insulin Human Lispro (Humalog) 0 units SC .BEDTIME SLIDING SC PRN PRN Reason: Bedtime Correctional Scale Last Admin: 05/12/19 20:57 Dose: 2 unit Levothyroxine Sodium (Synthroid) 50 mcg PO 0600 [facility] Last Admin: 05/18/19 05:53 Dose: 50 mcg Loratadine (Claritin) 10 mg PO DAILYPRN PRN PRN Reason: Sinus Symptoms Losartan Potassium (Cozaar) 100 mg PO DAILY [facility] Last Admin: 05/18/19 08:14 Dose: 100 mg Lubiprostone (Amitiza) 24 mcg PO DAILY [facility] Last Admin: 05/18/19 08:14 Dose: 24 mcg Metformin HCl (Glucophage Xr) 500 mg PO BID[facility] Last Admin: 05/18/19 08:15 Dose: 500 mg Oxcarbazepine (Trileptal) 600 mg PO HS [facility] Last Admin: 05/17/19 20:26 Dose: 600 mg Saccharomyces Boulardii (Florastor) 250 mg PO DAILY [facility] Last Admin: 05/18/19 08:15 Dose: 250 mg Senna/Docusate Sodium (Senokot S) 2 tab PO BID [facility] Last Admin: 05/18/19 08:13 Dose: 2 tab Sertraline HCl (Zoloft) 100 mg PO DAILY [facility] Last Admin: 05/18/19 08:15 Dose: 100 mg Sodium Chloride (Flush - Normal Saline) 10 ml IVF Q12HR [facility] Last Admin: 05/18/19 08:16 Dose: Not Given Sodium Chloride (Flush - Normal Saline) 10 ml IVF PRN PRN PRN Reason: Saline Flush Sodium Chloride ([place] Nasal [place] 0.65%) 0 ml EA NARE QIDPRN PRN PRN Reason: Nasal Congestion Tamsulosin HCl (Flomax) 0.4 mg PO DAILY [facility] Last Admin: 05/18/19 08:15 Dose: 0.4 mg Throat Lozenges (Cepastat Lozenges) 1 pedro luis PO Q2H PRN PRN Reason: Sore Throat Venlafaxine HCl (Effexor Xr) 150 mg PO DAILY [facility] Last Admin: 05/18/19 08:15 Dose: 150 mg Verapamil HCl (Calan Er) 180 mg PO DAILY [facility] Last Admin: 05/18/19 08:14 Dose: 180 mg
--- NOTE | 2019-05-18 12:28 | DIS ---
DATE OF ADMISSION: 05/08/2019 DATE OF DISCHARGE: 05/18/2019 PRIMARY CARE PHYSICIAN: Dr. Jm Rizo. DISCHARGE DISPOSITION: [facility]. PRIMARY DISCHARGE DIAGNOSES: 1. Recurrent fall. 2. Urinary tract infection. 3. Nephrolithiasis. 4. Sepsis, resolved. SECONDARY DISCHARGE DIAGNOSES: Schizoaffective disorder, Parkinson disease, obesity with body mass index 32, nephrolithiasis, hypertension, diabetes type 2, benign enlargement of prostate, anxiety and depression. PRIMARY PROCEDURE/OPERATION: Cystoscopy and stent placement by Dr. Romero. RADIOLOGICAL INVESTIGATION,: CT brain, chest x-ray, ankle x-ray, abdomen and pelvis CT scan, cervical spine CT scan, retrograde pyelogram. HOSPITAL COURSE: Please see my discharge summary dictated on May 14, 2019. On that day, the patient did not go home with a caregiver because the patient was not safe for discharge and caregiver was also worried about him going to home and that is why we kept him in hospital. We continued with his medication, and he agreed to go to [facility]. With help of caseworker intake, we arranged [facility]. There is no change in my discharge medication from May 14, 2019. The patient will follow up with Dr. Michael for urologic procedure. Job ID: [id number]
[2019-05-18 17:37] VITALS: BP 124/64; TEMP 97.7
== END 2019-05-18 17:15 | DRG 854 ==
LOC: ERS 11:55 → 2NO 19:41 → T4-B 05-11 16:55
PROVIDERS: ADMIT Family Medicine; ATTEND Family Medicine
PROC: 0T768DZ Dilation of Right Ureter with Intraluminal Device, Via Natural or Artificial Opening Endoscopic (ICD-10-PCS; principal; 2019-05-10)
PROC: BT1D1ZZ Fluoroscopy of Right Kidney, Ureter and Bladder using Low Osmolar Contrast (ICD-10-PCS; 2019-05-10)
DX: A41.9 Sepsis, unspecified organism (principal); N39.0 Urinary tract infection, site not specified; N20.0 Calculus of kidney; R29.6 Repeated falls; F25.9 Schizoaffective disorder, unspecified; G20 Parkinson's disease; E66.01 Morbid (severe) obesity due to excess calories; E11.9 Type 2 diabetes mellitus without complications; I10 Essential (primary) hypertension; N40.0 Benign prostatic hyperplasia without lower urinary tract symptoms; L89.621 Pressure ulcer of left heel, stage 1; L89.321 Pressure ulcer of left buttock, stage 1; L89.152 Pressure ulcer of sacral region, stage 2; K21.9 Gastro-esophageal reflux disease without esophagitis; F41.9 Anxiety disorder, unspecified; F32.9 Major depressive disorder, single episode, unspecified; Z68.32 Body mass index [BMI] 32.0-32.9, adult; Z86.73 Personal history of transient ischemic attack (TIA), and cerebral infarction without residual deficits; Z91.81 History of falling
CPT/HCPCS: 36415; 36416; 51701; 70450; 71045; 72125; 74176; 74420; 80048; 80053; 81003; 81015; 82550; 83605; 83735; 83880; 84443; 84484; 85025; 85576; 85610; 85730; 87040; 87086; 93005; 96361; 96365; C1769; J0692; J0696; J1650; J1815; J1956; J2001; J2405; J2704; J3010; J3490

== ENCOUNTER 2019-05-28 11:35 | Inpatient (IN) | payer MEDICARE, BC ==
[2019-05-28] MEDS ORDERED: Acetaminophen 325 MG Suppository ONE (11:45)
[2019-05-28] MEDS ORDERED: Acetaminophen 650 MG Suppository ONE (11:45)
[2019-05-28] MEDS ORDERED: Sodium Chloride 0.9% 100 ML ONE (11:54)
[2019-05-28] MEDS ORDERED: Cefepime 2 GM VIAL ONE (11:55)
[2019-05-28] MEDS ORDERED: Ondansetron PF 4 MG/2 ML Vial IVP PRN ×2 (12:00→14:46)
[2019-05-28] MEDS ORDERED: Ondansetron ODT 4 MG TAB SL PRN ×2 (12:00→14:46)
[2019-05-28 12:17] LABS: Bilirubin Small (Negative); Blood, Urine Large (Negative); Glucose, Urine (Dipstick) Negative (Negative); Leukocyte Small (Negative); Nitrite Negative (Negative); Protein, Urine (Dipstick) > or equal to 300 mg/dL (Neg-Trace); Urobilinogen 0.2 mg/dL (Less than 2)
[2019-05-28 12:19] LABS: Clarity Cloudy (Clear)
[2019-05-28 12:23] LABS: Bacteria/HPF 4+ HPF (None Seen); RBC/HPF Greater than 50 HPF (0-3); Squamous Epithelial 0-3 HPF (0-3); WBC/HPF 21-50 HPF (0-3)
--- NOTE | 2019-05-28 12:23 | RAD ---
Portable frontal chest radiograph: 05/28/2019 COMPARISON: 05/08/2019 HISTORY: Fever, central line placement FINDINGS: Supine imaging is provided, limiting assessment for pneumothorax and pleural fluid. There i s a left-sided vascular catheter, distal tip overlying the region of the cavoatrial junction. There is no focal consolidation or alveolar edema. IMPRESSION: Left vascular catheter as above.
[2019-05-28 12:25] LABS: #Lymphocytes 3.2 thou/uL (1.20-3.40); #Monocytes 1.4 thou/uL (0.11-0.59); #Neutrophils 12.6 thou/uL (1.40-6.50); %Basophils 0.1 % (0.0-1.0); %Eosinophils 0.1 % (0.0-10.0); %Lymphocytes 18.8 % (21.0-51.0); %Monocytes 8.2 % (0.0-10.0); %Neutrophils 72.8 % (42.0-75.0); Hemoglobin 17.8 g/dL (14.0-18.0); Mean Corpuscular HGB CONC 31.7 g/dL (32.0-36.0); Mean Corpuscular Hemoglobin 31.1 pg (27.0-31.0); Mean Corpuscular Volume 98.3 fL (78.0-98.0); Mean Platelet Volume 8.3 fL (7.4-10.4); Platelet Count 456 thou/uL (130-400); RBC Distribution Width 12.5 % (11.5-14.5); Red Blood Cell (RBC) Count 5.71 mill/uL (4.70-6.10); White Blood Cell (WBC) Count 17.3 thou/uL (4.8-10.8)
--- NOTE | 2019-05-28 12:35 | CT ---
Head CT without contrast 05/28/2019: COMPARISON: 05/08/2019 and 11/04/2014 HISTORY: Altered mental status TECHNIQUE: Axial CT imaging at 5 mm intervals from vertex through skull base without contrast FINDINGS: The imaged paranasal sinuses and mastoid air cells are well aerated. No displaced calvarial fracture. There is no intracranial hemorrhage or midline shift. There is periventricular hypodensity suggesting small vessel disease and/or prior ischemia, most sign ificant in the left frontal region.. The ventricles are prominent, as seen on the prior examination, especially the lateral ventricles. IMPRESSION: Periventricular hypodensity with prominence of the ventricular system, particularly the l ateral ventricles. This is a stable finding. No intracranial hemorrhage. Findings could potentially be on the basis of normal pressure hydrocephalus. Clinical correlation is essential. Follow-up brain MRI suggested if symptoms persist. Of note, size of the ventricular system has increased since the 11/04/2014 exam.
[2019-05-28 12:38] LABS: ALT (SGPT) 45 U/L (8-55); AST (SGOT) 50 U/L (5-34); Albumin 4.1 g/dL (3.4-4.8); Alkaline Phosphatase 107 U/L (40-150); Anion Gap 22 mmol/L (10-20); BUN (Urea Nitrogen) 91 mg/dL (8.4-25.7); Bilirubin, Total 0.6 mg/dL (0.2-1.2); CK (CPK) 971 U/L (30-200); Calc. Creatinine Clearance 0 mL/min (70-130); Calcium 11.4 mg/dL (7.8-10.44); Carbon Dioxide 20 mmol/L (23-31); Chloride 115 mmol/L (98-107); Estimated GFR-MDRD 26; Globulin 4.7 g/dL (2.4-3.5); Glucose 228 mg/dL (80-115); Lipase 41 U/L (8-78); Potassium 4.3 mmol/L (3.5-5.1); Protein, Total 8.8 g/dL (5.8-8.1); Sodium 153 mmol/L (136-145)
[2019-05-28 13:00] LABS: CKMB 1.1 ng/mL (0-6.6)
[2019-05-28] MEDS ORDERED: Diabetic Tussin 200 MG/10 ML UDCUP PO PRN (14:46)
[2019-05-28] MEDS ORDERED: Dextrose 5% in Water 1,000 ML IV PRN (14:46)
[2019-05-28] MEDS ORDERED: Bisacodyl 10 MG SUPP PR PRN (14:46)
[2019-05-28] MEDS ORDERED: Artificial Tears 18 DROP/0.9 ML EA EYE PRN (14:46)
[2019-05-28] MEDS ORDERED: Acetaminophen 325 MG TAB PO PRN (14:46)
[2019-05-28] MEDS ORDERED: HumaLOG 300 UNITS/3 ML VIAL SC PRN (14:46)
[2019-05-28] MEDS ORDERED: Loperamide HCl 2 MG CAP PO PRN (14:46)
[2019-05-28] MEDS ORDERED: Sodium Chloride 0.65% Nasal 44 ML BOT EA NARE PRN (14:46)
[2019-05-28] MEDS ORDERED: Senokot S 8.6-50 MG TAB PO PRN (14:46)
[2019-05-28] MEDS ORDERED: Dextrose 50% Abboject 50 ML SYRINGE SLOW IVP PRN (14:46)
[2019-05-28] MEDS ORDERED: Cepastat Lozenges 1 LOZ PO PRN (14:46)
--- NOTE | 2019-05-28 14:53 | HP ---
PRIMARY CARE PHYSICIAN: Dr. Jm Rizo. REASON FOR ADMISSION: Severe sepsis. HISTORY OF PRESENT ILLNESS: A 69-year-old male, who has underlying Parkinson disease. He is well known to me. He was recently admitted in our hospital on May 09, 2019. At that time, the patient was having UTI and he had nephrolithiasis, and Dr. Romero put stent in his ureter. Subsequently, the patient required Hathaway catheter. Before discharge, we were able to remove Hathaway catheter out, and Dr. Linwood Michael was following. There was plan for doing procedure with nephrolithiasis during that admission, but ultimately, that was planned as an outpatient basis, and the patient was discharged to halfway home at [facility]. Initially, this patient was refusing to go to shelter, but finally, he agreed to go to shelter. He went to shelter without Hathaway catheter. This patient was brought to ER from shelter for altered mental status. He is not able to provide any history, and he is completely encephalopathic. When he came to emergency room, his blood pressure was low. With IV fluid, his blood pressure improved. He was having very hard stick, and that is why he required central line placement in emergency room. The patient has received broad-spectrum antibiotic therapy. He is arousable now, but still drowsy and not participating with history. He is being admitted to [facility] for close monitoring. EMERGENCY ROOM COURSE: The patient had central line placement. He was given 2 L of IV fluid, Levaquin, vancomycin, cefepime, and Tylenol rectally. REVIEW OF SYSTEMS: All review of systems tried to review with the patient, but unable to review at this point because of encephalopathy. PAST MEDICAL HISTORY: Diabetes, type 2; gastroesophageal reflux disease; hypertension; dyslipidemia; Parkinson disease; obesity; recurrent urinary tract infection; physical deconditioning; frequent fall; and benign enlargement of prostate. PAST PSYCHIATRIC HISTORY: Schizoaffective disorder, anxiety and depression. PAST SURGICAL HISTORY: Deviated nasal septum repair in 1980, tonsillectomy, and nephrolithiasis surgery. SOCIAL HISTORY: The patient lives at shelter. No history of tobacco, alcohol, or illicit drug abuse. FAMILY HISTORY: No strong family history of premature coronary artery disease, stroke, or cancer. ALLERGIES: NO KNOWN DRUG ALLERGIES. CURRENT HOME MEDICATIONS: 1. Metformin 500 mg p.o. b.i.d. 2. Verapamil 180 mg p.o. daily. 3. Venlafaxine 150 mg daily. 4. Olanzapine 5 mg daily. 5. Losartan 100 mg daily. 6. Levothyroxine 50 mcg p.o. daily. 7. Clomipramine 75 mg twice daily. 8. Amitiza 24 mcg daily. 9. Colace 100 mg twice daily. 10. Hydrochlorothiazide 25 mg daily. 11. Zoloft 100 mg daily. 12. Carbidopa 25/250 one tablet 3 times daily. 13. Flomax 0.4 mg p.o. daily. 14. Lantus 15 units subcutaneously twice daily. 15. Lipitor 20 mg p.o. daily. 16. NovoLog insulin as per sliding scale. 17. Oxcarbazepine 600 mg p.o. daily. PHYSICAL EXAMINATION: VITAL SIGNS: Currently improved blood pressure to 135/68, pulse 116, respiratory rate 24, temperature 103.1, saturation 94% on room air. Weight 90 kg. GENERAL: The patient is currently lethargic, drowsy, arousable. HEENT: Head, normocephalic and atraumatic. Eyes; pupils are round and reactive to light. Extraocular muscle, intact. ENT; dry mucous membrane. No oral lesion. No pharyngeal erythema. No exudate. NECK: Supple. No JVD. No meningeal signs of irritation. LUNGS: Clear to auscultation without any rhonchi or rales. CARDIAC: S1 and S2. Regular. Tachycardia. No murmur. No gallop. No rub. ABDOMEN: Soft. Obesity present. Bowel sounds present. No peritoneal sign. No guarding. No rigidity. No rebound. BACK: Unremarkable. No CVA tenderness. EXTREMITIES: Upper extremities; passive movement of all joints is normal. Lower extremities; no edema. Good distal pulsation. SKIN: No skin rash. NEUROLOGIC: Detailed neurological examination not possible because of encephalopathy. SIGNIFICANT LABORATORY DATA: CT brain based on my review, no acute intracranial process or hydrocephalus. EKG is showing sinus tachycardia, nonspecific ST-T changes. Chest x-ray based on my review, no acute cardiopulmonary process. CBC: WBC 17.3, hemoglobin 17.8, platelet 456. BMP: Sodium 153, potassium 4.3, chloride 115, carbon dioxide 20, BUN 91, creatinine 2.49, glucose 228, calcium 11.4. LFT; AST 50, ALT 45, alkaline phosphatase 107, albumin 4.1. CK 971, CK-MB 1.1, troponin 0.155. BNP 79.2. Lipase 41. Lactic acid 3.1. Urinalysis is suggestive of UTI. ASSESSMENT: 1. Acute metabolic encephalopathy due to hypernatremia, acute kidney failure as well as due to sepsis. The CT brain is negative. 2. Severe sepsis with acute organ dysfunction. This patient has a sepsis with acute kidney failure, demand ischemia, and lactic acidosis. 3. Acute kidney failure due to prerenal etiology as well as urinary tract infection. 4. Abnormal electrolytes with hypernatremia, hyperchloremia, and metabolic acidosis. 5. Anion gap metabolic acidosis. 6. Type 2 myocardial infarction. 7. Hypercalcemia due to dehydration. 8. Urinary tract infection with nephrolithiasis/complicated urinary tract infection. 9. Hypothyroidism. 10. History of hypertension, but currently low blood pressure. 11. Diabetes, type 2, uncontrolled. 12. Underlying anxiety and depression as well as schizoaffective disorder. 13. Dyslipidemia. 14. Benign enlargement of prostate. 15. Physical deconditioning. PLAN: Admission to IMCU. Continue IV fluid, half-normal saline at 125 mL/hour. Consult Urology and Pulmonology as the patient is being admitted to IM. We will closely monitor for blood pressure. If needed, we will consider transferring to ICU for vasopressor support, but at this point, the patient does not need vasopressor support. We will repeat lactic acid tomorrow. We will monitor labs. We will start broad-spectrum antibiotic therapy with meropenem, levofloxacin, and vancomycin. We will follow up on blood culture and urine culture result. The patient will need PT, OT, and rn case mgr for discharge planning. We will keep him n.p.o., until he is more alert. We will also hold on his medication at this point because of the patient will be remained n.p.o. Once we verify his home medication, then we will start selected home medication tomorrow. At this point, we will stabilize with current treatment, and we will closely monitor in IMCU. DVT prophylaxis, heparin 5000 units subcutaneously twice daily. GI prophylaxis, Pepcid 20 mg IV daily. CODE STATUS: The patient will be remained full code, and we will consult Palliative Care for goal of care regarding code status as well as his long-term care plan. Plan of care was discussed with the patient. Job ID: [id number]
[2019-05-28 15:38] VITALS: BMI 25.9
[2019-05-28] MEDS: Sodium Chloride 0.9% 1,000 ML IV SCH ×2 (15:39→16:08)
[2019-05-28 15:48] LABS: Troponin I 0.139 ng/mL (< 0.028)
[2019-05-28] MEDS: Sodium Chloride 0.45% 1,000 ML IV SCH (15:57)
[2019-05-28] MEDS: Acetaminophen 650 MG Suppository PR PRN (16:01)
[2019-05-28 16:07] LABS: Lactic Acid 1.4 mmol/L (0.5-2.2)
[2019-05-28 19:02] LABS: Troponin I 0.122 ng/mL (< 0.028)
[2019-05-28] MEDS: Meropenem 500 MG in Sodium Chloride 0.9% 100 ML IVPB SCH (20:41)
[2019-05-28] MEDS: Heparin 5,000 UNITS/ML VIAL SC SCH (20:50)
[2019-05-28] MEDS ORDERED: Famotidine 20 MG TAB PO SCH (21:00)
[2019-05-29] MEDS: Sodium Chloride 0.45% 1,000 ML IV SCH ×3 (00:01→15:48)
[2019-05-29] MEDS: Acetaminophen 650 MG Suppository PR PRN (00:02)
[2019-05-29] MEDS: Meropenem 500 MG in Sodium Chloride 0.9% 100 ML IVPB SCH ×3 (04:04→19:46)
--- NOTE | 2019-05-29 04:45 | CON ---
DATE OF CONSULTATION: 05/28/2019 REASON FOR CONSULTATION: 1. Right-sided kidney stones with indwelling stent. 2. Altered mental status. 3. Concern for urinary tract infection. HISTORY OF PRESENT ILLNESS: Mr. Kavon Arevalo is a pleasant 69-year-old white male, patient of Dr. Linwood Michael, who I am acquainted with due to Mr. Arevalo's obstructing kidney stones, which I stented on 05/10/2019. Mr. Villaltas care was turned back over to Dr. Michael after my weekend of call and the patient was apparently scheduled for ESWL which could not be performed due to limited OR availability. The patient was to return to Dr. Michael's clinic on or about 05/25/2019, to schedule followup treatment. He is instead returned to the hospital with what appears to be altered mental status and worsening of his parkinsonian symptoms. The patient did have a post operative Hathaway catheter placed to drain his collecting system and did undergo a voiding trial while in hospital on his 05/10/2019 admission. He did undergo previous CT scanning on 05/08/2019, which showed multiple large stones in his right collecting system including one obstructing his ureteropelvic junction due to that was stented. Mr. Arevalo's additional medical problems include diabetes mellitus, and in addition, relatively significant Parkinson disease with severe bradykinesia. On this admission, he presents with signs of sepsis including fever to 104.5 F and also tachycardia. He is admitted to the hospitalist service for management of acute sepsis. PAST MEDICAL HISTORY: 1. Diabetes mellitus type 2. 2. Parkinson disease with bradykinesia. 3. Obesity. 4. Hypertension. 5. Dyslipidemia. 6. Gastroesophageal reflux disease. 7. Recurrent urinary tract infection. 8. Benign enlargement of prostate gland. PAST PSYCHIATRIC HISTORY: Schizoaffective disorder, anxiety, and depression. PAST SURGICAL HISTORY: Deviated nasal septum repair in 1990, tonsillectomy, and previous nephrolithiasis surgery by Dr. Michael. SOCIAL HISTORY: The patient is residing in a shelter at present. No current smoking or alcohol consumption. The patient has no children and is . FAMILY MEDICAL HISTORY: The patient's mother is at advanced age of 93 with heart failure and coronary artery disease. The patient's father at age 95 also with a history of heart disease. OUTPATIENT MEDICATION LIST: 1. Metformin 500 mg twice daily. 2. Verapamil Extended Release 24-hour 360 mg caplets one p.o. daily. 3. Venlafaxine extended release 150 mg p.o. daily. 4. Olanzapine 5 mg p.o. daily. 5. Losartan 50 mg tablets, two tablets p.o. daily. 6. Levothyroxine 50 mcg p.o. daily. 7. Clomipramine 75 mg p.o. daily. 8. Amitiza 24 mcg p.o. daily in the morning. 9. Colace 100 mg p.o. daily. 10. Hydrochlorothiazide 25 mg p.o. daily. 11. Zoloft 25 mg p.o. daily. 12. Carbidopa 25 mg 3 times daily. 13. Cefdinir 300 mg p.o. twice daily. 14. Tamsulosin 0.4 mg p.o. daily. 15. Lantus insulin 100 units/mL, 15 units subcutaneous twice daily. 16. Lipitor 20 mg p.o. daily. 17. NovoLog 100 units/mL on sliding scale. 18. Oxcarbazepine tablet 600 mg p.o. daily. PHYSICAL EXAMINATION: GENERAL: This is a white male, observed lying supine in bed. His gaze is directed to the right. He is able to move his head, but does not look past midline. The patient is verbal with me on exam. HEAD, EYES, EARS, NOSE, AND THROAT: Extraocular movements are partially intact to the right-sided gaze. LUNGS: Clear to auscultation bilaterally. There is a chest central line left subclavian in place. ABDOMEN: Obese, soft, and partially off to the right side due to body positioning. GENITOURINARY: Phallus is circumcised. Indwelling Hathaway cathter is in place and is draining relatively clear urine after apparently draining relatively dark colored urine earlier in the day, which appears to be concentrated as opposed to grossly bloody. There is no redness to the urine at all. Testes are found bilaterally in the scrotum. They are smooth, anodular, and nontender. Palpation of inguinal canals finds no evidence of hernia. Digital rectal examination is deferred. The patient has a relatively significant decubitus and/or chemical excoriation secondary to wet diapers. EXTREMITIES: The patient has almost no software support representative strength of significance and significant bradykinesia in the bilateral upper extremities. He is not lifting off the bed for me today. VITAL SIGNS: The patient's current temperature is 100.2, T-max today is 104.5, blood pressure is 125/73, the pulse rate is 103. LABORATORY STUDIES: The patient's white count is elevated at 17,300. There is an ANC elevation at 12.6 without percentile neutrophil elevation. Hemoglobin 17.8 with hematocrit of 56.2, suggesting significant dehydration. Serum chemistries show probable dehydration with blood urea nitrogen of 91, creatinine of 2.49 indicating a BUN to creatinine ratio in excess of 30. Sodium is 153, chloride 115, carbon dioxide is 20, anion gap is 22. The patient's AST is at 50. Serum calcium was 11.4. Review of ER chart, a central line was placed in the left subclavian vein. The patient had a Hathaway catheter placed in the emergency department during the entire course of the patient's emergency room visit, only 150 mL of urine was produced despite resuscitation with about 2200 mL of resuscitation fluid. DISCUSSION AND DECISION-MAKIN. Right-sided kidney stone, still awaiting ESWL treatment. Indwelling stent remains in place. The patient's urine suggests dehydration despite the fact that there is some red cells and blood in the patient's urine as well as bacteria on the urinalysis. The impression is of not a very aggressive urinary tract infection at this point. He is stented so would be expected to achieve pyelitis without much difficulty. His right-sided stones are still awaiting treatment and will have to wait until he is done with his current acute illness and dehydration episode. 2. Dehydration. Fluid resuscitation is appropriate in this patient. Admission findings suggest a high degree of dehydration, possibly chronic. This may well contribute to the patient's kidney stone formation. Given his acute presentation and dehydrated state and when the patient is appropriately stable, a CT noncontrast should be obtained to verify the patient does not have bilateral obstruction. He is not an adequate informant at this point. No imaging studies have been performed on the abdomen and pelvis since his admission to the best of my knowledge. 3. DVT prophylaxis. The patient is at risk for DVT due to massive dehydration and concern here would be for short and long-term need for anticoagulation. Over the short term, appropriate anticoagulation should be given, but long-term anticoagulation options should be limited as the patient has planned to undergo extracorporeal shockwave lithotripsy with Dr. Michael, primary urologist. TIME SPENT: Over 70 minutes of initial hospital evaluation and care were provided to this patient today exclusive of any procedures performed. Job ID: [id number]
[2019-05-29 04:52] LABS: Band 2 % (5-11); Hemoglobin 14.3 g/dL (14.0-18.0); Lymphocytes 25 % (21-51); MDiff Complete? YES; Mean Corpuscular HGB CONC 31.6 g/dL (32.0-36.0); Mean Corpuscular Volume 98.2 fL (78.0-98.0); Mean Platelet Volume 8.2 fL (7.4-10.4); Monocytes 5 % (0-10); Neutrophil 68 % (42-75); Platelet Count 314 thou/uL (130-400); RBC Distribution Width 12.4 % (11.5-14.5)
[2019-05-29 05:11] LABS: Lactic Acid 1.3 mmol/L (0.5-2.2)
[2019-05-29 05:16] LABS: ALT (SGPT) 52 U/L (8-55); AST (SGOT) 34 U/L (5-34); Albumin 3.2 g/dL (3.4-4.8); Alkaline Phosphatase 79 U/L (40-150); Anion Gap 16 mmol/L (10-20); BUN (Urea Nitrogen) 82 mg/dL (8.4-25.7); Bilirubin, Total 0.5 mg/dL (0.2-1.2); Calc. Creatinine Clearance 53 mL/min (70-130); Carbon Dioxide 21 mmol/L (23-31); Chloride 118 mmol/L (98-107); Estimated GFR-MDRD 42; Globulin 3.7 g/dL (2.4-3.5); Glucose 272 mg/dL (80-115); Potassium 3.2 mmol/L (3.5-5.1); Protein, Total 6.9 g/dL (5.8-8.1); Sodium 152 mmol/L (136-145)
[2019-05-29] MEDS: HumaLOG 300 UNITS/3 ML VIAL SC PRN ×2 (06:29→10:36)
[2019-05-29] MEDS: Heparin 5,000 UNITS/ML VIAL SC SCH ×2 (08:23→19:55)
[2019-05-29] MEDS ORDERED: Potassium Chloride 40 MEQ in Premix Bag 1 BAG IVPB SCH (10:30)
[2019-05-29] MEDS: Potassium Chloride 20 MEQ in Premix Bag 1 BAG IVPB SCH ×4 (10:37→17:41)
--- NOTE | 2019-05-29 10:46 | CON ---
DATE OF CONSULTATION: 05/29/2019 SERVICE: Pulmonary Medicine. REASON FOR CONSULTATION: [facility] patient. HISTORY OF PRESENT ILLNESS: The patient is a 69-year-old white male with past medical history significant for advancing Parkinson disease with dementia. He is essentially bedbound at this point. He has very significant rigidity of the upper and lower extremities. He demonstrates very severe weakness. This is his usual state of health. His p.o. intake has decreased significantly over the past couple of days. He started having symptoms consistent with febrile illness. He was brought to the emergency department. Panculture and empiric antibiotics were initiated. He was discovered to have an acute kidney injury, and hypernatremia associated with his severe dehydration. Overnight, his urine output has picked up beautifully. He denies having any shortness of breath or chest discomfort currently. His blood pressures have firmed up very nicely, and his heart rate has settled down beautifully. He cannot provide me any historical data. PAST MEDICAL HISTORY: 1. Type 2 diabetes mellitus. 2. Gastroesophageal reflux disease. 3. Hypertension. 4. Dyslipidemia. 5. Parkinson disease with dementia. 6. Urinary tract infection, recurrent. 7. Debility and severe deconditioning. 8. BPH. PAST SURGICAL HISTORY: 1. Deviated nasal septum repair. 2. Tonsillectomy. 3. Nephrolithiasis interventions. SOCIAL HISTORY: Negative for alcohol, tobacco, or illicit drug use. He lives in a snf. FAMILY HISTORY: Noncontributory. ALLERGIES: NO KNOWN DRUG ALLERGIES. MEDICATIONS: List of his inpatient medications was reviewed. No specific updates were made at this time. REVIEW OF SYSTEMS: This cannot be obtained as the patient is not capable of interacting with me well enough to give me a reliable review of systems. PHYSICAL EXAMINATION: VITAL SIGNS: Afebrile currently. He had a T-max of 102.4. Pulse 106 and significantly improving, blood pressure 127/82, respirations 20, saturation 99% on room air. GENERAL: The patient is awake and alert, in no apparent distress. LUNGS: Very good air entry. No prolonged expiratory phase, wheezing, crackles , or rhonchi appreciated. HEART: Normal rate, regular. ABDOMEN: Soft. Minimal tenderness to palpation in the hypogastric region. No rebound or guarding is appreciated. Bowel sounds are present. MUSCULOSKELETAL: No cyanosis or clubbing. He has skin tenting throughout. No pitting. : Hathaway catheter in place. NEUROLOGIC: Grossly nonfocal. IMAGIN. CT of the brain demonstrates no acute intracranial abnormality. 2. Chest x-ray demonstrates no acute cardiopulmonary abnormality. ASSESSMENT: 1. Severe sepsis. 2. Urinary tract infection. 3. Nephrolithiasis with ureteral stents in place. 4. Dehydration, severe. 5. Parkinson disease with dementia, advanced. DISCUSSION AND PLAN: I agree with IV hydration. Pulmonary/Critical Care will continue to follow along for the time being. He is empirically on antibiotics that should be adequate to cover urinary tract species. At this point, he is stable for transition out of the ICU to the medical unit. When he arrives here, he will have no further requirements for inpatient Pulmonary/Critical Care opinion, and I will sign off. Please call with additional questions or concerns through time. 70 minutes have been devoted to this patient in various activities. I personally reviewed all imaging studies and laboratory data noted within this document. For fifty percent of this time, I was interacting with the patient at the bedside or coordinating care with the care team. For the remainder of the time I was immediately available to the patient in the hospital unit. Job ID: [id number] [id number]
[2019-05-29] MEDS ORDERED: Vancomycin HCl 1 GM in Premix Bag 1 BAG IVPB SCH (11:00)
--- NOTE | 2019-05-29 11:42 | CT ---
CT abdomen and pelvis noncontrast HISTORY: Renal stones. Right ureteral obstruction. Ureteral stent in place. COMPARISON: 05/08/2019. FINDINGS: Right ureteral stent is in good CT position. No hydronephrosis. Minimal stranding around ea ch kidney within the retroperitoneal fat. The calculus previously seen at the right ureteropelvic junction is now within the central collecting system and measures up to 1.8 cm on today's coronal robin ges. Hathaway catheter decompresses the urinary bladder. Some gas is present within the urinary bladder. Tiny left renal calculus is stable. Lack of contrast limits evaluation for other abnormalities. Atelectasis and scarring at the lung base s. Gallbladder is distended with hyperdense material likely related to prior contrast or biliary sludge. Calcification throughout the arterial structures. No evidence of bowel obstruction. IMPRESSION: Right ureteral stent in place. No evidence of urinary tract obstruction. Bilateral renal calculi. Atherosclerosis.
--- NOTE | 2019-05-29 11:54 | PDOC.PN ---
- Subjective Encounter Start Date: 05/29/19 Encounter Start Time: 09:45 -: old records requested/rev Patient seen and examined. No new complaints. No overnight events - Objective Resuscitation Status - Order Detail: 05/28/19 13:23 Resuscitation Status Routine Resuscitation Status: FULL: Full Resuscitation MAR Reviewed: Yes Vital Signs & Weight: Vital Signs (12 hours) Temp Pulse Pulse BP BP Pulse Ox Pulse Ox 05/29/19 10:26 97.7 F 05/29/19 10:20 104 H 145/76 H 05/29/19 09:43 103 H 106 H 127/82 153/72 H 100 05/29/19 07:39 98 05/29/19 07:08 97.8 F 05/29/19 03:31 99.7 F H Pulse Ox 05/29/19 10:26 05/29/19 10:20 05/29/19 09:43 97 05/29/19 07:39 05/29/19 07:08 05/29/19 03:31 Weight Weight 191 lb 6.4 oz Most Recent Monitor Data Heart Rate from ECG 106 NIBP 127/82 NIBP BP-Mean 97 Respiration from ECG 20 SpO2 99 I&O: 05/28/19 05/29/19 05/30/19 06:59 06:59 06:59 Intake Total 2100 Output Total 1250 Balance 850 Result Diagrams: 05/29/19 04:00 05/29/19 04:00 Additional Labs: Accuchecks 05/29/19 05/29/19 05/28/19 10:15 05:50 22:11 POC Glucose 230 H 283 H 216 H 05/28/19 05/28/19 16:03 14:25 POC Glucose 218 H 235 H Radiology Reviewed by me: Yes (CT abdomen reviewed) EKG Reviewed by me: Yes Phys Exam - Physical Examination Constitutional: NAD HEENT: PERRLA, sclera anicteric Neck: no JVD, supple Respiratory: no wheezing, no rales, no rhonchi Cardiovascular: RRR, no significant murmur, no rub Gastrointestinal: soft, non-tender, no distention, positive bowel sounds Musculoskeletal: no edema, pulses present Lymphatic: no nodes Skin: normal turgor Deviation from normal: please see wound photos for more details Dx/Plan (1) Acute kidney failure Status: Acute Comment: Due to dehydration and sepsis, Improving (2) Acute metabolic encephalopathy Code(s): G93.41 - METABOLIC ENCEPHALOPATHY Status: Acute (3) High anion gap metabolic acidosis Code(s): E87.2 - ACIDOSIS Status: Acute (4) Hypernatremia Code(s): E87.0 - HYPEROSMOLALITY AND HYPERNATREMIA Status: Acute (5) Sepsis with acute organ dysfunction Code(s): A41.9 - SEPSIS, UNSPECIFIED ORGANISM; R65.20 - SEVERE SEPSIS WITHOUT SEPTIC SHOCK Status: Acute (6) Type 2 myocardial infarction Code(s): I21.A1 - MYOCARDIAL INFARCTION TYPE 2 Status: Acute (7) UTI (urinary tract infection) Status: Acute (8) Anxiety and depression Code(s): F41.9 - ANXIETY DISORDER, UNSPECIFIED; F32.9 - MAJOR DEPRESSIVE DISORDER, SINGLE EPISODE, UNSPECIFIED Status: Chronic (9) BPH (benign prostatic hyperplasia) Code(s): N40.0 - BENIGN PROSTATIC HYPERPLASIA WITHOUT LOWER URINRY TRACT SYMP Status: Chronic (10) DM2 (diabetes mellitus, type 2) Status: Chronic Comment: (11) HTN (hypertension) Code(s): I10 - ESSENTIAL (PRIMARY) HYPERTENSION Status: Chronic Qualifiers: Comment: (12) Nephrolithiasis Status: Chronic (13) Parkinson disease Code(s): G20 - PARKINSON'S DISEASE Status: Chronic Comment: (14) Physical deconditioning Code(s): R53.81 - OTHER MALAISE Status: Chronic (15) Schizoaffective disorder Code(s): F25.9 - SCHIZOAFFECTIVE DISORDER, UNSPECIFIED Status: Chronic (16) Hypotension Status: Resolved (17) Lactic acidosis Code(s): E87.2 - ACIDOSIS Status: Resolved - Plan cont current plan of care, plan discussed w/ family, continue antibiotics * i spoke with mother and father and updated condition * continue current antibiotics * will transfer to medical floor later today if BP stable * medication reviewed as below * symptomatic treatment * follow culture * urology and pulmonary recommendation appreciated. Review of Systems - Review of Systems Other: not reliable due to encephalopathy - Medications/Allergies Allergies/Adverse Reactions: Allergies Allergy/AdvReac Type Severity Reaction Status Date / Time No Known Drug Allergies Allergy Unknown Verified 05/28/19 15:21 Medications: Current Medications Acetaminophen (Tylenol) 650 mg PO Q4H PRN PRN Reason: Headache/Fever/Mild Pain (1-3) Acetaminophen (Tylenol) 650 mg NV Q4H PRN PRN Reason: Fever > 101 Last Admin: 05/29/19 00:02 Dose: 650 mg Artificial Tears (Tears Naturale) 2 drop EA EYE PRN PRN PRN Reason: Dry Eyes Bisacodyl (Dulcolax) 10 mg [place] DAILYPRN PRN PRN Reason: Constipation Dextrose/Water (Dextrose 50%) 25 gm SLOW IVP PRN PRN PRN Reason: Hypoglycemia Glucagon (Glucagon) 1 mg IM PRN PRN PRN Reason: Hypoglycemia Guaifenesin (Robitussin Sf) 200 mg PO Q4H PRN PRN Reason: Cough Heparin Sodium (Porcine) (Heparin) 5,000 units SC BID [facility] Last Admin: 05/29/19 08:23 Dose: 5,000 units Sodium Chloride (1/2 Normal Saline) 1,000 mls @ 125 mls/hr IV .Q8H [facility] Last Admin: 05/29/19 08:23 Dose: 1,000 mls Meropenem 500 mg/ Sodium (Chloride) 100 mls @ 200 mls/hr IVPB 0400,1200,2000 [facility] Last Admin: 05/29/19 04:04 Dose: 100 mls Dextrose/Water (D5w) 1,000 mls @ 0 mls/hr IV .Q0M PRN PRN Reason: Hypoglycemia Potassium Chloride 20 meq/ (Device) 100 mls @ 50 mls/hr IVPB Q2H [facility] Stop: 05/29/19 18:59 Last Admin: 05/29/19 10:37 Dose: 100 mls Insulin Human Lispro (Humalog) 0 units SC .MODERATE SLIDING SC PRN PRN Reason: Moderate Correctional Scale Last Admin: 05/29/19 10:36 Dose: 4 unit Insulin Human Lispro (Humalog) 0 units SC .BEDTIME SLIDING SC PRN PRN Reason: Bedtime Correctional Scale Loperamide HCl (Imodium) 2 mg PO PRN PRN PRN Reason: Diarrhea/Loose Stools Miscellaneous Medication (Pharmacy To Dose) 1 each IVPB .VANCOMYCIN PRN PRN Reason: Pharmacy to dose Ondansetron HCl (Zofran Odt) 4 mg SL Q6H PRN PRN Reason: Nausea/Vomiting Ondansetron HCl (Zofran) 4 mg IVP Q6H PRN PRN Reason: Nausea/Vomiting Senna/Docusate Sodium (Senokot S) 2 tab PO BID PRN PRN Reason: Constipation Sodium Chloride ([place] Nasal [place] 0.65%) 0 ml EA NARE QIDPRN PRN PRN Reason: Nasal Congestion Sodium Chloride (Flush - Normal Saline) 10 ml IVF Q12HR KEMAL Sodium Chloride (Flush - Normal Saline) 10 ml IVF PRN PRN PRN Reason: Saline Flush Throat Lozenges (Cepastat Lozenges) 1 pedro luis PO Q2H PRN PRN Reason: Sore Throat
--- NOTE | 2019-05-29 18:06 | PRG ---
DATE OF SERVICE: 05/29/2019 SUBJECTIVE: This is a 69-year-old white male who I have known from prior admissions and office visits, who I am visiting today in room B3 at [facility] on the 29 of May. He was admitted with infection and dehydration. Dr. 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 His white count this morning was 20,000, hemoglobin was 14.3, creatinine was 1.65. Sugars have been somewhat elevated. His urinalysis showed over 50 red cells, 20-50 white cells, 4+ bacteria. Cultures of the urine are coming back negative at 24 hours. Blood cultures are also negative. He came in with a fever, but looking at his vital signs most recently, he has been afebrile with good O2 saturation on room air. Not hypotensive, not tachycardic. It does not look like he has had fever more than 99 or 100 since late yesterday afternoon. He is on meropenem for antibiotic coverage. He does have a Hathaway catheter in, although when it was placed, he had very little in the bladder, so he was not in retention. I think it has been placed for monitoring. He had good urine output yesterday. It appears that this patient is improving. The culture so far negative with hope that the urine culture, blood cultures were done before they started any antibiotics. I have reviewed his CAT scan and he does have some stones up in his kidney. The one that was in his proximal ureter is now back in the renal pelvis and he does not have any hydronephrosis or ureteral stones. I would hope that we could be able to look at treating his stones may be next Saturday. If he is clinically improved by then, it may be easier to keep him even in that until that time and set him up for ESWL then. It is certainly okay to put him on heparin to help prevent DVT. This is something that we could stop just prior to the surgery. I would not recommend we put him on Coumadin or anything that would be a long-acting anticoagulant. I will follow along with you while he is in the hospital. Job ID: [id number]
[2019-05-29] MEDS ORDERED: Famotidine/PF 20 mg/2ml Vial SLOW IVP SCH (21:00)
[2019-05-30] MEDS: Sodium Chloride 0.45% 1,000 ML IV SCH ×3 (01:34→08:24)
[2019-05-30] MEDS: Meropenem 500 MG in Sodium Chloride 0.9% 100 ML IVPB SCH ×3 (04:19→20:57)
[2019-05-30 07:02] LABS: Anion Gap 15 mmol/L (10-20); BUN (Urea Nitrogen) 53 mg/dL (8.4-25.7); Calc. Creatinine Clearance 68 mL/min (70-130); Calcium 9.6 mg/dL (7.8-10.44); Carbon Dioxide 21 mmol/L (23-31); Chloride 120 mmol/L (98-107); Estimated GFR-MDRD 55; Glucose 228 mg/dL (80-115); Magnesium 1.9 mg/dL (1.6-2.6); Phosphorus 2.3 mg/dL (2.3-4.7); Sodium 152 mmol/L (136-145)
[2019-05-30] MEDS: Heparin 5,000 UNITS/ML VIAL SC SCH ×2 (08:18→20:58)
--- NOTE | 2019-05-30 11:14 | PDOC.PN ---
- Subjective Encounter Start Date: 05/30/19 Encounter Start Time: 08:30 pt is more alert, BP has improved, no fever Patient seen and examined. No new complaints. No overnight events - Objective Resuscitation Status - Order Detail: 05/28/19 13:23 Resuscitation Status Routine Resuscitation Status: FULL: Full Resuscitation MAR Reviewed: Yes Vital Signs & Weight: Vital Signs (12 hours) Temp Pulse Resp BP BP Pulse Ox 05/30/19 08:00 97 05/30/19 06:57 97.4 F L 103 H 18 153/75 H 97 05/30/19 04:19 99.1 F 106 H 20 147/75 H 96 05/29/19 23:47 98.5 F 101 H 16 136/77 99 Weight Weight 191 lb 6.4 oz Most Recent Monitor Data Heart Rate from ECG 83 NIBP 119/79 NIBP BP-Mean 92 Respiration from ECG 16 SpO2 99 I&O: 05/29/19 05/30/19 05/31/19 06:59 06:59 06:59 Intake Total 2100 2728 Output Total 1250 1800 Balance 850 928 Result Diagrams: 05/29/19 04:00 05/30/19 06:23 Additional Labs: Accuchecks 05/30/19 05/29/19 05/29/19 06:04 19:51 16:35 POC Glucose 190 H 162 H 188 H Phys Exam - Physical Examination Constitutional: NAD HEENT: PERRLA, moist MMs, sclera anicteric Neck: no JVD, supple Respiratory: no wheezing, no rales, no rhonchi Cardiovascular: RRR, no significant murmur, no rub Gastrointestinal: soft, non-tender, no distention, positive bowel sounds Musculoskeletal: no edema, pulses present parkinson tremor Lymphatic: no nodes Psychiatric: normal affect Skin: normal turgor Deviation from normal: shaborratic dermatitis Dx/Plan (1) Acute kidney failure Status: Resolved Comment: Due to dehydration and sepsis, Improving (2) Acute metabolic encephalopathy Code(s): G93.41 - METABOLIC ENCEPHALOPATHY Status: Resolved (3) High anion gap metabolic acidosis Code(s): E87.2 - ACIDOSIS Status: Resolved (4) Hypernatremia Code(s): E87.0 - HYPEROSMOLALITY AND HYPERNATREMIA Status: Acute (5) Sepsis with acute organ dysfunction Code(s): A41.9 - SEPSIS, UNSPECIFIED ORGANISM; R65.20 - SEVERE SEPSIS WITHOUT SEPTIC SHOCK Status: Acute (6) Type 2 myocardial infarction Code(s): I21.A1 - MYOCARDIAL INFARCTION TYPE 2 Status: Acute (7) UTI (urinary tract infection) Status: Acute (8) Anxiety and depression Code(s): F41.9 - ANXIETY DISORDER, UNSPECIFIED; F32.9 - MAJOR DEPRESSIVE DISORDER, SINGLE EPISODE, UNSPECIFIED Status: Chronic (9) BPH (benign prostatic hyperplasia) Code(s): N40.0 - BENIGN PROSTATIC HYPERPLASIA WITHOUT LOWER URINRY TRACT SYMP Status: Chronic (10) DM2 (diabetes mellitus, type 2) Status: Chronic Comment: (11) HTN (hypertension) Code(s): I10 - ESSENTIAL (PRIMARY) HYPERTENSION Status: Chronic Qualifiers: Comment: (12) Nephrolithiasis Status: Chronic (13) Parkinson disease Code(s): G20 - PARKINSON'S DISEASE Status: Chronic Comment: (14) Physical deconditioning Code(s): R53.81 - OTHER MALAISE Status: Chronic (15) Schizoaffective disorder Code(s): F25.9 - SCHIZOAFFECTIVE DISORDER, UNSPECIFIED Status: Chronic (16) Hypotension Status: Resolved (17) Lactic acidosis Code(s): E87.2 - ACIDOSIS Status: Resolved - Plan cont current plan of care, continue antibiotics, PT/OT * continue meropenam * today will start his home medication * medication reviewed as below * symptomatic treatment * so far culture negative * pt is at his baseline level * continue PT. Review of Systems - Review of Systems ENT: negative: Ear Pain, Ear Discharge, Nose Pain, Nose Discharge, Nose Congestion, Mouth Pain, Mouth Swelling, Throat Pain, Throat Swelling, Other Respiratory: negative: Cough, Dry, Shortness of Breath, Hemoptysis, SOB with Excertion, Pleuritic Pain, Sputum, Wheezing Cardiovascular: negative: chest pain, palpitations, orthopnea, paroxysmal nocturnal dyspnea, edema, light headedness, other Gastrointestinal: negative: Nausea, Vomiting, Abdominal Pain, Diarrhea, Constipation, Melena, Hematochezia, Other Genitourinary: negative: Dysuria, Frequency, Incontinence, Hematuria, Retention , Other Musculoskeletal: negative: Neck Pain, Shoulder Pain, Arm Pain, Back Pain, Hand Pain, Leg Pain, Foot Pain, Other Other: not reliable due to his cognitive deficit - Medications/Allergies Allergies/Adverse Reactions: Allergies Allergy/AdvReac Type Severity Reaction Status Date / Time No Known Drug Allergies Allergy Unknown Verified 05/28/19 15:21 Medications: Current Medications Acetaminophen (Tylenol) 650 mg PO Q4H PRN PRN Reason: Headache/Fever/Mild Pain (1-3) Acetaminophen (Tylenol) 650 mg [place] Q4H PRN PRN Reason: Fever > 101 Last Admin: 05/29/19 00:02 Dose: 650 mg Artificial Tears (Tears Naturale) 2 drop EA EYE PRN PRN PRN Reason: Dry Eyes Atorvastatin Calcium (Lipitor) 20 mg PO HS KEMAL Bisacodyl (Dulcolax) 10 mg [place] DAILYPRN PRN PRN Reason: Constipation Carbidopa/Levodopa (Sinemet 25-250) 1 tab PO TID [facility] Dextrose/Water (Dextrose 50%) 25 gm SLOW IVP PRN PRN PRN Reason: Hypoglycemia Docusate Sodium (Colace) mg PO BID [facility] Glucagon (Glucagon) 1 mg IM PRN PRN PRN Reason: Hypoglycemia Guaifenesin (Robitussin Sf) 200 mg PO Q4H PRN PRN Reason: Cough Heparin Sodium (Porcine) (Heparin) 5,000 units SC BID [facility] Last Admin: 05/30/19 08:18 Dose: 5,000 units Sodium Chloride (1/2 Normal Saline) 1,000 mls @ 125 mls/hr IV .Q8H [facility] Last Admin: 05/30/19 08:24 Dose: 1,000 mls Meropenem 500 mg/ Sodium (Chloride) 100 mls @ 200 mls/hr IVPB 0400,1200,2000 [facility] Last Admin: 05/30/19 04:19 Dose: 100 mls Dextrose/Water (D5w) 1,000 mls @ 0 mls/hr IV .Q0M PRN PRN Reason: Hypoglycemia Insulin Glargine (Lantus) 15 units SC BID [facility] Insulin Human Lispro (Humalog) 0 units SC .MODERATE SLIDING SC PRN PRN Reason: Moderate Correctional Scale Last Admin: 05/29/19 10:36 Dose: 4 unit Insulin Human Lispro (Humalog) 0 units SC .BEDTIME SLIDING SC PRN PRN Reason: Bedtime Correctional Scale Levothyroxine Sodium (Synthroid) 50 mcg PO DAILY [facility] Loperamide HCl (Imodium) 2 mg PO PRN PRN PRN Reason: Diarrhea/Loose Stools Lubiprostone (Amitiza) 24 mcg PO DAILY [facility] Metformin HCl (Glucophage Xr) 500 mg PO BID [facility] Miscellaneous Medication (Pharmacy To Dose) 1 each IVPB .VANCOMYCIN PRN PRN Reason: Pharmacy to dose Non-Formulary Medication (Clomipramine Hcl [Anafranil]) 75 mg PO BID[facility] Non-Formulary Medication (Verapamil Hcl [Verapamil Hcl Er]) 180 mg PO DAILY [facility] Olanzapine (Zyprexa) 5 mg PO HS [facility] Ondansetron HCl (Zofran Odt) 4 mg SL Q6H PRN PRN Reason: Nausea/Vomiting Ondansetron HCl (Zofran) 4 mg IVP Q6H PRN PRN Reason: Nausea/Vomiting Oxcarbazepine (Trileptal) 600 mg PO HS [facility] Senna/Docusate Sodium (Senokot S) 2 tab PO BID PRN PRN Reason: Constipation Sertraline HCl (Zoloft) 100 mg PO DAILY [facility] Sodium Chloride ([place] Nasal [place] 0.65%) 0 ml EA NARE QIDPRN PRN PRN Reason: Nasal Congestion Sodium Chloride (Flush - Normal Saline) 10 ml IVF Q12HR KEMAL Last Admin: 05/30/19 08:20 Dose: Not Given Sodium Chloride (Flush - Normal Saline) 10 ml IVF PRN PRN PRN Reason: Saline Flush Last Admin: 05/29/19 19:47 Dose: 10 ml Tamsulosin HCl (Flomax) 0.4 mg PO DAILY [facility] Throat Lozenges (Cepastat Lozenges) 1 pedro luis PO Q2H PRN PRN Reason: Sore Throat Venlafaxine HCl (Effexor Xr) 150 mg PO DAILY [facility]
[2019-05-30] MEDS: HumaLOG 300 UNITS/3 ML VIAL SC PRN ×2 (11:40→16:50)
--- NOTE | 2019-05-30 12:38 | PRG ---
DATE OF SERVICE: 05/30/2019 I am seeing him here in room 4426. He is still confused. He knows he is in the hospital, but he thinks he is over in [place], not quite sure of the season that he was in. His vital signs; his pulse is around 100, his O2 saturation is good, he is afebrile, his blood pressure has been fine. Urine output has been good. He has had about 1200 mL in last shift. His CBC was not repeated. His chemistry showed that his sodium is still high, it is 152, same as yesterday; creatinine is 1.3, which is down a little bit; BUN is 53, which is down some; sugars are improving. His Microbiology still shows blood cultures pending and urine culture only negative at 24 hours so far. He is still on meropenem. His urine is clear. He had a Hathaway catheter in. At this point, we will wait for his encephalopathy to improve. It may just be related to hypernatremia. We will see what his final cultures show, still holding out for possibly treating him with lithotripsy this Saturday if he improves. I will follow along with this. Job ID: [id number]
[2019-05-30] MEDS: Carbidopa/Levodopa 25-250 mg Tablet PO SCH ×2 (14:46→20:58)
[2019-05-30] MEDS ORDERED: CLOMIPRAMINE HCL 75 MG PO SCH (17:00)
[2019-05-30] MEDS: OXcarbazepine 300 MG TAB PO SCH (20:58)
[2019-05-30] MEDS: Insulin Glargine 15 UNITS in Pre-Filled Syringe 1 EACH SC SCH (20:58)
[2019-05-30] MEDS: Atorvastatin Calcium 20 MG TAB PO SCH (20:58)
[2019-05-30] MEDS: OLANZapine 5 MG TAB PO SCH (20:58)
[2019-05-30] MEDS: Docusate 100 MG CAP PO SCH (20:58)
[2019-05-30] MEDS ORDERED: OXcarbazepine 600 MG TAB PO SCH (21:00)
[2019-05-31] MEDS: Sodium Chloride 0.45% 1,000 ML IV SCH ×2 (03:18)
[2019-05-31] MEDS: Meropenem 500 MG in Sodium Chloride 0.9% 100 ML IVPB SCH ×3 (04:14→21:28)
[2019-05-31] MEDS: HumaLOG 300 UNITS/3 ML VIAL SC PRN (06:02)
[2019-05-31 07:13] LABS: Anion Gap 12 mmol/L (10-20); BUN (Urea Nitrogen) 34 mg/dL (8.4-25.7); Calc. Creatinine Clearance 96 mL/min (70-130); Calcium 9.5 mg/dL (7.8-10.44); Carbon Dioxide 22 mmol/L (23-31); Chloride 120 mmol/L (98-107); Estimated GFR-MDRD 82; Glucose 222 mg/dL (80-115); Sodium 150 mmol/L (136-145)
[2019-05-31 07:20] LABS: Phosphorus 1.9 mg/dL (2.3-4.7)
[2019-05-31] MEDS ORDERED: Sodium Phosphate 15 MMOL in Sodium Chloride 0.9% 250 ML 250 ML IVPB SCH (07:45)
[2019-05-31] MEDS: Dextrose 5% in Water 1,000 ML IV SCH (08:04)
[2019-05-31] MEDS: Heparin 5,000 UNITS/ML VIAL SC SCH ×2 (08:05→21:29)
[2019-05-31] MEDS: Tamsulosin HCl 0.4 MG CAP PO SCH (08:06)
[2019-05-31] MEDS: Docusate 100 MG CAP PO SCH ×2 (08:06→21:29)
[2019-05-31] MEDS: metFORMIN 500 MG TAB PO SCH ×2 (08:06→17:06)
[2019-05-31] MEDS: Levothyroxine Sodium 50 MCG TAB PO SCH (08:06)
[2019-05-31] MEDS: Venlafaxine HCl XR 150 MG CAP PO SCH (08:06)
[2019-05-31] MEDS: Insulin Glargine 15 UNITS in Pre-Filled Syringe 1 EACH SC SCH ×2 (08:07→21:28)
[2019-05-31] MEDS: Carbidopa/Levodopa 25-250 mg Tablet PO SCH ×3 (08:27→21:29)
[2019-05-31] MEDS: Lubiprostone 24 MCG CAP PO SCH (08:27)
--- NOTE | 2019-05-31 11:02 | PRG ---
DATE OF SERVICE: 05/31/2019 I am seeing him in room 4426 here at [facility]. His vital signs over the last 24 hours have been stable. His temperature has been 99.6, is high. His pulse is running between 70 and 100. His O2 saturations on room air are good. His blood pressure is fine. He has a Hathaway catheter still in and he has had good urine output and almost 2 L yesterday. His microbiology studies have shown no growth of the urine and blood at 48 hours. His creatinine is 0.92, his sodium is still 150, his chloride is still 120, his CO2 is 22. His sugars have been fairly stable in the 200 range, on Accu-Cheks. He still is somewhat confused in bed, but is not having any complaints. We will see how he does over the next 2 to 3 days to see if we can do shockwave lithotripsy this coming Saturday or if we will need to put it off based on his health. I will continue to follow along with you while he is here. Job ID: [id number]
--- NOTE | 2019-05-31 11:58 | PDOC.PN ---
- Subjective Encounter Start Date: 05/31/19 Encounter Start Time: 08:45 Patient seen and examined. No new complaints. No overnight events stable and baseline confused, and weak - Objective Resuscitation Status - Order Detail: 05/28/19 13:23 Resuscitation Status Routine Resuscitation Status: FULL: Full Resuscitation MAR Reviewed: Yes Vital Signs & Weight: Vital Signs (12 hours) Temp Pulse Resp BP Pulse Ox 05/31/19 11:25 99.0 F 107 H 18 137/70 94 L 05/31/19 08:00 97 05/31/19 07:25 99.6 F 94 16 163/61 H 97 05/31/19 04:14 99.3 F 108 H 20 149/69 H 95 05/31/19 00:56 98.1 F 71 20 120/65 97 Weight Weight 191 lb 6.4 oz Most Recent Monitor Data Heart Rate from ECG 83 NIBP 119/79 NIBP BP-Mean 92 Respiration from ECG 16 SpO2 99 I&O: 05/30/19 05/31/19 06/01/19 06:59 06:59 06:59 Intake Total 2728 2233 240 Output Total 1800 1950 Balance 928 283 240 Result Diagrams: 05/29/19 04:00 05/31/19 05:38 Additional Labs: Accuchecks 05/31/19 05/30/19 05/30/19 06:03 19:42 15:56 POC Glucose 209 H 209 H 216 H 05/30/19 11:13 POC Glucose 217 H Phys Exam - Physical Examination Constitutional: NAD HEENT: PERRLA, moist MMs, sclera anicteric Neck: no JVD, supple Respiratory: no wheezing, no rales, no rhonchi Cardiovascular: RRR, no significant murmur, no rub Gastrointestinal: soft, non-tender, no distention, positive bowel sounds Musculoskeletal: no edema, pulses present Neurological: non-focal parkinson tremor Lymphatic: no nodes Psychiatric: normal affect Skin: no rash, normal turgor Dx/Plan (1) Acute kidney failure Status: Resolved Comment: Due to dehydration and sepsis, Improving (2) Acute metabolic encephalopathy Code(s): G93.41 - METABOLIC ENCEPHALOPATHY Status: Resolved (3) High anion gap metabolic acidosis Code(s): E87.2 - ACIDOSIS Status: Resolved (4) Hypernatremia Code(s): E87.0 - HYPEROSMOLALITY AND HYPERNATREMIA Status: Acute (5) Sepsis with acute organ dysfunction Code(s): A41.9 - SEPSIS, UNSPECIFIED ORGANISM; R65.20 - SEVERE SEPSIS WITHOUT SEPTIC SHOCK Status: Acute (6) Type 2 myocardial infarction Code(s): I21.A1 - MYOCARDIAL INFARCTION TYPE 2 Status: Acute (7) UTI (urinary tract infection) Status: Acute (8) Anxiety and depression Code(s): F41.9 - ANXIETY DISORDER, UNSPECIFIED; F32.9 - MAJOR DEPRESSIVE DISORDER, SINGLE EPISODE, UNSPECIFIED Status: Chronic (9) BPH (benign prostatic hyperplasia) Code(s): N40.0 - BENIGN PROSTATIC HYPERPLASIA WITHOUT LOWER URINRY TRACT SYMP Status: Chronic (10) DM2 (diabetes mellitus, type 2) Status: Chronic Comment: (11) HTN (hypertension) Code(s): I10 - ESSENTIAL (PRIMARY) HYPERTENSION Status: Chronic Qualifiers: Comment: (12) Nephrolithiasis Status: Chronic (13) Parkinson disease Code(s): G20 - PARKINSON'S DISEASE Status: Chronic Comment: (14) Physical deconditioning Code(s): R53.81 - OTHER MALAISE Status: Chronic (15) Schizoaffective disorder Code(s): F25.9 - SCHIZOAFFECTIVE DISORDER, UNSPECIFIED Status: Chronic (16) Hypotension Status: Resolved (17) Lactic acidosis Code(s): E87.2 - ACIDOSIS Status: Resolved - Plan cont current plan of care, continue antibiotics * change IVF dex with water 50 ml per hour * continue meropenam * possible ECSW on saturday. * medication reviewed as below * symptomatic treatment Review of Systems - Review of Systems Constitutional: weakness. negative: fever, chills, sweats, malaise, other ENT: negative: Ear Pain, Ear Discharge, Nose Pain, Nose Discharge, Nose Congestion, Mouth Pain, Mouth Swelling, Throat Pain, Throat Swelling, Other Respiratory: negative: Cough, Dry, Shortness of Breath, Hemoptysis, SOB with Excertion, Pleuritic Pain, Sputum, Wheezing Cardiovascular: negative: chest pain, palpitations, orthopnea, paroxysmal nocturnal dyspnea, edema, light headedness, other Gastrointestinal: negative: Nausea, Vomiting, Abdominal Pain, Diarrhea, Constipation, Melena, Hematochezia, Other Genitourinary: negative: Dysuria, Frequency, Incontinence, Hematuria, Retention , Other Musculoskeletal: negative: Neck Pain, Shoulder Pain, Arm Pain, Back Pain, Hand Pain, Leg Pain, Foot Pain, Other Skin: negative: Rash, Lesions, David, Bruising, Other Other: not reliable due to cognitive status - Medications/Allergies Allergies/Adverse Reactions: Allergies Allergy/AdvReac Type Severity Reaction Status Date / Time No Known Drug Allergies Allergy Unknown Verified 05/28/19 15:21 Medications: Current Medications Acetaminophen (Tylenol) 650 mg PO Q4H PRN PRN Reason: Headache/Fever/Mild Pain (1-3) Acetaminophen (Tylenol) 650 mg [place] Q4H PRN PRN Reason: Fever > 101 Last Admin: 05/29/19 00:02 Dose: 650 mg Artificial Tears (Tears Naturale) 2 drop EA EYE PRN PRN PRN Reason: Dry Eyes Atorvastatin Calcium (Lipitor) 20 mg PO HS [facility] Last Admin: 05/30/19 20:58 Dose: 20 mg Bisacodyl (Dulcolax) 10 mg [place] DAILYPRN PRN PRN Reason: Constipation Carbidopa/Levodopa (Sinemet 25-250) 1 tab PO TID [facility] Last Admin: 05/31/19 08:27 Dose: 1 tab Dextrose/Water (Dextrose 50%) 25 gm SLOW IVP PRN PRN PRN Reason: Hypoglycemia Docusate Sodium (Colace) 100 mg PO BID [facility] Last Admin: 05/31/19 08:06 Dose: 100 mg Glucagon (Glucagon) 1 mg IM PRN PRN PRN Reason: Hypoglycemia Guaifenesin (Robitussin Sf) 200 mg PO Q4H PRN PRN Reason: Cough Heparin Sodium (Porcine) (Heparin) 5,000 units SC BID [facility] Last Admin: 05/31/19 08:05 Dose: 5,000 units Meropenem 500 mg/ Sodium (Chloride) 100 mls @ 200 mls/hr IVPB 0400,1200,2000 [facility] Last Admin: 05/31/19 11:39 Dose: 100 mls Dextrose/Water (D5w) 1,000 mls @ 0 mls/hr IV .Q0M PRN PRN Reason: Hypoglycemia Insulin Glargine 15 units/ (Miscellaneous Medication) 0.15 mls @ 0 mls/hr SC BID [facility] Last Admin: 05/31/19 08:07 Dose: 0.15 mls Dextrose/Water (D5w) 1,000 mls @ 50 mls/hr IV .Q20H [facility] Last Admin: 05/31/19 08:04 Dose: 1,000 mls Sodium Phosphate 15 mmol/ (Sodium Chloride) 255 mls @ 42.5 mls/hr IVPB NOW [facility] Stop: 05/31/19 13:00 Last Admin: 05/31/19 08:25 Dose: 255 mls Insulin Human Lispro (Humalog) 0 units SC .MODERATE SLIDING SC PRN PRN Reason: Moderate Correctional Scale Last Admin: 05/31/19 06:02 Dose: 4 unit Insulin Human Lispro (Humalog) 0 units SC .BEDTIME SLIDING SC PRN PRN Reason: Bedtime Correctional Scale Levothyroxine Sodium (Synthroid) 50 mcg PO DAILY [facility] Last Admin: 05/31/19 08:06 Dose: 50 mcg Loperamide HCl (Imodium) 2 mg PO PRN PRN PRN Reason: Diarrhea/Loose Stools Lubiprostone (Amitiza) 24 mcg PO DAILY [facility] Last Admin: 05/31/19 08:27 Dose: 24 mcg [facility] Last Admin: 05/31/19 08:06 Dose: 500 mg Non-Formulary Medication (Clomipramine Hcl [An[facility]franil]) [facility] Olanzapine (Zyprexa) 5 mg PO [facility] Last Admin: 05/30/19 20:58 Dose: 5 mg Ondansetron HCl (Zofran Odt) 4 mg SL Q6H PRN PRN Reason: Nausea/Vomiting Ondansetron HCl (Zofran) 4 mg IVP Q6H PRN PRN Reason: Nausea/Vomiting Oxcarbazepine (Trileptal) 600 mg PO [facility] Last Admin: 05/30/19 20:58 Dose: 600 mg Senna/Docusate Sodium (Senokot S) 2 tab PO BID PRN PRN Reason: Constipation Sertraline HCl (Zoloft) 100 mg PO DAILY [facility] Last Admin: 05/31/19 08:06 Dose: 100 mg Sodium Chloride ([place] Nasal [place] 0.65%) 0 ml EA NARE QIDPRN PRN PRN Reason: Nasal Congestion Sodium Chloride (Flush - Normal Saline) 10 ml IVF Q12HR [facility] Last Admin: 05/31/19 08:28 Dose: Not Given Sodium Chloride (Flush - Normal Saline) 10 ml IVF PRN PRN PRN Reason: Saline Flush Last Admin: 05/30/19 20:58 Dose: 10 ml Tamsulosin HCl (Flomax) 0.4 mg PO DAILY [facility] Last Admin: 05/31/19 08:06 Dose: 0.4 mg Throat Lozenges (Cepastat Lozenges) 1 pedro luis PO Q2H PRN PRN Reason: Sore Throat Venlafaxine HCl (Effexor Xr) 150 mg PO DAILY [facility] Last Admin: 05/31/19 08:06 Dose: 150 mg Verapamil HCl (Calan Er) 180 mg PO DAILY [facility] Last Admin: 05/31/19 08:28 Dose: 180 mg
[2019-05-31] MEDS: OXcarbazepine 300 MG TAB PO SCH (21:29)
[2019-05-31] MEDS: Atorvastatin Calcium 20 MG TAB PO SCH (21:29)
[2019-05-31] MEDS: OLANZapine 5 MG TAB PO SCH (21:29)
[2019-06-01] MEDS: Meropenem 500 MG in Sodium Chloride 0.9% 100 ML IVPB SCH ×3 (04:08→21:10)
[2019-06-01] MEDS: Dextrose 5% in Water 1,000 ML IV SCH ×2 (05:42→21:08)
[2019-06-01] MEDS: HumaLOG 300 UNITS/3 ML VIAL SC PRN ×2 (05:46→11:56)
[2019-06-01 05:47] LABS: #Basophils 0.1 thou/uL (0.0-0.2); #Eosinphils 0.3 thou/uL (0.0-0.7); #Lymphocytes 3.8 thou/uL (1.20-3.40); #Monocytes 0.8 thou/uL (0.11-0.59); #Neutrophils 8.6 thou/uL (1.40-6.50); %Basophils 0.6 % (0.0-1.0); %Eosinophils 2.5 % (0.0-10.0); %Lymphocytes 28.1 % (21.0-51.0); %Monocytes 5.6 % (0.0-10.0); %Neutrophils 63.2 % (42.0-75.0); Hemoglobin 12.5 g/dL (14.0-18.0); Mean Corpuscular HGB CONC 32.1 g/dL (32.0-36.0); Mean Corpuscular Hemoglobin 31.4 pg (27.0-31.0); Mean Corpuscular Volume 97.9 fL (78.0-98.0); Mean Platelet Volume 8.9 fL (7.4-10.4); Platelet Count 230 thou/uL (130-400); RBC Distribution Width 12.1 % (11.5-14.5); White Blood Cell (WBC) Count 13.6 thou/uL (4.8-10.8)
[2019-06-01 06:11] LABS: ALT (SGPT) 21 U/L (8-55); AST (SGOT) 24 U/L (5-34); Alkaline Phosphatase 77 U/L (40-150); Anion Gap 13 mmol/L (10-20); BUN (Urea Nitrogen) 27 mg/dL (8.4-25.7); Bilirubin, Total 0.4 mg/dL (0.2-1.2); Calc. Creatinine Clearance 92 mL/min (70-130); Calcium 9.6 mg/dL (7.8-10.44); Carbon Dioxide 24 mmol/L (23-31); Chloride 118 mmol/L (98-107); Estimated GFR-MDRD 78; Globulin 3.3 g/dL (2.4-3.5); Glucose 233 mg/dL (80-115); Magnesium 1.9 mg/dL (1.6-2.6); Potassium 3.8 mmol/L (3.5-5.1); Protein, Total 6.3 g/dL (5.8-8.1); Sodium 151 mmol/L (136-145)
[2019-06-01 06:17] LABS: Phosphorus 2.4 mg/dL (2.3-4.7)
[2019-06-01] MEDS: Carbidopa/Levodopa 25-250 mg Tablet PO SCH ×3 (08:46→22:01)
[2019-06-01] MEDS: metFORMIN 500 MG TAB PO SCH ×2 (08:47→17:46)
[2019-06-01] MEDS: Levothyroxine Sodium 50 MCG TAB PO SCH (08:47)
[2019-06-01] MEDS: Docusate 100 MG CAP PO SCH ×2 (08:47→21:15)
[2019-06-01] MEDS: Venlafaxine HCl XR 150 MG CAP PO SCH (08:48)
[2019-06-01] MEDS: Tamsulosin HCl 0.4 MG CAP PO SCH (08:48)
[2019-06-01] MEDS: Heparin 5,000 UNITS/ML VIAL SC SCH ×2 (08:49→21:15)
[2019-06-01] MEDS: Insulin Glargine 15 UNITS in Pre-Filled Syringe 1 EACH SC SCH ×2 (08:50→21:29)
[2019-06-01] MEDS: Lubiprostone 24 MCG CAP PO SCH (08:50)
[2019-06-01] MEDS ORDERED: Sodium Chloride 0.45% 1,000 ML IV SCH (12:15)
--- NOTE | 2019-06-01 14:39 | PRG ---
DATE OF SERVICE: 06/01/2019 The patient was seen today in room 4426 at [facility]. He still has Hathaway catheter in. His urine remains clear. He has stable vital signs. He has been afebrile. He still was not oriented. His sodium still 151 and creatinine 0.96. It is uncertain as to whether we will be able to treat him this Saturday unless his electrolytes improve, although we could consider having Anesthesia look at him tomorrow to be the day before the scheduled surgery to see if they felt he could tolerate anesthetic, it may be enough to put this off until he improves clinically; however. I will follow along with you. Job ID: [id number]
[2019-06-01] MEDS ORDERED: Nystatin Powder 15 GM BOT TOP PRN (15:07)
--- NOTE | 2019-06-01 15:10 | PDOC.PALCO ---
Palliative Care Consult - Consult Details Requesting Physician: Dr Gomez Reason for Consult: goals of care, advance directives assistance - Pertinent HPI 69 year old male with Parkinson disease, history reveals recurrent complications related to disease progression. Mr Arevalo had a recent hospital admission secondary to urinary complications/UTI and nephrolithiasis and a stent was placed in his ureter with subsequent need for koehler placement. Koehler was removed, patient discharged to [facility] and to be followed by Dr Campo. May 28 patient returned to the emergency room from the care home facility secondary to altered mental status for unspecified period of time. Admitted to IMCU secondary to encephalopathy and hypotension. Consult for palliative care ordered for goals of care and assist with advance directives. - Pertinent PMH DM II, GERD, Hypertension, Parkinsons Disease, Obesity, Chronic UTI, Physical Deconditioning, frequent falls, benign enlargement of prostate,Schizoaffective disorder with anxiety and depression. - Social History Smoking Status: Never smoker Smoking: no tobacco exposure Alcohol Use: none Drug Use History: none Living Situation: care home resident - Medications MAR Reviewed: Yes - Allergies Allergies/Adverse Reactions: Allergies Allergy/AdvReac Type Severity Reaction Status Date / Time No Known Drug Allergies Allergy Unknown Verified 05/28/19 15:21 - Objective Vital Signs: Vital Signs - Most Recent Temp Pulse Resp BP Pulse Ox 98.2 F 96 18 145/74 H 95 06/01/19 11:20 06/01/19 11:20 06/01/19 11:20 06/01/19 11:20 06/01/19 11:20 Palliative Performance Scale: 30 - Physical Exam Constitutional: confusion HEENT: moist MMs Deviation from normal: right eyelid pitosis Respiratory: unlabored breathing Deviation from normal: mildly shallow Cardiovascular: RRR Gastrointestinal: soft, positive bowel sounds Musculoskeletal: edema present Deviation from normal: confused, flat affect Deviation from normal: Pallor - Problem List (1) Palliative care encounter Code(s): Z51.5 - ENCOUNTER FOR PALLIATIVE CARE Current Visit: Yes Status: Acute (2) Parkinson disease Code(s): G20 - PARKINSON'S DISEASE Current Visit: Yes Status: Chronic (3) Physical deconditioning Code(s): R53.81 - OTHER MALAISE Current Visit: Yes Status: Chronic (4) Acute metabolic encephalopathy Code(s): G93.41 - METABOLIC ENCEPHALOPATHY Current Visit: Yes Status: Resolved - Plan/Recommendations Plan: *Patient lethargic, soft speech, patient arousable but would return to sleep state. *Merlyn Greenwood Palliative Care RN called and left voice mail with patients sister who is MPOA. *Will attempt to establish a meeting to again discuss Resuscitation status and identify if inline with patients goals *Revisit what Mr Parra goals of his care are and discuss possibility of recurrent urinary complications *Establish Goals inline with Parkinsons and continued decline. [60] minutes spent on this encounter with >50% of the time in counseling and coordination of care. Thank you for this very appropriate consult.
[2019-06-01] MEDS: Nystatin Powder 15 GM BOT TOP SCH ×2 (15:50→21:13)
--- NOTE | 2019-06-01 18:17 | PDOC.PN ---
- Subjective Encounter Start Date: 06/01/19 Encounter Start Time: 08:30 Subjective: lethargic, awakens easily, no sob -: has not gotten up so far this admission -: not fully oriented - Objective Resuscitation Status - Order Detail: 05/28/19 13:23 Resuscitation Status Routine Resuscitation Status: FULL: Full Resuscitation MAR Reviewed: Yes Vital Signs & Weight: Vital Signs (12 hours) Temp Pulse Resp BP Pulse Ox 06/01/19 16:00 99.0 F 95 18 141/72 H 95 06/01/19 11:20 98.2 F 96 18 145/74 H 95 06/01/19 07:14 100.0 F H 102 H 18 150/74 H 95 Weight Weight 191 lb 6.4 oz Most Recent Monitor Data Heart Rate from ECG 83 NIBP 119/79 NIBP BP-Mean 92 Respiration from ECG 16 SpO2 99 I&O: 05/31/19 06/01/19 06/02/19 06:59 06:59 06:59 Intake Total 2233 1667 180 Output Total 1950 1600 700 Balance 283 67 -520 Result Diagrams: 06/01/19 05:32 06/01/19 05:32 Additional Labs: Accuchecks 06/01/19 06/01/19 06/01/19 16:39 11:29 05:47 POC Glucose 150 H 222 H 218 H 05/31/19 19:51 POC Glucose 195 H Phys Exam - Physical Examination HEENT: PERRLA, sclera anicteric Neck: no JVD, supple Respiratory: no wheezing, no rales Cardiovascular: RRR, no significant murmur Gastrointestinal: soft, no distention, positive bowel sounds Musculoskeletal: pulses present, edema present Neurological: non-focal, moves all 4 limbs Dx/Plan (1) Hypernatremia Code(s): E87.0 - HYPEROSMOLALITY AND HYPERNATREMIA Status: Acute (2) Sepsis with acute organ dysfunction Code(s): A41.9 - SEPSIS, UNSPECIFIED ORGANISM; R65.20 - SEVERE SEPSIS WITHOUT SEPTIC SHOCK Status: Acute (3) Type 2 myocardial infarction Code(s): I21.A1 - MYOCARDIAL INFARCTION TYPE 2 Status: Resolved (4) UTI (urinary tract infection) Status: Acute Qualifiers: Urinary tract infection type: acute cystitis (5) Anxiety and depression Code(s): F41.9 - ANXIETY DISORDER, UNSPECIFIED; F32.9 - MAJOR DEPRESSIVE DISORDER, SINGLE EPISODE, UNSPECIFIED Status: Chronic (6) BPH (benign prostatic hyperplasia) Code(s): N40.0 - BENIGN PROSTATIC HYPERPLASIA WITHOUT LOWER URINRY TRACT SYMP Status: Chronic (7) DM2 (diabetes mellitus, type 2) Status: Chronic Qualifiers: Diabetes mellitus assisted insulin use: 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 Diabetes mellitus complication status: with other specified complication Qualified Code (s): E11.69 - Type 2 diabetes mellitus with other specified complication; Z79.4 - custodial (current) use of insulin Comment: (8) HTN (hypertension) Code(s): I10 - ESSENTIAL (PRIMARY) HYPERTENSION Status: Chronic Qualifiers: Comment: (9) Nephrolithiasis Status: Chronic (10) Parkinson disease Code(s): G20 - PARKINSON'S DISEASE Status: Chronic Comment: (11) Physical deconditioning Code(s): R53.81 - OTHER MALAISE Status: Chronic (12) Schizoaffective disorder Code(s): F25.9 - SCHIZOAFFECTIVE DISORDER, UNSPECIFIED Status: Chronic (13) Acute kidney failure Status: Resolved Comment: Due to dehydration and sepsis, Improving (14) Acute metabolic encephalopathy Code(s): G93.41 - METABOLIC ENCEPHALOPATHY Status: Acute Comment: resolving - Plan diabetes is labile due to D5W, is on lantus, metformin -: change iv fluids to 1/2 NS, d/w will evaluate pt -: is on multiple psychotropic meds: trileptal, zyprexa, venlafaxine, zoloft -: continue meropenem, lipitor, sinemet, amitiza, flomax, verapamil -: prognosis guarded. PT to mobilize as tolerated, oob to chair/amb as tolerat * . Review of Systems - Medications/Allergies Allergies/Adverse Reactions: Allergies Allergy/AdvReac Type Severity Reaction Status Date / Time No Known Drug Allergies Allergy Unknown Verified 05/28/19 15:21 Medications: Current Medications Acetaminophen (Tylenol) 650 mg PO Q4H PRN PRN Reason: Headache/Fever/Mild Pain (1-3) Acetaminophen (Tylenol) 650 mg [place] Q4H PRN PRN Reason: Fever > 101 Last Admin: 05/29/19 00:02 Dose: 650 mg Artificial Tears (Tears Naturale) 2 drop EA EYE PRN PRN PRN Reason: Dry Eyes Atorvastatin Calcium (Lipitor) 20 mg PO HS [facility] Last Admin: 05/31/19 21:29 Dose: 20 mg Bisacodyl (Dulcolax) 10 mg [place] DAILYPRN PRN PRN Reason: Constipation Carbidopa/Levodopa (Sinemet 25-250) 1 tab PO TID [facility] Last Admin: 06/01/19 15:28 Dose: 1 tab Dextrose/Water (Dextrose 50%) 25 gm SLOW IVP PRN PRN PRN Reason: Hypoglycemia Docusate Sodium (Colace) 100 mg PO BID [facility] Last Admin: 06/01/19 08:47 Dose: 100 mg Glucagon (Glucagon) 1 mg IM PRN PRN PRN Reason: Hypoglycemia Guaifenesin (Robitussin Sf) 200 mg PO Q4H PRN PRN Reason: Cough Heparin Sodium (Porcine) (Heparin) 5,000 units SC BID [facility] Last Admin: 06/01/19 08:49 Dose: 5,000 units Meropenem 500 mg/ Sodium (Chloride) 100 mls @ 200 mls/hr IVPB 0400,1200,2000 [facility] Last Admin: 06/01/19 11:53 Dose: 100 mls Dextrose/Water (D5w) 1,000 mls @ 0 mls/hr IV .Q0M PRN PRN Reason: Hypoglycemia Insulin Glargine 15 units/ (Miscellaneous Medication) 0.15 mls @ 0 mls/hr SC BID [facility] Last Admin: 06/01/19 08:50 Dose: 0.15 mls Sodium Chloride (1/2 Normal Saline) 1,000 mls @ 100 mls/hr IV .Q10H [facility] Last Admin: 06/01/19 13:20 Dose: 1,000 mls Insulin Human Lispro (Humalog) 0 units SC .MODERATE SLIDING SC PRN PRN Reason: Moderate Correctional Scale Last Admin: 06/01/19 11:56 Dose: 4 unit Insulin Human Lispro (Humalog) 0 units SC .BEDTIME SLIDING SC PRN PRN Reason: Bedtime Correctional Scale Levothyroxine Sodium (Synthroid) 50 mcg PO DAILY [facility] Last Admin: 06/01/19 08:47 Dose: 50 mcg Loperamide HCl (Imodium) 2 mg PO PRN PRN PRN Reason: Diarrhea/Loose Stools Lubiprostone (Amitiza) 24 mcg PO DAILY [facility] Last Admin: 06/01/19 08:50 Dose: 24 mcg Metformin HCl (Glucophage) 500 mg PO BID[facility] Last Admin: 06/01/19 17:46 Dose: 500 mg Nystatin (Mycostatin Powder) 0 gm TOP TID [facility] Last Admin: 06/01/19 15:50 Dose: 1 applic Nystatin (Mycostatin Powder) 0 gm TOP PRN PRN PRN Reason: Rash/Topical Irritation Olanzapine (Zyprexa) 5 mg PO [facility] Last Admin: 05/31/19 21:29 Dose: 5 mg Ondansetron HCl (Zofran Odt) 4 mg SL Q6H PRN PRN Reason: Nausea/Vomiting Ondansetron HCl (Zofran) 4 mg IVP Q6H PRN PRN Reason: Nausea/Vomiting Oxcarbazepine (Trileptal) 600 mg PO [facility] Last Admin: 05/31/19 21:29 Dose: 600 mg Senna/Docusate Sodium (Senokot S) 2 tab PO BID PRN PRN Reason: Constipation Sertraline HCl (Zoloft) 100 mg PO DAILY [facility] Last Admin: 06/01/19 08:47 Dose: 100 mg Sodium Chloride ([place] Nasal [place] 0.65%) 0 ml EA NARE QIDPRN PRN PRN Reason: Nasal Congestion Sodium Chloride (Flush - Normal Saline) 10 ml IVF Q12HR [facility] Last Admin: 06/01/19 08:51 Dose: 10 ml Sodium Chloride (Flush - Normal Saline) 10 ml IVF PRN PRN PRN Reason: Saline Flush Last Admin: 05/31/19 21:28 Dose: 10 ml Tamsulosin HCl (Flomax) 0.4 mg PO DAILY [facility] Last Admin: 06/01/19 08:48 Dose: 0.4 mg Throat Lozenges (Cepastat Lozenges) 1 pedro luis PO Q2H PRN PRN Reason: Sore Throat Venlafaxine HCl (Effexor Xr) 150 mg PO DAILY [facility] Last Admin: 06/01/19 08:48 Dose: 150 mg Verapamil HCl (Calan Er) 180 mg PO DAILY [facility] Last Admin: 06/01/19 08:48 Dose: 180 mg
--- NOTE | 2019-06-01 18:53 | CON ---
DATE OF CONSULTATION: REQUESTING PHYSICIAN: Dr. Tucker. REASON FOR CONSULTATION: Hypernatremia. IMPRESSION: Hypernatremia, this is in the context of free water deficit. PLAN: We will start this patient on free water repletion. The amount of glucose in 5% dextrose is not much and this can be addressed with adjustment in the hypoglycemic agents. HISTORY: This is a 69-year-old gentleman with schizophrenia and Parkinson disease, who recently in Hathaway therapy status post stent, yet to undergo ESWL. The patient re-presented here with symptoms and signs of severe sepsis in the context of possible infected nephrolithiasis. The patient noted on presentation with sodium of 150 as well as elevated creatinine, started on free water repletion; however, sodium has remained above 150, possible need for renal consultation. PAST MEDICAL HISTORY: Significant for; 1. Type 2 diabetes. 2. Reflux disease. 3. Hypertension. 4. Dyslipidemia. 5. Parkinson disease. 6. Obesity. 7. Recurrent urinary tract infection with fluid deconditioning. 8. BPH. 9. Schizoaffective disorder with anxiety and depression. SOCIAL HISTORY: [place] resident. No alcohol, no tobacco, no illicit drug use. FAMILY HISTORY: Not significant related to present illness. ALLERGIES: NO KNOWN DRUG ALLERGIES. REVIEW OF SYSTEMS: As documented in the body of the history. All other systems were reviewed and found not to be significantly related to presenting illness. PHYSICAL EXAMINATION: GENERAL: The patient was found to have evidence of dehydration with dry oral mucosa noted with the following vital signs. VITAL SIGNS: Afebrile, temperature 97.8, pulse 98, respiratory rate of 20, and blood pressure 102/58. HEENT: Unremarkable. CARDIOVASCULAR SYSTEM: First and second heart sounds were heard. RESPIRATORY SYSTEM: Clear to auscultation. DIGESTIVE SYSTEM: Benign abdomen with positive bowel sounds. EXTREMITIES: No peripheral edema. SKIN: No new gross rash. LYMPHATICS: No peripheral lymphadenopathy. ASSESSMENT: In summary, a 69-year-old gentleman with second nephrolithiasis, now experiencing worsening hypernatremia. Thank you for this consultation. We will follow with you. Job ID: [id number]
[2019-06-01] MEDS: OLANZapine 5 MG TAB PO SCH (21:14)
[2019-06-01] MEDS: OXcarbazepine 300 MG TAB PO SCH (21:14)
[2019-06-01] MEDS: Atorvastatin Calcium 20 MG TAB PO SCH (21:15)
[2019-06-02] MEDS: Meropenem 500 MG in Sodium Chloride 0.9% 100 ML IVPB SCH ×3 (05:00→21:00)
[2019-06-02] MEDS: Dextrose 5% in Water 1,000 ML IV SCH ×3 (05:38→12:23)
[2019-06-02 06:49] LABS: Anion Gap 12 mmol/L (10-20); BUN (Urea Nitrogen) 20 mg/dL (8.4-25.7); Calc. Creatinine Clearance 109 mL/min (70-130); Carbon Dioxide 23 mmol/L (23-31); Chloride 114 mmol/L (98-107); Estimated GFR-MDRD Greater than 90; Glucose 251 mg/dL (80-115); Phosphorus 2.3 mg/dL (2.3-4.7); Potassium 3.8 mmol/L (3.5-5.1); Sodium 145 mmol/L (136-145)
[2019-06-02] MEDS: Levothyroxine Sodium 50 MCG TAB PO SCH (08:09)
[2019-06-02] MEDS: Venlafaxine HCl XR 150 MG CAP PO SCH (08:09)
[2019-06-02] MEDS: Tamsulosin HCl 0.4 MG CAP PO SCH (08:09)
[2019-06-02] MEDS: Lubiprostone 24 MCG CAP PO SCH (08:09)
[2019-06-02] MEDS: metFORMIN 500 MG TAB PO SCH ×2 (08:09→16:10)
[2019-06-02] MEDS: Docusate 100 MG CAP PO SCH ×2 (08:09→21:03)
[2019-06-02] MEDS: Insulin Glargine 15 UNITS in Pre-Filled Syringe 1 EACH SC SCH ×2 (08:10→20:58)
[2019-06-02] MEDS: Nystatin Powder 15 GM BOT TOP SCH ×3 (08:10→21:06)
[2019-06-02] MEDS: Carbidopa/Levodopa 25-250 mg Tablet PO SCH ×3 (08:10→21:03)
[2019-06-02] MEDS: Heparin 5,000 UNITS/ML VIAL SC SCH ×2 (08:11→21:05)
--- NOTE | 2019-06-02 11:24 | PRG ---
DATE OF SERVICE: 06/02/2019 SUBJECTIVE: The patient is seen and examined. Noted with the following vital signs. OBJECTIVE: VITAL SIGNS: Afebrile, temperature 98.5, pulse 89, respiratory rate of 20, and O2 saturation 96% with blood pressure 129/69. HEENT: Unremarkable. Moist oral mucosa. No conjunctival injection or icterus. NECK: Supple. CARDIOVASCULAR SYSTEM: First and second heart sounds were heard. RESPIRATORY SYSTEM: Clear to auscultation. DIGESTIVE SYSTEM: Revealed a benign abdomen. Positive bowel sounds. EXTREMITIES: No peripheral edema. SKIN: No new gross rash. LYMPHATICS: No peripheral lymphadenopathy. LABORATORY INVESTIGATION: Significant for sodium has come down to 145. IMPRESSION: Hypernatremia in the context of free water deficit, seems to be responding to free water repletion. PLAN: 1. We will deescalate the free water repletion by cutting down the IV fluid rate from 125 to 75 mL/hour. 2. Continue to monitor the electrolytes. 3. Further management to be dependent on the clinical course. Job ID: [id number]
--- NOTE | 2019-06-02 12:21 | PDOC.PALPN ---
Palliative Progress Note - Subjective Patient slightly more alert today upon arrival into room Delayed speech and memory recall. Lethargic, did drift to sleep state during assessment, but was arousable. Significant muscle weakness atrophy. Denies pain, koehler draining dark yellow urine with slight bloody mucous noted.Visited with Dr Tucker, he suggested to discuss comfort measures for patient when we conference with the patients sister. Phone call with sister who is MPOA to discus resuscitation status, and goals for patient upon discharge. - Objective Vital Signs: Vital Signs - Most Recent Temp Pulse Resp BP Pulse Ox 99.2 F 96 20 160/82 H 96 06/02/19 07:48 06/02/19 07:48 06/02/19 07:48 06/02/19 07:48 06/02/19 07:48 - Physical Exam Constitutional: confusion Deviation from normal: lethargic, speech delayed soft, chronically ill appearing HEENT: moist MMs, EOMI Deviation from normal: improved pitosis from yesterday to right eye Respiratory: no wheezing, unlabored breathing Deviation from normal: diminished to bases bilaterally Cardiovascular: RRR Gastrointestinal: soft, positive bowel sounds Musculoskeletal: edema present Deviation from normal: flat affect Deviation from normal: pallor, fragile skin - Assessment (1) Palliative care encounter Code(s): Z51.5 - ENCOUNTER FOR PALLIATIVE CARE Current Visit: Yes Status: Acute (2) Parkinson disease Code(s): G20 - PARKINSON'S DISEASE Current Visit: Yes Status: Chronic (3) Physical deconditioning Code(s): R53.81 - OTHER MALAISE Current Visit: Yes Status: Chronic (4) Acute metabolic encephalopathy Code(s): G93.41 - METABOLIC ENCEPHALOPATHY Current Visit: Yes Status: Acute - Plan Plan:Discussed patient disease progression at length with patient sister Merle. *Merle understands DNAR and is considering making her brother a DNAR after visiting with her father. *Dr Leiva is who will follow patient upon discharge from [facility] back to [facility] *Dr Tucker to communicate with Dr Leiva if sister decides to have comfort measures for her brother upon discharge. *Merle to follow up with palliative care team after noon 06/02 to give decision on DNAR status and discharge goals. [90] minutes spent on this encounter with >50% of the time in counseling and coordination of care.
--- NOTE | 2019-06-02 13:33 | PDOC.HOSPP ---
- Subjective Subjective: awake, not oriented. Not in distress - Objective Vital Signs & Weight: Vital Signs (12 hours) Temp Pulse Resp BP Pulse Ox 06/02/19 12:00 98.8 F 77 18 141/72 H 96 06/02/19 08:00 96 06/02/19 07:48 99.2 F 96 20 160/82 H 96 Weight Weight 191 lb 6.4 oz Most Recent Monitor Data Heart Rate from ECG 83 NIBP 119/79 NIBP BP-Mean 92 Respiration from ECG 16 SpO2 99 I&O: 06/01/19 06/02/19 06/03/19 06:59 06:59 06:59 Intake Total 1667 2330 150 Output Total 1600 1400 450 Balance 67 930 -300 Result Diagrams: 06/01/19 05:32 06/02/19 05:41 Additional Labs: Accuchecks 06/02/19 06/02/19 06/01/19 11:41 03:33 21:29 POC Glucose 232 H 245 H 168 H 06/01/19 06/01/19 19:49 16:39 POC Glucose 173 H 150 H ROS - Review of Systems All systems: All other ROS were reviewed and found negative. - Medication Medications: Active Medications Generic Name Dose Route Start Last Admin Trade Name Freq PRN Reason Stop Dose Admin Acetaminophen 650 mg 05/28/19 14:46 05/29/19 00:02 Tylenol RI 650 mg Q4H PRN Administration Fever > 101 Atorvastatin Calcium 20 mg 05/30/19 21:00 06/01/19 21:15 Lipitor PO 20 mg HS KEMAL Administration Carbidopa/Levodopa 1 tab 05/30/19 15:00 06/02/19 08:10 Sinemet 25-250 PO 1 tab TID KEMAL Administration Docusate Sodium 100 mg 05/30/19 21:00 06/02/19 08:09 Colace PO 100 mg BID KEMAL Administration Heparin Sodium (Porcine) 5,000 units 05/28/19 21:00 06/02/19 08:11 Heparin SC 5,000 units BID KEMAL Administration Meropenem 500 mg/ Sodium 100 mls @ 200 mls/hr 05/28/19 20:00 06/02/19 12:32 Chloride IVPB 100 mls 0400,1200,2000 KEMAL Administration Insulin Glargine 15 units/ 0.15 mls @ 0 mls/hr 05/30/19 21:00 06/02/19 08:10 Miscellaneous Medication SC 0.15 mls BID KEMAL Administration Dextrose/Water 1,000 mls @ 75 mls/hr 06/02/19 11:04 06/02/19 12:23 D5w IV 1,000 mls .[id number] KEMAL Administration Insulin Human Lispro 0 units 05/28/19 14:46 06/01/19 11:56 Humalog SC 4 unit .MODERATE SLIDING SC PRN Administration Moderate Correctional Scale Insulin Human Lispro 0 units 05/28/19 14:46 06/02/19 05:41 Humalog SC 2 unit .BEDTIME SLIDING SC PRN Administration Bedtime Correctional Scale Levothyroxine Sodium 50 mcg 05/31/19 09:00 06/02/19 08:09 Synthroid PO 50 mcg DAILY KEMAL Administration Lubiprostone 24 mcg 05/31/19 09:00 06/02/19 08:09 Amitiza PO 24 mcg DAILY KEMAL Administration Metformin HCl 500 mg 05/31/19 08:00 06/02/19 08:09 Glucophage PO 500 mg BID-WM KEMAL Administration Nystatin 0 gm 06/01/19 15:00 06/02/19 08:10 Mycostatin Powder TOP 1 applic TID KEMAL Administration Olanzapine 5 mg 05/30/19 21:00 06/01/19 21:14 Zyprexa PO 5 mg HS KMEAL Administration Oxcarbazepine 600 mg 05/30/19 21:00 06/01/19 21:14 Trileptal PO 600 mg HS KEMAL Administration Sertraline HCl 100 mg 05/31/19 09:00 06/02/19 08:09 Zoloft PO 100 mg DAILY KEMAL Administration Sodium Chloride 10 ml 05/29/19 21:00 06/02/19 08:11 Flush - Normal Saline IVF 10 ml Q12HR KEMAL Administration Sodium Chloride 10 ml 05/29/19 10:21 05/31/19 21:28 Flush - Normal Saline IVF 10 ml PRN PRN Administration Saline Flush Tamsulosin HCl 0.4 mg 05/31/19 09:00 06/02/19 08:09 Flomax PO 0.4 mg DAILY KEMAL Administration Venlafaxine HCl 150 mg 05/31/19 09:00 06/02/19 08:09 Effexor Xr PO 150 mg DAILY KEMAL Administration Verapamil HCl 180 mg 05/31/19 09:00 06/02/19 08:09 Calan Er PO 180 mg DAILY KEMAL Administration - Exam ill appearing Eye: PERRL, anicteric sclera ENT: no oropharyngeal lesions, moist mucosa Neck: supple, no JVD Heart: RRR, no murmur Respiratory: no wheezes, no rales Gastrointestinal: soft, non-distended, normal bowel sounds Extremities: no cyanosis, 1+ LE edema Skin: no lesions Neurological: CN's grossly intact, no focal deficits Musculoskeletal: generalized weakness Hosp A/P (1) Hypernatremia Code(s): E87.0 - HYPEROSMOLALITY AND HYPERNATREMIA Status: Acute (2) Sepsis with acute organ dysfunction Code(s): A41.9 - SEPSIS, UNSPECIFIED ORGANISM; R65.20 - SEVERE SEPSIS WITHOUT SEPTIC SHOCK Status: Acute (3) Type 2 myocardial infarction Code(s): I21.A1 - MYOCARDIAL INFARCTION TYPE 2 Status: Resolved (4) UTI (urinary tract infection) Status: Acute Qualifiers: Urinary tract infection type: acute cystitis (5) Anxiety and depression Code(s): F41.9 - ANXIETY DISORDER, UNSPECIFIED; F32.9 - MAJOR DEPRESSIVE DISORDER, SINGLE EPISODE, UNSPECIFIED Status: Chronic (6) BPH (benign prostatic hyperplasia) Code(s): N40.0 - BENIGN PROSTATIC HYPERPLASIA WITHOUT LOWER URINRY TRACT SYMP Status: Chronic (7) DM2 (diabetes mellitus, type 2) Status: Chronic Qualifiers: Diabetes mellitus residential insulin use: with residential use Diabetes mellitus complication status: with other specified complication Qualified Code (s): E11.69 - Type 2 diabetes mellitus with other specified complication; Z79.4 - MCC (current) use of insulin (8) HTN (hypertension) Code(s): I10 - ESSENTIAL (PRIMARY) HYPERTENSION Status: Chronic Qualifiers: (9) Nephrolithiasis Status: Chronic (10) Parkinson disease Code(s): G20 - PARKINSON'S DISEASE Status: Chronic (11) Physical deconditioning Code(s): R53.81 - OTHER MALAISE Status: Chronic (12) Schizoaffective disorder Code(s): F25.9 - SCHIZOAFFECTIVE DISORDER, UNSPECIFIED Status: Chronic (13) Acute kidney failure Status: Resolved (14) Acute metabolic encephalopathy Code(s): G93.41 - METABOLIC ENCEPHALOPATHY Status: Acute - Plan d/w Palliative care, they had extensive conference call and discussions with family including his sister and POA. Per their conversation, pt is DNAR and for comfort measures at snf. I will talk to and update him about families wishes. d/w , he will wait for 2 more weeks and see if he perks a bit to reduce anesthesia risk. Plan is for dc in am to snf with comfort measures. Continue D5W, sod around 145 this am. Encourage po intake of fluids and meals, needs help for feeding.
[2019-06-02] MEDS: HumaLOG 300 UNITS/3 ML VIAL SC PRN (14:25)
[2019-06-02] MEDS: OLANZapine 5 MG TAB PO SCH (21:01)
[2019-06-02] MEDS: Atorvastatin Calcium 20 MG TAB PO SCH (21:03)
[2019-06-02] MEDS: OXcarbazepine 300 MG TAB PO SCH (21:03)
[2019-06-03] MEDS: Dextrose 5% in Water 1,000 ML IV SCH ×2 (02:43→11:52)
[2019-06-03] MEDS: Meropenem 500 MG in Sodium Chloride 0.9% 100 ML IVPB SCH ×2 (03:25→11:50)
[2019-06-03 07:28] VITALS: BP 149/77; TEMP 99.1
[2019-06-03 07:36] LABS: Anion Gap 13 mmol/L (10-20); BUN (Urea Nitrogen) 15 mg/dL (8.4-25.7); Calc. Creatinine Clearance 116 mL/min (70-130); Calcium 9.7 mg/dL (7.8-10.44); Carbon Dioxide 25 mmol/L (23-31); Chloride 109 mmol/L (98-107); Estimated GFR-MDRD Greater than 90; Glucose 209 mg/dL (80-115); Magnesium 1.5 mg/dL (1.6-2.6); Phosphorus 2.1 mg/dL (2.3-4.7); Potassium 4.2 mmol/L (3.5-5.1); Sodium 143 mmol/L (136-145)
[2019-06-03] MEDS ORDERED: Clopidogrel Bisulfate 75 MG TAB ONE (07:58)
[2019-06-03] MEDS: Docusate 100 MG CAP PO SCH (08:19)
[2019-06-03] MEDS: Carbidopa/Levodopa 25-250 mg Tablet PO SCH ×2 (08:20→15:41)
[2019-06-03] MEDS: Tamsulosin HCl 0.4 MG CAP PO SCH (08:20)
[2019-06-03] MEDS: Heparin 5,000 UNITS/ML VIAL SC SCH (08:20)
[2019-06-03] MEDS: Venlafaxine HCl XR 150 MG CAP PO SCH (08:20)
[2019-06-03] MEDS: Levothyroxine Sodium 50 MCG TAB PO SCH (08:20)
[2019-06-03] MEDS: Lubiprostone 24 MCG CAP PO SCH (08:21)
[2019-06-03] MEDS: metFORMIN 500 MG TAB PO SCH (08:21)
[2019-06-03] MEDS: Insulin Glargine 15 UNITS in Pre-Filled Syringe 1 EACH SC SCH (08:21)
[2019-06-03] MEDS: Nystatin Powder 15 GM BOT TOP SCH ×2 (08:23→15:42)
--- NOTE | 2019-06-03 17:33 | PRG ---
DATE OF SERVICE: 06/03/2019 SUBJECTIVE: The patient noted with the following vital signs. OBJECTIVE: VITAL SIGNS: Afebrile, temperature 99.1, pulse 83, respiratory rate of 20, O2 saturation of 96%, and blood pressure 149/77. HEENT: Unremarkable. CARDIOVASCULAR SYSTEM: First and second heart sounds were heard. RESPIRATORY SYSTEM: Clear to auscultation. DIGESTIVE SYSTEM: Revealed a benign abdomen with positive bowel sounds. EXTREMITIES: No peripheral edema. SKIN: No new gross rash. LYMPHATICS: No peripheral lymphadenopathy. IMPRESSION: Hypernatremia in the context of free water deficit seems to have improved, status post free water repletion. PLAN: 1. Continue to encourage water intake. 2. Further management to be dependent on the clinical course. Job ID: [id number]
--- NOTE | 2019-06-03 19:10 | DIS ---
DATE OF ADMISSION: 05/28/2019 DATE OF DISCHARGE: 06/03/2019 DISCHARGE DISPOSITION: [facility] with comfort care. PRIMARY DISCHARGE DIAGNOSES: Severe dehydration with hypernatremia, resolved; sepsis with urinary tract infection, resolved; type 2 myocardial infarction; severe deconditioning; history of Parkinson disease; schizoaffective disorder; nephrolithiasis, for likely outpatient lithotripsy when he is more stable; diabetes mellitus type 2; benign prostatic hypertrophy; mood disorder; initial acute kidney injury, resolved; acute metabolic encephalopathy on arrival, resolving, likely at his baseline. PROCEDURES DONE DURING HOSPITALIZATION: CT abdomen and pelvis without contrast done showed right ureteral stent in place. No evidence of urinary tract obstruction. Bilateral renal calculi. Atherosclerosis was seen. Chest x-ray done on admission showed no focal consolidation or edema. CT brain without contrast done showed periventricular hypodensity with prominence of the ventricular system. There is a stable finding when compared to prior CAT scans including a CAT scan done on 11/04/2014. No intracranial hemorrhage. Had a white count of 20 on the with H and H of 14 and 45, platelet count 314. White count was 13 on . Discharge BUN and creatinine were 15 and 0.7. Discharge sodium is 143. Serum bicarb on the day of discharge 25. Had a sodium of 153 with BUN and creatinine of 91 and 2.4 on admission. Serum bicarb was 20. CK level is 971. Troponin I indeterminate with peaking up to 0.15. BNP 79. Albumin 4.1. UA showed findings of UTI. Blood cultures x2, no growth. Urine culture, no growth. INPATIENT CONSULTS: 1. Dr. Hall for Pulmonary/Critical Care. 2. Dr. Nick Garcia/Fernanda for Urology. 3. Dr. Shaquille Padilla for Nephrology. BRIEF COURSE DURING HOSPITALIZATION: The patient was sent over from [facility] for increasing altered mental state. He was essentially encephalopathic on arrival. His blood pressure was low and severe sepsis. He had a recent diagnosis of UTI and had a stent to the right ureter during his last admission here. He was admitted to [facility]. He has had fluid resuscitation. His initial BUN and creatinine were 91 and 2.4. He has had consultation with Dr. Corbin for Nephrology, Dr. Michael for Urology, Dr. Hall for Pulmonary Critical Care. The patient has severe deconditioning and has not been able to mobilize himself even on the bed at present. He had outpatient plans for lithotripsy today, but in view of the patient's severe deconditioning and physical condition, this has been postponed. In view of the patient's physical condition and underlying multiple medical issues, palliative care consultation was requested. The family have opted for comfort care at the [facility]. As the patient does not have Medicaid, the family is not able to help financially to have hospice at the [facility]. In view of this, he will be under comfort care and will update Dr. Leiva, his primary care physician at [facility] about family's wishes. His overall prognosis is guarded. His serum sodium has slowly resolved and has come back to baseline. His renal function is back to his baseline with creatinine of 0.7 on the day of discharge. A total of 35 minutes was spent on discharge plan. Please see a [id number] documentation for the day of discharge on [employer]. Job ID: [id number]
== END 2019-06-03 15:48 | DRG 871 ==
LOC: ERS 11:35 → IMCU/EMU 13:11 → T4-B 05-29 15:18
PROVIDERS: ADMIT Internal Medicine; ATTEND Internal Medicine
DX: A41.9 Sepsis, unspecified organism (principal); G93.41 Metabolic encephalopathy; I21.A1 Myocardial infarction type 2; E87.0 Hyperosmolality and hypernatremia; N17.9 Acute kidney failure, unspecified; E87.2 Acidosis; Z66 Do not resuscitate; K21.9 Gastro-esophageal reflux disease without esophagitis; E11.9 Type 2 diabetes mellitus without complications; E78.5 Hyperlipidemia, unspecified; I10 Essential (primary) hypertension; G20 Parkinson's disease; E66.9 Obesity, unspecified; R29.6 Repeated falls; N40.0 Benign prostatic hyperplasia without lower urinary tract symptoms; F41.9 Anxiety disorder, unspecified; F32.9 Major depressive disorder, single episode, unspecified; F20.9 Schizophrenia, unspecified; R65.20 Severe sepsis without septic shock; E87.8 Other disorders of electrolyte and fluid balance, not elsewhere classified; E83.52 Hypercalcemia; E86.0 Dehydration; Z51.5 Encounter for palliative care; Z87.440 Personal history of urinary (tract) infections; Z79.4 Long term (current) use of insulin; Z79.899 Other long term (current) drug therapy; Z68.26 Body mass index [BMI] 26.0-26.9, adult
CPT/HCPCS: 36415; 36416; 36556; 51702; 70450; 71045; 74176; 80048; 80053; 81003; 81015; 82550; 82553; 83605; 83690; 83735; 83880; 84100; 84484; 85025; 87040; 87086; 93005; 96365; 96367; J0692; J1644; J1815; J1956; J2185; J3370; J3480; J3490; J7050